=== PATIENT | female | born 1935 | race Caucasian/White ===

== ENCOUNTER 2017-07-11 14:43 | Inpatient (IN) | payer MEDICARE, BC ==
[~2017-07-11] VITALS: Ht 162.6 cm; Wt 46.3 kg
[2017-07-11] MEDS ORDERED: Sodium Chloride 500ML 500 ML IV ONE (15:09)
[2017-07-11 15:10] VITALS: BP 123/63
[2017-07-11] MEDS ORDERED: VITAMIN C500 M1 ORAL (15:20)
[2017-07-11] MEDS ORDERED: ASPIRIN-LOW81 MG ORAL (15:20)
[2017-07-11] MEDS ORDERED: IMODIUM A-D2 M2 PO (15:20)
[2017-07-11] MEDS ORDERED: VITAMIN B122500 MCG PO (15:20)
[2017-07-11] MEDS ORDERED: SINEMET 25-1001 EAC1 ORAL (15:20)
[2017-07-11] MEDS ORDERED: CALCIUM500 M2 PO (15:20)
[2017-07-11] MEDS ORDERED: CRANBERRY400 MG PO (15:20)
[2017-07-11] MEDS ORDERED: OMEPRAZOLE20 M2 ORAL (15:20)
[2017-07-11] MEDS ORDERED: DONEPEZIL HCL10 M2 ORAL (15:20)
[2017-07-11] MEDS ORDERED: UNOBMED (15:20)
[2017-07-11] MEDS ORDERED: OMEGA 3 1,0001 EACH PO (15:20)
[2017-07-11] MEDS ORDERED: VITAMIN D1000 UNI1 ORAL (15:20)
[2017-07-11] MEDS ORDERED: MACULAR HEALTH1 EACH PO (15:20)
[2017-07-11] MEDS ORDERED: MIRTAZAPINE15 M3 ORAL (15:20)
[2017-07-11 15:59] LABS: BASOPHILS % (AUTO) 0.6 % (0.0-2.0); EOSINOPHILS % (AUTO) 1.1 % (0.0-3.0); HEMATOCRIT 37.7 % (37.0-47.0); HEMOGLOBIN 11.9 G/DL (12.0-16.0); LYMPHOCYTES % (AUTO) 7.6 % (20.0-45.0); MEAN CORPUSCULAR VOLUME 96 FL (80-99); NEUTROPHILS % (AUTO) 82.6 % (45.0-75.0); PLATELET COUNT 413 K/UL (150-450); RED BLOOD COUNT 3.91 M/UL (4.20-5.40); RED CELL DISTRIBUTION WIDTH 12.7 % (11.6-14.8); WHITE BLOOD COUNT 9.7 K/UL (4.8-10.8)
[2017-07-11 16:05] LABS: ANION GAP 10 mmol/L (5-15); BLOOD UREA NITROGEN 20 mg/dL (7-18); CALCIUM 8.7 MG/DL (8.5-10.1); CARBON DIOXIDE 26 MMOL/L (21-32); CHLORIDE 107 MMOL/L (98-107); CREATININE 0.8 MG/DL (0.55-1.30); POTASSIUM 4.8 MMOL/L (3.5-5.1); SODIUM 142 MMOL/L (136-145)
--- NOTE | 2017-07-11 16:05 | Emergency Room Report ---
History of Present Illness General Chief Complaint: General Complaint Source: Patient, Family Member, Medical Record Present Illness HPI 81-year-old female presents to ED for evaluation. Daughter at bedside states that patient has been increasingly weak and has been losing weight. Has lost over 20 pounds. [facility] Daughter states patient also has increased right hip pain for last 1 year. Had x-rays which were negative but patient continues to have pain with walking. Patient denies any pain at this time because she is resting. Denies chest pain or shortness of breath fevers or chills. No other aggravating relieving factors. Denies any other associated symptoms Allergies: Coded Allergies: DICLOFENAC (Verified Allergy, Unknown, 07/11/17) SULFA (SULFONAMIDE ANTIBIOTICS) (Verified Allergy, Unknown, 07/11/17) SULFAMETHOXAZOLE (Verified Allergy, Unknown, 07/11/17) TRIMETHOPRIM (Verified Allergy, Unknown, 07/11/17) Patient History Past Medical History: none Past Surgical History: none Pertinent Family History: none Social History: Denies: smoking, alcohol use, drug use Last Menstrual Period: Post Now: No Immunizations: UTD Reviewed Nursing Documentation: PMH: Agreed, PSxH: Agreed Review of Systems All Other Systems: negative except mentioned in HPI Physical Exam Vital Signs Date Time Temp Pulse Resp B/P (MAP) Pulse Ox O2 Delivery O2 Flow Rate FiO2 07/11/17 14:54 98.4 86 17 123/63 97 Room Air Sp02 EP Interpretation: reviewed, normal General Appearance: no apparent distress, alert, GCS 15, non-toxic, cachetic Head: normocephalic, atraumatic Eyes: bilateral eye normal inspection, bilateral eye PERRL ENT: hearing grossly normal, normal pharynx, no angioedema, normal voice Neck: full range of motion, supple/symm/no masses Respiratory: chest non-tender, lungs clear, normal breath sounds, speaking full sentences Cardiovascular #1: regular rate, rhythm, no edema Cardiovascular #2: 2+ carotid (R), 2+ carotid (L), 2+ radial (R), 2+ radial (L) , 2+ dorsalis pedis (R), 2+ dorsalis pedis (L) Gastrointestinal: normal bowel sounds, non tender, soft, non-distended, no guarding, no rebound Rectal: deferred Genitourinary: normal inspection, no CVA tenderness Musculoskeletal: back normal, gait/station normal, normal range of motion, non- tender Neurologic: alert, oriented x3, responsive, motor strength/tone normal, sensory intact, speech normal Psychiatric: judgement/insight normal, memory normal, mood/affect normal, no suicidal/homicidal ideation Reflexes: 3+ bicep (R), 3+ bicep (L), 3+ tricep (R), 3+ tricep (L), 3+ knee (R) , 3+ knee (L) Skin: normal color, no rash, warm/dry, well hydrated Lymphatic: no adenopathy Medical Decision Making Diagnostic Impression: Primary Impression: FTT (failure to thrive) in adult Additional Impressions: Weakness Hip pain, right ER Course Hospital Course 81-year-old female presenting to ED with generalized weakness, weight loss Differential diagnoses include: Pneumonia, UTI, sepsis, dehydration, CO/ unstable angina, failure to thrive Clinical course Patient placed on stretcher. On monitor tech with stable vitals. After initial history and physical, I ordered labs, IV fluids, EKG, chest x-ray, CT Pelvis Labs - no leukocytosis, hb/hct stable, electrolytes ok, EKG - NSR, no acute ischemic changes interpreted by me CXR - ? L lobar infiltrate vs nodule CT Pelvis - severe degenerative changes in bialteral hips abx given. Case discussed with Dr Carrasco and they agreed to admit patient to their service for further care and support I feel this is a highly complex case requiring extensive working including EKG/ Rhythm strip, Xray/CT/US, Blood/urine lab work, repeat exams while in ED, and administration of strong opiates/narcotics for pain control, admission to hospital or close patient follow up. Diagnosis - failure to thrive, weakness, R hip pain Patient admitted to floor in serious condition Labs Test 07/11/17 13:45 07/11/17 16:40 White Blood Count 9.7 K/UL (4.8-10.8) Red Blood Count 3.91 M/UL (4.20-5.40) Hemoglobin 11.9 G/DL (12.0-16.0) Hematocrit 37.7 % (37.0-47.0) Mean Corpuscular Volume 96 FL (80-99) Mean Corpuscular Hemoglobin 30.4 PG (27.0-31.0) Mean Corpuscular Hemoglobin Concent 31.6 G/DL (32.0-36.0) Red Cell Distribution Width 12.7 % (11.6-14.8) Platelet Count 413 K/UL (150-450) Mean Platelet Volume 6.6 FL (6.5-10.1) Neutrophils (%) (Auto) 82.6 % (45.0-75.0) Lymphocytes (%) (Auto) 7.6 % (20.0-45.0) Monocytes (%) (Auto) 8.0 % (1.0-10.0) Eosinophils (%) (Auto) 1.1 % (0.0-3.0) Basophils (%) (Auto) 0.6 % (0.0-2.0) Sodium Level 142 MMOL/L (136-145) Potassium Level 4.8 MMOL/L (3.5-5.1) Chloride Level 107 MMOL/L (98-107) Carbon Dioxide Level 26 MMOL/L (21-32) Anion Gap 10 mmol/L (5-15) Blood Urea Nitrogen 20 mg/dL (7-18) Creatinine 0.8 MG/DL (0.55-1.30) Estimat Glomerular Filtration Rate mL/min (>60) Glucose Level 100 MG/DL (74-106) Calcium Level 8.7 MG/DL (8.5-10.1) Total Bilirubin 0.3 MG/DL (0.2-1.0) Aspartate Amino Transf (AST/SGOT) 33 U/L (15-37) Alanine Aminotransferase (ALT/SGPT) 16 U/L (12-78) Alkaline Phosphatase 146 U/L (46-116) Total Protein 6.1 G/DL (6.4-8.2) Albumin 2.7 G/DL (3.4-5.0) Globulin 3.4 g/dL Albumin/Globulin Ratio 0.8 (1.0-2.7) EKG Diagnostic Results Rate: normal Rhythm: NSR ST Segments: no acute changes ASA given to the pt in ED: No Rhythm Strip Diag. Results EP Interpretation: yes Rhythm: NSR, no PVC's, no ectopy Chest X-Ray Diagnostic Results Chest X-Ray Diagnostic Results : Chest X-Ray Ordered: Yes # of Views/Limited/Complete: 1 View Indication: Other - weakness EP Interpretation: Yes Interpretation: no pneumothorax, no acute cardiopulmonary disease, other - LLL infiltrate Impression: Other - pneumonia Electronically Signed by: Electronically signed by Kenny Wilde MD CT/MRI/US Diagnostic Results CT/MRI/US Diagnostic Results : Imaging Test Ordered: CT PElvis Impression severe degeneratives changes bilateral hips Last Vital Signs Date Time Temp Pulse Resp B/P (MAP) Pulse Ox O2 Delivery O2 Flow Rate FiO2 07/11/17 14:54 98.4 86 17 123/63 97 Room Air Status: improved Disposition: ADMITTED INPATIENT Condition: Serious Referrals: OLAF CARRASCO (PCP) KENNY WILDE M.D. Jul 11, 2017 16:05
[2017-07-11 16:09] LABS: ALANINE AMINOTRANSFERASE 16 U/L (12-78); ALBUMIN 2.7 G/DL (3.4-5.0); ALBUMIN/GLOBULIN RATIO 0.8 (1.0-2.7); ALKALINE PHOSPHATASE 146 U/L (46-116); ASPARTATE AMINO TRANSFERASE 33 U/L (15-37); BILIRUBIN,TOTAL 0.3 MG/DL (0.2-1.0)
--- NOTE | 2017-07-11 16:11 | Diagnostic Imaging Report ---
Indication: Weakness and cough Technique: One view of the chest Comparison: none Findings: Linear and nodular opacities are seen scattered throughout the left mid and lower lung. The right lung and bilateral pleural spaces are clear and the heart size is normal. Impression: Linear and nodular opacities within left lung, as described. Findings could represent infiltrate, postinflammatory changes, or neoplasm, among multiple other possibilities. Recommend follow-up chest radiographs, consideration for CT if findings fail to improve Findings discussed by phone with Dr. Wilde at the time of interpretation
--- NOTE | 2017-07-11 16:59 | Diagnostic Imaging Report ---
Indication: Reason For Exam: PAIN Technique: No oral or IV contrast, per protocol Spiral acquisitions obtained through the pelvis and right hip Multiplanar reconstructions were generated. Total dose length product 241.5 mGycm. CTDIvol(s) 8.4 mGy. Radiation dose was minimized using automated exposure control Comparison: none Findings: There is complete obliteration of the bilateral hip joint spaces. There is subchondrosclerosis and subchondral cyst formation. No acute fractures. No dislocations. Vacuum formation within the bilateral sacroiliac joints is consistent with mild degenerative change. There are degenerative changes of the lumbosacral junction. There is what appears to be a surgical anastomotic staple line in the right side of the pelvis, possibly in the distal ileum. Dense stool is seen in the distal colon. Impression: Severe degenerative changes of both hips No acute bony trauma Evidence of right-sided pelvic surgery The CT scanner at [facility] is accredited by the [employer] and the scans are performed using protocols designed to limit radiation exposure to as low as reasonably achievable to attain images of sufficient resolution adequate for diagnostic evaluation.
[2017-07-11 17:10] VITALS: BP 132/67
[2017-07-11] MEDS ORDERED: Mylanta II UD 30ml ORAL PRN (17:30)
[2017-07-11] MEDS ORDERED: Miralax 17gm pkt ORAL PRN (17:30)
[2017-07-11] MEDS ORDERED: Morphine Sulfate 2mg/ml Inj IVP PRN (17:30)
[2017-07-11] MEDS ORDERED: Zolpidem 5mg tab ORAL PRN (17:30)
[2017-07-11] MEDS ORDERED: LORazepam Inj 2mg/ml 1ml IV PRN (17:30)
[2017-07-11 17:37] VITALS: BP 168/76
[2017-07-11] MEDS: Levodopa/Carbidopa 25/100 tab ORAL SCH (19:54)
[2017-07-11 20:00] VITALS: BP 143/66
[2017-07-11 21:42] LABS: APPEARANCE,URINE CLEAR; BILIRUBIN, URINE NEGATIVE (NEGATIVE); COLOR,URINE PALE YELLOW; GLUCOSE, URINE (UA) NEGATIVE (NEGATIVE); KETONES,URINE NEGATIVE (NEGATIVE); LEUKOCYTE ESTERASE ,URINE 1+ (NEGATIVE); NITRITE,URINE NEGATIVE (NEGATIVE); PH,URINE 6 (4.5-8.0); PROTEIN,URINE NEGATIVE (NEGATIVE); UROBILINOGEN,URINE NORMAL MG/DL (0.0-1.0)
--- NOTE | 2017-07-11 22:59 | History and Physical ---
History of Present Illness General Date patient seen: Jul 11, 2017 Time patient seen: 18:00 Reason for Hospitalization: generalized weakness, weight loss, severe hip pain Present Illness HPI 81y/o female with pm of Parkinson's disease, dementia, GERD who presents with generalized weakness, weight loss and severe b/l hip pain. Daughter at bedside states that patient has been increasingly weak and has been losing weight. Pt has lost over 20 pounds. Pt notes poor appetite. Patient resides in an [facility]. Daughter states patient also has increased R>L hip pain for last 1 year. Had x- rays which were negative but patient continues to have pain with walking. Because of the pain pt has not been doing much activity. Patient denies any pain at this time because she is resting. Daughter also notes pt has been more confused lately. Denies f/c, n/v, d/c, chest pain, SOB, cough, abd pain, dysuria. Pt was recently seen by her neurologist a few weeks ago and her Sinemet dose was reduced from TID to BID given lethargy/weakness. In ED, CXR w/ concern for infiltrate, given Levaquin. Allergies: Coded Allergies: DICLOFENAC (Verified Allergy, Unknown, 07/11/17) SULFA (SULFONAMIDE ANTIBIOTICS) (Verified Allergy, Unknown, 07/11/17) SULFAMETHOXAZOLE (Verified Allergy, Unknown, 07/11/17) TRIMETHOPRIM (Verified Allergy, Unknown, 07/11/17) Medication History Scheduled Ascorbic Acid* (Vitamin C*), 500 MG ORAL DAILY, (Reported) Aspirin (Aspirin EC), 81 MG ORAL DAILY, (Reported) Calcium Carbonate (Calcium), 500 MG PO DAILY, (Reported) Carbidopa/Levodopa 25-100 Mg* (Sinemet 25-100 Mg Tablet*), 1 TAB ORAL BID, ( Reported) Cholecalciferol (Vitamin D3)* (Vitamin D*), 1,000 UNIT ORAL DAILY, (Reported) Cranberry (Cranberry), 400 MG PO BEDTIME, (Reported) Cyanocobalamin (Vitamin B-12) (Vitamin B12), 2,500 MCG PO DAILY, (Reported) Donepezil Hcl* (Donepezil Hcl*), 10 MG ORAL HS, (Reported) Mirtazapine* (Mirtazapine*), 15 MG ORAL BEDTIME, (Reported) Mv-Mn/Lutein/Zeax/Bilber/Hb277 (Macular Health Formula Capsule), 1 EACH PO DAILY , (Reported) [place]-3 Fatty Acids/Fish Oil ([place] 3 1,000 Mg Softgel), 1 EACH PO DAILY, ( Reported) Omeprazole (Omeprazole), 20 MG ORAL DAILY, (Reported) Scheduled PRN Loperamide HCl (Imodium A-D), 2 MG PO EVERY 6 HOURS PRN for Diarrhea, (Reported) Miscellaneous Medications Unable to Obtain Medications (Unable To Obtain Meds), (Reported) Patient History History Provided By: Patient, Family Member, Medical Record, PMD Healthcare decision maker NICO PA Resuscitation status DNR/DNI Advanced Directive on File Yes Past Medical/Surgical History Past Medical/Surgical History: (1) Parkinsons disease (2) Dementia (3) GERD (gastroesophageal reflux disease) Family History Family History: Patient reports no known family medical history. Social History Social History: (1) Lives in assisted living facility Review of Systems Constitutional: Reports: malaise, weakness Eye: Reports: no symptoms ENT: Reports: no symptoms Respiratory: Reports: no symptoms Cardiovascular: Reports: no symptoms Gastrointestinal: Reports: no symptoms Genitourinary: Reports: no symptoms Musculoskeletal: Reports: joint pain Skin: Reports: no symptoms Psychiatric: Reports: no symptoms Neurological: Reports: no symptoms Endocrine: Reports: no symptoms Hematologic/Lymphatic: Reports: no symptoms All Other Systems: negative except mentioned in HPI Physical Exam Physical Exam Narrative General: alert, cooperative, no distress, appears stated age, thin Head: normocephalic, without obvious abnormality, atraumatic Eyes: conjunctivae/corneas clear. PERRL, EOM's intact Throat: lips, mucosa, and tongue normal. MMM Neck: supple, symmetrical, trachea midline, and no JVD Lungs: clear to auscultation bilaterally Heart: regular rate and rhythm, S1, S2 normal, no murmur, click, rub or gallop Abdomen: soft, non-tender, non-distended, bowel sounds normal Extremities: extremities normal, atraumatic, no cyanosis or edema Pulses: 2+ and symmetric Skin: skin color, texture, turgor normal; no rashes or lesions Neurologic: grossly normal, no focal deficits Last 24 Hour Vital Signs Date Time Temp Pulse Resp B/P (MAP) Pulse Ox O2 Delivery O2 Flow Rate FiO2 07/11/17 20:00 98.2 80 18 143/66 96 07/11/17 20:00 Room Air 07/11/17 17:37 97.5 74 18 168/76 97 07/11/17 17:10 98.4 85 20 132/67 98 Room Air 07/11/17 17:10 85 20 132/67 98 Room Air 07/11/17 15:10 98.4 84 20 123/63 97 Room Air 07/11/17 14:54 98.4 86 17 123/63 97 Room Air Laboratory Tests Test 07/11/17 13:45 07/11/17 16:40 07/11/17 20:20 White Blood Count 9.7 K/UL (4.8-10.8) Red Blood Count 3.91 M/UL (4.20-5.40) L Hemoglobin 11.9 G/DL (12.0-16.0) L Hematocrit 37.7 % (37.0-47.0) Mean Corpuscular Volume 96 FL (80-99) Mean Corpuscular Hemoglobin 30.4 PG (27.0-31.0) Mean Corpuscular Hemoglobin Concent 31.6 G/DL (32.0-36.0) L Red Cell Distribution Width 12.7 % (11.6-14.8) Platelet Count 413 K/UL (150-450) Mean Platelet Volume 6.6 FL (6.5-10.1) Neutrophils (%) (Auto) 82.6 % (45.0-75.0) H Lymphocytes (%) (Auto) 7.6 % (20.0-45.0) L Monocytes (%) (Auto) 8.0 % (1.0-10.0) Eosinophils (%) (Auto) 1.1 % (0.0-3.0) Basophils (%) (Auto) 0.6 % (0.0-2.0) Sodium Level 142 MMOL/L (136-145) Potassium Level 4.8 MMOL/L (3.5-5.1) Chloride Level 107 MMOL/L (98-107) Carbon Dioxide Level 26 MMOL/L (21-32) Anion Gap 10 mmol/L (5-15) Blood Urea Nitrogen 20 mg/dL (7-18) H Creatinine 0.8 MG/DL (0.55-1.30) Estimat Glomerular Filtration Rate mL/min (>60) Glucose Level 100 MG/DL (74-106) Calcium Level 8.7 MG/DL (8.5-10.1) Total Bilirubin 0.3 MG/DL (0.2-1.0) Aspartate Amino Transf (AST/SGOT) 33 U/L (15-37) Alanine Aminotransferase (ALT/SGPT) 16 U/L (12-78) Alkaline Phosphatase 146 U/L (46-116) H Total Protein 6.1 G/DL (6.4-8.2) L Albumin 2.7 G/DL (3.4-5.0) L Globulin 3.4 g/dL Albumin/Globulin Ratio 0.8 (1.0-2.7) L Lactic Acid Level 1.90 mmol/L (0.66-2.22) Urine Color Pale yellow Urine Appearance Clear Urine pH 6 (4.5-8.0) Urine Specific [place] 1.015 (1.005-1.035) Urine Protein Negative (NEGATIVE) Urine Glucose (UA) Negative (NEGATIVE) Urine Ketones Negative (NEGATIVE) Urine Occult Blood Negative (NEGATIVE) Urine Nitrite Negative (NEGATIVE) Urine Bilirubin Negative (NEGATIVE) Urine Urobilinogen Normal MG/DL (0.0-1.0) Urine Leukocyte Esterase 1+ (NEGATIVE) H Urine RBC 0-2 /HPF (0 - 2) Urine WBC 2-4 /HPF (0 - 2) Urine Squamous Epithelial Cells Few /LPF (NONE/OCC) Urine Amorphous Sediment Few /LPF (NONE) H Urine Bacteria Few /HPF (NONE) Height (Feet): 5 Height (Inches): 4.00 Weight (Pounds): 102 Medications Current Medications Medications (Trade) Dose Ordered Sig/Mary Route PRN Reason Start Time Stop Time Status Last Admin Dose Admin Acetaminophen (Tylenol) 650 mg Q4H PRN ORAL fever 07/11/17 17:30 08/10/17 17:29 Al Hydroxide/Mg Hydroxide (Mylanta II) 30 ml Q6H PRN ORAL dyspepsia 07/11/17 17:30 08/10/17 17:29 Carbidopa/Levodopa (Sinemet 25/100) 1 tab BID ORAL 07/11/17 18:00 08/10/17 17:59 07/11/17 19:54 Dextrose (Dextrose 50%) STAT PRN IV Hypoglycemia 07/11/17 17:30 08/10/17 17:29 Donepezil HCl (Aricept) 10 mg DAILY ORAL 07/12/17 09:00 08/11/17 08:59 Lorazepam (Ativan 2mg/ml 1ml) 0.5 mg Q4H PRN IV For Anxiety 07/11/17 17:30 07/18/17 17:29 Mirtazapine (Remeron) 15 mg BEDTIME ORAL 07/11/17 21:00 08/10/17 20:59 07/11/17 21:23 Morphine Sulfate (Morphine Sulfate) 1 mg Q4H PRN IVP For Pain Scale 4-10 07/11/17 17:30 07/18/17 17:29 Ondansetron HCl (Zofran) 4 mg Q6H PRN IVP Nausea & Vomiting 07/11/17 17:30 08/10/17 17:29 Polyethylene Glycol (Miralax) 17 gm HSPRN PRN ORAL Constipation 07/11/17 17:30 08/10/17 17:29 Zolpidem Tartrate (Ambien) 5 mg HSPRN PRN ORAL Insomnia 07/11/17 17:30 07/18/17 17:29 Assessment/Plan Problem List: (1) FTT (failure to thrive) in adult ICD Codes: R62.7 - Adult failure to thrive SNOMED: 300261074 (2) Severe bilateral hip osteoarthritis (3) Acute encephalopathy ICD Codes: G93.40 - Encephalopathy, unspecified SNOMED: 7849625 (4) Dementia ICD Codes: F03.90 - Unspecified dementia without behavioral disturbance SNOMED: 56186135 (5) Parkinsons disease ICD Codes: G20 - Parkinson's disease SNOMED: 99280855 (6) GERD (gastroesophageal reflux disease) ICD Codes: K21.9 - Gastro-esophageal reflux disease without esophagitis SNOMED: 750788940 (7) Severe protein-calorie malnutrition ICD Codes: E43 - Unspecified severe protein-calorie malnutrition SNOMED: 153277374 Status: stable Assessment/Plan Admit inpt mIVFs Nutritional eval Trend lytes and replete Swallow eval Check B12/folate, TSH, RPR, vit D to r/o metoblic etiologies of AMS F/u urine cx Pulm consulted given findings on CXR s/p Levaquin in ED PT/OT eval Pain control, bowel regimen Supportive care DVT Prophylaxis: SCD, HSQ Code Status: Full Hospital Classification Declaration: Based on this initial evaluation, and depending on the patient's clinical course, I anticipate that this patient will require hospitalization for 2-3 days for FTT, AMS, and close respiratory/ hemodynamic monitoring. Disposition: Once the patient is stable to leave the hospital, I anticipate the patient will likely be discharged to the following environment: [facility] I spen 70 minutes on this patient's case, and >50% was dedicated to counseling and/or care coordination. Discussed with patient/family, nursing staff, SW/CM, ER physician, pulm regarding clinical status, treatment course, and disposition planning. D/w daughter extensively regarding plan of care Time of note may not reflect time of encounter. Juan Bar M.D. Jul 11, 2017 22:59
[2017-07-12] VITALS: BP 139/82
[2017-07-12 04:00] VITALS: BP 144/86
[2017-07-12 07:58] LABS: BASOPHILS % (AUTO) 0.8 % (0.0-2.0); EOSINOPHILS % (AUTO) 1.8 % (0.0-3.0); HEMATOCRIT 38.8 % (37.0-47.0); HEMOGLOBIN 12.3 G/DL (12.0-16.0); LYMPHOCYTES % (AUTO) 11.8 % (20.0-45.0); MEAN CORPUSCULAR VOLUME 98 FL (80-99); MONOCYTES % (AUTO) 8.1 % (1.0-10.0); NEUTROPHILS % (AUTO) 77.5 % (45.0-75.0); PLATELET COUNT 462 K/UL (150-450); RED BLOOD COUNT 3.98 M/UL (4.20-5.40); WHITE BLOOD COUNT 9.6 K/UL (4.8-10.8)
[2017-07-12 08:00] VITALS: BP 103/55
[2017-07-12 08:36] LABS: ALANINE AMINOTRANSFERASE 16 U/L (12-78); ALBUMIN 2.9 G/DL (3.4-5.0); ALBUMIN/GLOBULIN RATIO 0.8 (1.0-2.7); ALKALINE PHOSPHATASE 140 U/L (46-116); ANION GAP 9 mmol/L (5-15); ASPARTATE AMINO TRANSFERASE 22 U/L (15-37); BILIRUBIN,TOTAL 0.4 MG/DL (0.2-1.0); BLOOD UREA NITROGEN 13 mg/dL (7-18); CALCIUM 9.2 MG/DL (8.5-10.1); CARBON DIOXIDE 29 MMOL/L (21-32); CHLORIDE 106 MMOL/L (98-107); CHOLESTEROL 144 MG/DL (< 200); CREATININE 0.7 MG/DL (0.55-1.30); HDL CHOLESTEROL 49 MG/DL (40-60); SODIUM 144 MMOL/L (136-145); TRIGLYCERIDES 107 MG/DL (30-150)
[2017-07-12] MEDS: Donepezil 10mg tab ORAL SCH (08:57)
[2017-07-12] MEDS: Levodopa/Carbidopa 25/100 tab ORAL SCH ×2 (08:57→18:12)
[2017-07-12 11:47] VITALS: BP 131/63
[2017-07-12 16:00] VITALS: BP 136/73
--- NOTE | 2017-07-12 17:57 | General Progress Note ---
Assessment/Plan Problem List: (1) FTT (failure to thrive) in adult ICD Codes: R62.7 - Adult failure to thrive SNOMED: 634921394 (2) Severe bilateral hip osteoarthritis (3) Acute encephalopathy ICD Codes: G93.40 - Encephalopathy, unspecified SNOMED: 0170638 (4) Dementia ICD Codes: F03.90 - Unspecified dementia without behavioral disturbance SNOMED: 65519940 (5) Parkinsons disease ICD Codes: G20 - Parkinson's disease SNOMED: 91608526 (6) GERD (gastroesophageal reflux disease) ICD Codes: K21.9 - Gastro-esophageal reflux disease without esophagitis SNOMED: 144943005 (7) Severe protein-calorie malnutrition ICD Codes: E43 - Unspecified severe protein-calorie malnutrition SNOMED: 173730192 Status: stable Assessment/Plan Will consult neurology given concern for worsening confusion Nutritional eval MVI daily started Ensure TID F/u calorie counts Trend lytes and replete. Monitor for refeeding syndrome Swallow eval--soft easy to chew, nectar thick liquids Check B12/folate, TSH, RPR, vit D to r/o metabolic etiologies of AMS F/u urine cx Pulm consulted given findings on CXR s/p Levaquin in ED PT/OT eval Pain control, bowel regimen Supportive care DVT Prophylaxis: SCD, HSQ Code Status: DNR/DNI Hospital Classification Declaration: Based on this initial evaluation, and depending on the patient's clinical course, I anticipate that this patient will require hospitalization for 2-3 days for FTT, AMS, and close respiratory/ hemodynamic monitoring. Disposition: Once the patient is stable to leave the hospital, I anticipate the patient will likely be discharged to the following environment: back to [facility] vs SNF Discussed with patient/family, nursing staff, SW/CM, ER physician, pulm regarding clinical status, treatment course, and disposition planning. D/w daughter extensively regarding plan of care Time of note may not reflect time of encounter. Subjective Date patient seen: Jul 12, 2017 Time patient seen: 12:00 ROS Limited/Unobtainable: Yes Constitutional: Reports: malaise, weakness HEENT: Reports: no symptoms Cardiovascular: Reports: no symptoms Respiratory: Reports: no symptoms Gastrointestinal/Abdominal: Reports: no symptoms Genitourinary: Reports: no symptoms Neurologic/Psychiatric: Reports: no symptoms Endocrine: Reports: no symptoms, unexplained weight loss Hematologic/Lymphatic: Reports: no symptoms Allergies: Coded Allergies: DICLOFENAC (Verified Allergy, Unknown, 07/11/17) SULFA (SULFONAMIDE ANTIBIOTICS) (Verified Allergy, Unknown, 07/11/17) SULFAMETHOXAZOLE (Verified Allergy, Unknown, 07/11/17) TRIMETHOPRIM (Verified Allergy, Unknown, 07/11/17) Subjective No acute o/n events Pt cont to have poor PO intake. Daughter at bedside notes that pt is more confused than usual. Per RN, pt attempting to get out of bed on own, so sitter ordered. Advance directive reviewed with daughter and pt is DNR/DNI Objective Last 24 Hour Vital Signs Date Time Temp Pulse Resp B/P (MAP) Pulse Ox O2 Delivery O2 Flow Rate FiO2 07/12/17 11:47 97.9 87 20 131/63 94 07/12/17 08:00 98.2 90 21 103/55 95 07/12/17 04:00 Room Air 07/12/17 04:00 98.0 80 18 144/86 96 07/12/17 00:00 Room Air 07/12/17 00:00 98.1 83 18 139/82 96 07/11/17 20:00 98.2 80 18 143/66 96 07/11/17 20:00 Room Air Intake and Output 07/11/17 07/12/17 19:00 07:00 Intake Total 200 ml Balance 200 ml Intake Oral 200 ml # Voids 15 Laboratory Tests 07/11/17 20:20: Urine Color Pale yellow, Urine Appearance Clear, Urine pH 6, Urine Specific [place] 1.015, Urine Protein Negative, Urine Glucose (UA) Negative, Urine Ketones Negative, Urine Occult Blood Negative, Urine Nitrite Negative, Urine Bilirubin Negative, Urine Urobilinogen Normal, Urine Leukocyte Esterase 1+H, Urine RBC 0-2, Urine WBC 2-4, Urine Squamous Epithelial Cells Few, Urine Amorphous Sediment FewH, Urine Bacteria Few 07/12/17 05:10: White Blood Count 9.6, Red Blood Count 3.98L, Hemoglobin 12.3, Hematocrit 38.8, Mean Corpuscular Volume 98, Mean Corpuscular Hemoglobin 31.0, Mean Corpuscular Hemoglobin Concent 31.8L, Red Cell Distribution Width 13.0, Platelet Count 462H , Mean Platelet Volume 6.4L, Neutrophils (%) (Auto) 77.5H, Lymphocytes (%) (Auto ) 11.8L, Monocytes (%) (Auto) 8.1, Eosinophils (%) (Auto) 1.8, Basophils (%) ( Auto) 0.8, Sodium Level 144, Potassium Level 4.0, Chloride Level 106, Carbon Dioxide Level 29, Anion Gap 9, Blood Urea Nitrogen 13, Creatinine 0.7, Estimat Glomerular Filtration Rate , Glucose Level 78, Calcium Level 9.2, Total Bilirubin 0.4, Aspartate Amino Transf (AST/SGOT) 22, Alanine Aminotransferase ( ALT/SGPT) 16, Alkaline Phosphatase 140H, Total Protein 6.4, Albumin 2.9L, Globulin 3.5, Albumin/Globulin Ratio 0.8L, Triglycerides Level 107, Cholesterol Level 144, LDL Cholesterol 82, HDL Cholesterol 49, Cholesterol/HDL Ratio 2.9L, Vitamin B12 Level > 2000H, Folate 14.3, Thyroid Stimulating Hormone (TSH) 2.706 07/12/17 11:25: Vitamin D 25-Hydroxy [Pending], 25-Hydroxy Vitamin D2 [Pending], 25-Hydroxy Vitamin D3 [Pending] Height (Feet): 5 Height (Inches): 4.00 Weight (Pounds): 102 Objective General: alert, cooperative, no distress, appears stated age, thin Head: normocephalic, without obvious abnormality, atraumatic Eyes: conjunctivae/corneas clear. PERRL, EOM's intact Throat: lips, mucosa, and tongue normal. MMM Neck: supple, symmetrical, trachea midline, and no JVD Lungs: clear to auscultation bilaterally Heart: regular rate and rhythm, S1, S2 normal, no murmur, click, rub or gallop Abdomen: soft, non-tender, non-distended, bowel sounds normal Extremities: extremities normal, atraumatic, no cyanosis or edema Pulses: 2+ and symmetric Skin: skin color, texture, turgor normal; no rashes or lesions Neurologic: grossly normal, no focal deficits, +resting tremor b/l Juan Bar M.D. Jul 12, 2017 17:57
--- NOTE | 2017-07-12 18:31 | Consultation ---
History of Present Illness General Date patient seen: Jul 12, 2017 Chief Complaint: General Complaint Referring physician: Dr Roberson Reason for Consultation: pneumonia Present Illness HPI 81-year-old female with pamhx of mid dementia, Parkinson disease presented to ED for evaluation of increasingly weakness and weight loss. She has lost over 20 pounds. Patient resides in assisted facility. Daughter states patient also has increased right hip pain for last 1 year. Had x-rays which were negative but patient continues to have pain with walking. Patient denies any pain at this time because she is resting. Denies chest pain or shortness of breath fevers or chills. No other aggravating relieving factors. Denies any other associated symptoms. Her cxr showed multiple nodule and I was asked to evaluate those findings. Allergies: Coded Allergies: DICLOFENAC (Verified Allergy, Unknown, 07/11/17) SULFA (SULFONAMIDE ANTIBIOTICS) (Verified Allergy, Unknown, 07/11/17) SULFAMETHOXAZOLE (Verified Allergy, Unknown, 07/11/17) TRIMETHOPRIM (Verified Allergy, Unknown, 07/11/17) Medication History Scheduled Ascorbic Acid* (Vitamin C*), 500 MG ORAL DAILY, (Reported) Aspirin (Aspirin EC), 81 MG ORAL DAILY, (Reported) Calcium Carbonate (Calcium), 500 MG PO DAILY, (Reported) Carbidopa/Levodopa 25-100 Mg* (Sinemet 25-100 Mg Tablet*), 1 TAB ORAL BID, ( Reported) Cholecalciferol (Vitamin D3)* (Vitamin D*), 1,000 UNIT ORAL DAILY, (Reported) Cranberry (Cranberry), 400 MG PO BEDTIME, (Reported) Cyanocobalamin (Vitamin B-12) (Vitamin B12), 2,500 MCG PO DAILY, (Reported) Donepezil Hcl* (Donepezil Hcl*), 10 MG ORAL HS, (Reported) Mirtazapine* (Mirtazapine*), 15 MG ORAL BEDTIME, (Reported) Mv-Mn/Lutein/Zeax/Bilber/Hb277 (Macular Health Formula Capsule), 1 EACH PO DAILY , (Reported) Ararat-3 Fatty Acids/Fish Oil (Ararat 3 1,000 Mg Softgel), 1 EACH PO DAILY, ( Reported) Omeprazole (Omeprazole), 20 MG ORAL DAILY, (Reported) Scheduled PRN Loperamide HCl (Imodium A-D), 2 MG PO EVERY 6 HOURS PRN for Diarrhea, (Reported) Miscellaneous Medications Unable to Obtain Medications (Unable To Obtain Meds), (Reported) Patient History Healthcare decision maker NICO PA Resuscitation status Advanced Directive on File Yes Past Medical/Surgical History Past Medical/Surgical History: (1) Dementia (2) Parkinsons disease Review of Systems All Other Systems: negative except mentioned in HPI Physical Exam General Appearance: cachetic Lines, tubes and drains: peripheral HEENT: normocephalic, atraumatic Neck: non-tender, normal alignment Respiratory/Chest: chest wall non-tender, lungs clear Breasts: no masses Cardiovascular/Chest: normal peripheral pulses Abdomen: normal bowel sounds, non tender Genitourinary/Rectal: normal genital exam, normal rectal exam Extremities: normal range of motion Skin Exam: normal pigmentation Last 24 Hour Vital Signs Date Time Temp Pulse Resp B/P (MAP) Pulse Ox O2 Delivery O2 Flow Rate FiO2 07/12/17 16:00 98.2 86 20 136/73 96 07/12/17 11:47 97.9 87 20 131/63 94 07/12/17 08:00 98.2 90 21 103/55 95 07/12/17 04:00 Room Air 07/12/17 04:00 98.0 80 18 144/86 96 07/12/17 00:00 Room Air 07/12/17 00:00 98.1 83 18 139/82 96 07/11/17 20:00 98.2 80 18 143/66 96 07/11/17 20:00 Room Air Intake and Output 07/11/17 07/12/17 19:00 07:00 Intake Total 200 ml Balance 200 ml Intake Oral 200 ml # Voids 15 Laboratory Tests Test 07/11/17 20:20 07/12/17 05:10 07/12/17 11:25 Urine Color Pale yellow Urine Appearance Clear Urine pH 6 (4.5-8.0) Urine Specific [place] 1.015 (1.005-1.035) Urine Protein Negative (NEGATIVE) Urine Glucose (UA) Negative (NEGATIVE) Urine Ketones Negative (NEGATIVE) Urine Occult Blood Negative (NEGATIVE) Urine Nitrite Negative (NEGATIVE) Urine Bilirubin Negative (NEGATIVE) Urine Urobilinogen Normal MG/DL (0.0-1.0) Urine Leukocyte Esterase 1+ (NEGATIVE) H Urine RBC 0-2 /HPF (0 - 2) Urine WBC 2-4 /HPF (0 - 2) Urine Squamous Epithelial Cells Few /LPF (NONE/OCC) Urine Amorphous Sediment Few /LPF (NONE) H Urine Bacteria Few /HPF (NONE) White Blood Count 9.6 K/UL (4.8-10.8) Red Blood Count 3.98 M/UL (4.20-5.40) L Hemoglobin 12.3 G/DL (12.0-16.0) Hematocrit 38.8 % (37.0-47.0) Mean Corpuscular Volume 98 FL (80-99) Mean Corpuscular Hemoglobin 31.0 PG (27.0-31.0) Mean Corpuscular Hemoglobin Concent 31.8 G/DL (32.0-36.0) L Red Cell Distribution Width 13.0 % (11.6-14.8) Platelet Count 462 K/UL (150-450) H Mean Platelet Volume 6.4 FL (6.5-10.1) L Neutrophils (%) (Auto) 77.5 % (45.0-75.0) H Lymphocytes (%) (Auto) 11.8 % (20.0-45.0) L Monocytes (%) (Auto) 8.1 % (1.0-10.0) Eosinophils (%) (Auto) 1.8 % (0.0-3.0) Basophils (%) (Auto) 0.8 % (0.0-2.0) Sodium Level 144 MMOL/L (136-145) Potassium Level 4.0 MMOL/L (3.5-5.1) Chloride Level 106 MMOL/L (98-107) Carbon Dioxide Level 29 MMOL/L (21-32) Anion Gap 9 mmol/L (5-15) Blood Urea Nitrogen 13 mg/dL (7-18) Creatinine 0.7 MG/DL (0.55-1.30) Estimat Glomerular Filtration Rate mL/min (>60) Glucose Level 78 MG/DL (74-106) Calcium Level 9.2 MG/DL (8.5-10.1) Total Bilirubin 0.4 MG/DL (0.2-1.0) Aspartate Amino Transf (AST/SGOT) 22 U/L (15-37) Alanine Aminotransferase (ALT/SGPT) 16 U/L (12-78) Alkaline Phosphatase 140 U/L (46-116) H Total Protein 6.4 G/DL (6.4-8.2) Albumin 2.9 G/DL (3.4-5.0) L Globulin 3.5 g/dL Albumin/Globulin Ratio 0.8 (1.0-2.7) L Triglycerides Level 107 MG/DL (30-150) Cholesterol Level 144 MG/DL (< 200) LDL Cholesterol 82 mg/dL (<100) HDL Cholesterol 49 MG/DL (40-60) Cholesterol/HDL Ratio 2.9 (3.3-4.4) L Vitamin B12 Level > 2000 PG/ML (193-986) H Folate 14.3 NG/ML (8.6-58.9) Thyroid Stimulating Hormone (TSH) 2.706 uiU/mL (0.358-3.740) Vitamin D 25-Hydroxy Pending 25-Hydroxy Vitamin D2 Pending 25-Hydroxy Vitamin D3 Pending Height (Feet): 5 Height (Inches): 4.00 Weight (Pounds): 102 Medications Current Medications Medications (Trade) Dose Ordered Sig/Mary Route PRN Reason Start Time Stop Time Status Last Admin Dose Admin Acetaminophen (Tylenol) 650 mg Q4H PRN ORAL fever 07/11/17 17:30 08/10/17 17:29 Al Hydroxide/Mg Hydroxide (Mylanta II) 30 ml Q6H PRN ORAL dyspepsia 07/11/17 17:30 08/10/17 17:29 Carbidopa/Levodopa (Sinemet 25/100) 1 tab BID ORAL 07/11/17 18:00 08/10/17 17:59 07/12/17 18:12 Dextrose (Dextrose 50%) STAT PRN IV Hypoglycemia 07/11/17 17:30 08/10/17 17:29 Donepezil HCl (Aricept) 10 mg DAILY ORAL 07/12/17 09:00 08/11/17 08:59 07/12/17 08:57 Heparin Sodium (Porcine) (Heparin 5000 units/ml) 5,000 units EVERY 12 HOURS SUBQ 07/12/17 21:00 08/11/17 20:59 Lorazepam (Ativan 2mg/ml 1ml) 0.5 mg Q4H PRN IV For Anxiety 07/11/17 17:30 07/18/17 17:29 Mirtazapine (Remeron) 15 mg BEDTIME ORAL 07/11/17 21:00 08/10/17 20:59 07/11/17 21:23 Morphine Sulfate (Morphine Sulfate) 1 mg Q4H PRN IVP For Pain Scale 4-10 07/11/17 17:30 07/18/17 17:29 Multivitamins Therapeutic (Therapeutic Multivitamin) 1 ea DAILY ORAL 07/13/17 09:00 08/12/17 08:59 Ondansetron HCl (Zofran) 4 mg Q6H PRN IVP Nausea & Vomiting 07/11/17 17:30 08/10/17 17:29 Polyethylene Glycol (Miralax) 17 gm HSPRN PRN ORAL Constipation 07/11/17 17:30 08/10/17 17:29 Sodium Chloride 1,000 ml @ 75 mls/hr [id number] IV 07/12/17 20:00 08/11/17 19:59 Zolpidem Tartrate (Ambien) 5 mg HSPRN PRN ORAL Insomnia 07/11/17 17:30 07/18/17 17:29 07/11/17 23:45 Assessment/Plan Problem List: (1) nodular infiltrate of lung (2) Weakness ICD Codes: R53.1 - Weakness SNOMED: 36852806 (3) Dementia ICD Codes: F03.90 - Unspecified dementia without behavioral disturbance SNOMED: 79772907 (4) Parkinsons disease ICD Codes: G20 - Parkinson's disease SNOMED: 90041450 (5) FTT (failure to thrive) in adult ICD Codes: R62.7 - Adult failure to thrive SNOMED: 480496469 Assessment/Plan cxr reviewed CT chest ordered doubt bacterial pneumonia sputum induction CEA to look for occult malignancy, renal function better, dc iv fluids pt/ot reviewed DEYSI QUIROS Jul 12, 2017 18:31
--- NOTE | 2017-07-12 19:19 | Consultation ---
Consult Note Consult Note NEUROLOGY CONSULTATION: Full note dictated #[id number] 81 y/o, RH, CF with PH of memory problems that started ~ 4-5 years ago and have progressively worsened, a parkinsonian syndrome that started ~2-3 years ago and has progressively worsened, and GERD. She was hospitalized for FFT and a 20 lb weight loss in the last few months. ON EXAM: Oriented to self only. Problems with recent and remote memory. Parkinsonian syndrome with tremor, rigidity, bradykinesia, hypomimia, hypophonia, PS and PG. IMPRESSION: Poorly controlled PS. Dementia most probably AD. REC Continue present Rx. Change Sinemet 25/100 q 7AM-12 Noon-5 PM. In the future add Namenda to regimen. Keep physically and cognitively engaged. Let her eat whatever she likes. Complete w/u for memory loss. Yousif Snyder M.D., M.S.P.H. YOUSIF SNYDER Jul 12, 2017 19:19
[2017-07-12 20:00] VITALS: BP 153/95
[2017-07-12] MEDS: Heparin 5000 units/ml inj SUBQ SCH (21:51)
--- NOTE | 2017-07-12 22:45 | Consultation ---
DATE OF CONSULTATION: 07/12/2017 NEUROLOGY CONSULTATION CONSULTING PHYSICIAN: Ministerio Snyder M.D. REQUESTING PHYSICIAN: Juan Bar M.D. HISTORY: Ms. Elen Ely is an 81-year-old, right-handed, lady, who does have a past history of memory problems that started approximately 4 to 5 years ago and have progressively worsened, a Parkinson syndrome that started approximately 2 to 3 years ago and has also progressively worsened, and gastroesophageal reflux disease. She apparently lives in an assisted living facility and was noted there to have a progressively worsening appetite. As a result of that, she lost approximately 20 pounds in the last few months and was brought into the hospital for failure to thrive. She tells me that her appetite has worsened significantly and she does not feel like eating. There is no nausea. She has noticed that her memory has been failing and has noticed that this problem is getting progressively worse. She has also noticed that her Parkinsonian tremor has become much worse. Recently, her dose of Sinemet was changed from one tablet three times a day to one tablet twice a day. She has been on Aricept for quite some time now, but at one time, the Aricept was discontinued and then restarted. PAST MEDICAL HISTORY: Significant for cognitive decline, parkinsonian syndrome, and gastroesophageal reflux disease. FAMILY HISTORY: One of her maternal aunts had dementia and a parkinsonian syndrome. PERSONAL HISTORY: Home: She lives in an assisted living facility. 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 Habits: She used to smoke in the past, but stopped smoking numerous years ago. She consumes approximately 1 to 2 drinks in a month. She denies use of any illicit drugs. MEDICATIONS: Present medications include multivitamins, heparin for DVT prophylaxis, Aricept 10 mg daily, mirtazapine 15 mg at bedtime, Sinemet 25/100 mg taken twice a day, Tylenol p.r.n., morphine p.r.n., MiraLAX p.r.n., Zofran p.r.n., Ativan p.r.n., Ambien p.r.n. and Mylanta p.r.n. PHYSICAL EXAMINATION: GENERAL: She is a well-developed, lean lady, sitting up at the edge of her bed, in no acute distress. VITAL SIGNS: Pulse 86 per minute, blood pressure 136/73 mmHg, respirations 20 per minute, and temperature 98.2 degrees Fahrenheit. HEAD: Normocephalic and atraumatic. EENT: Examination benign. NECK: No neck rigidity was observed. NEUROLOGIC EXAMINATION: MENTAL STATUS EXAMINATION: She was awake and alert. She was oriented to self only. She had no idea where she was or what the date was. She was able to recall 3/3 words immediately, but could not remember any of them in 1 minute and 3 minutes even on the third trial. She was unable to tell me who the present President was and who prior presidents were even when multiple hints were given to her. Her mathematical skills were fairly good. Her visuospatial function was preserved. SPEECH: She had no dysarthria. LANGUAGE: She had a mild anomia for low-frequency words. CRANIAL NERVE EXAMINATION: II: The visual pérez were intact on confrontation testing. III, IV & : The external ocular movements were full and the pupils 3 mm in diameter, equal, round, regular, and reactive to light. V: She had normal facial sensations and the temporales, masseters, and pterygoids functioned normally. VII: She had normal facial expressions and no facial asymmetry. VIII: She was able to hear well bilaterally and had no nystagmus. IX: The palate moved symmetrically on phonation. X: She had no hoarseness of voice. XI: The sternocleidomastoids and trapezii functioned normally. XII: The tongue was in the midline without any fasciculations or atrophy. MOTOR SYSTEM: The tone was increased in all four extremities with cogwheel rigidity. Examination of muscle mass revealed generalized muscle wasting. Examination of power revealed G 5/5 power except for G 4+/5 power in the iliopsoas muscles bilaterally. SENSORY EXAMINATION: She had intact sensations to pinprick, light touch, and graphesthesia. COORDINATION: She performed well on [id number] and [id number] testing. REFLEXES: 1+ and bilaterally symmetrical at the biceps, triceps, brachioradialis, and knees, zero at both ankles. The plantar responses were flexor bilaterally. STANCE: She stood up with a stooped parkinsonian stance. GAIT: She walked with a parkinsonian gait. ABNORMAL MOVEMENTS: Tremor (4-5 Hz): G 3/4 in both upper extremities. Rigidity: G 1/4 in all four extremities. Bradykinesia: G 2/4. Hypomimia: G 2/4. Hypophonia: G 2/4. Parkinsonian stance: G 3/4. Parkinsonian gait: G 3/4. DIAGNOSTIC IMPRESSION: 1. Ms. Elen Ely is an 81-year-old, right-handed, lady, with a past history of memory problems, a parkinsonian syndrome and gastroesophageal reflux disease, who was hospitalized for failure to thrive and 20-pound weight loss. 2. On neurological examination at this time, she demonstrates significant problems with orientation, recent and remote memory, and a mild anomia. She also has weakness in the proximal lower extremity muscles, globally diminished deep tendon reflexes, and a significant parkinsonian syndrome characterized by tremor, rigidity, bradykinesia, hypomimia, hypophonia, parkinsonian stance, and parkinsonian gait. 3. Laboratory data obtained thus far have revealed that she is anemic with a hemoglobin of 11.9. Her chemistry panel revealed that she was mildly dehydrated with a BUN elevated to 20. Her albumin is down at 2.7. Her LDL cholesterol is 84 and her HDL cholesterol is 49. Her vitamin B12 level is greater than 2000. Her folate is normal at 14.3 and a TSH is normal at 2.70. Her urinalysis reveals 1+ leukocyte esterase, 0 to 2 red blood cells and 2 to 4 white blood cells per high-power field. 4. The patient's history and neurological examination are most compatible with an underlying significant cognitive decline with predominantly amnestic features compatible with dementia, most probably of the Alzheimer's type. 5. She also has a definite significant parkinsonian syndrome, which at this point in time is not well controlled. 6. She also has a significant decline in her appetite, this could be related to her dementing illness versus other reasons including a malignancy. RECOMMENDATIONS: 1. The patient and her daughter were given an explanation of the above-mentioned findings. 2. We shall try to improve her parkinsonian syndrome by increasing the dose of Sinemet to 25/100 mg to be taken at 7 a.m., 12 noon, and 5 p.m. 3. Aricept should be continued for her cognitive decline and in addition in the near future, Namenda should be added to a therapeutic regimen. 4. She was encouraged to stay both physically and cognitively engaged and active. 5. She should be allowed to eat whatever she likes so that she can put on a few more pounds. 6. She should be worked up thoroughly for other treatable causes of cognitive decline with in addition to the laboratory tests already done, an ESR, RPR, glycohemoglobin, Westergren sedimentation rate, arterial blood gas, and an ammonia level. 7. She should have a malignancy work-up. 8. She will be observed closely and depending on how she fairs over the next day or so, further recommendations will be given. Thank you for entrusting me with the care of Ms. Ely. I shall follow her with you. Ministerio Snyder M.D., M.S.P.H. DR: HOWIE JOB#: [id number] EYAL
[2017-07-13] VITALS: BP 127/88
[2017-07-13 04:27] VITALS: BP 132/86
[2017-07-13] MEDS: Levodopa/Carbidopa 25/100 tab ORAL SCH ×3 (06:51→17:57)
[2017-07-13 08:00] VITALS: BP 106/54
[2017-07-13] MEDS: Multivitamin w/Minerals tab ORAL SCH (08:46)
[2017-07-13] MEDS: Donepezil 10mg tab ORAL SCH (08:46)
[2017-07-13] MEDS: Heparin 5000 units/ml inj SUBQ SCH ×2 (08:47→22:58)
--- NOTE | 2017-07-13 11:41 | Diagnostic Imaging Report ---
Clinical Indication: Chest pain, abnormal chest radiograph Technique: Spiral acquisitions obtained through the chest. No IV contrast utilized, for referring physician request. Multiplanar reconstructions generated. Total dose length product 423.32 mGycm. CTDIvol(s) 11.9 mGy. Dose reduction achieved using automated exposure control Comparison: Reference made to chest radiograph dated 07/11/2017 Findings: Numerous irregular opacities are seen in both lungs, most numerous in the mid left upper lobe and superior left lower lobe. Some of these are spiculated, most notably a few lesions in the left lower lobe. The largest is in the right upper lobe, measures 14 mm diameter. There is some central bronchiectatic change. Peripheral bronchiectasis is also seen in the lateral inferior left lower lobe. The bronchiectasis is most striking in the areas of greatest nodularity. Confluent opacities with focal cystic spaces are seen in the anterior inferior right middle lobe and anterior inferior lingula some lesions in the lateral mid left upper lobe demonstrate central cavitation. The lungs are diffusely mildly hyperinflated, although no definite bullous changes are evident. No significant interstitial septal thickening. No focal airspace consolidation. No effusions. There is a small to moderate-sized sliding type hiatal hernia. There is a small anterior pericardial effusion. The heart size is normal. Prominent but not frankly enlarged mediastinal lymph nodes are noted. No axillary or chest wall mass or adenopathy. Included thyroid is unremarkable. The included upper abdominal anatomy is remarkable for numerous left renal parapelvic cysts. There are degenerative changes of the thoracic spine. Impression: Multiple bilateral nodular and irregular parenchymal opacities, as described above. Association with bronchiectasis suggests that to large extent these represent chronic postinflammatory lesions. However, some lesions, particularly in the right upper lobe and left lower lobe are more masslike in appearance. This raises concern for neoplasm, possibly multifocal. Note that some of the lesions also appear cavitary, although this appearance may be just due to fibrosis surrounding bronchiectatic bronchi Mild hyperinflation suggestive of COPD Small to moderate sliding-type hiatal hernia Small anterior pericardial effusion Incidental findings of left renal parapelvic cysts, degenerative spondylosis The CT scanner at [facility] is accredited by the [place] [employer] and the scans are performed using protocols designed to limit radiation exposure to as low as reasonably achievable to attain images of sufficient resolution adequate for diagnostic evaluation.
--- NOTE | 2017-07-13 11:55 | Neurology Progress Note ---
Interim History Interim History Interim History Ms. Ely feels better today. She is sitting up in a chair. She denies any new neurologic symptoms. She denies any nausea, weakness, numbness, problems with speech or language. She says she slept well last night. The appetite is minimally better. Review of Systems Neuro Review of Systems Benign. Objective Physical Exam Last Vital Signs Date Time Temp Pulse Resp B/P (MAP) Pulse Ox O2 Delivery O2 Flow Rate FiO2 07/13/17 08:00 97.7 63 18 106/54 96 Room Air Laboratory Tests Test 07/12/17 20:10 Erythrocyte Sedimentation Rate 45 MM/HR (0-42) H Hemoglobin A1c 5.5 % (4.3-6.0) Ammonia 13 umol/L (11-32) CA 125 Antigen Pending Rapid Plasma Reagin Pending Neurologic Exam Objective PHYSICAL EXAMINATION: GENERAL: She is a well-developed, lean lady, sitting up in a chair in no acute distress. HEAD: Normocephalic and atraumatic. EENT: Examination benign. NECK: No neck rigidity was observed. NEUROLOGIC EXAMINATION: MENTAL STATUS EXAMINATION: She was awake and alert. She was oriented to self and [facility] only. She had no idea of what the date was. She was able to recall 3/3 words immediately, but could not remember any of them in 1 minute and 3 minutes even on the third trial. She was unable to tell me who the present President was and who prior presidents were even when multiple hints were given to her. Her mathematical skills were fairly good. Her visuospatial function was preserved. SPEECH: She had no dysarthria. LANGUAGE: She had a mild anomia for low-frequency words. CRANIAL NERVE EXAMINATION: II: The visual pérez were intact on confrontation testing. III, IV & : The external ocular movements were full and the pupils 3 mm in diameter, equal, round, regular, and reactive to light. V: She had normal facial sensations and the temporales, masseters, and pterygoids functioned normally. VII: She had normal facial expressions and no facial asymmetry. VIII: She was able to hear well bilaterally and had no nystagmus. IX: The palate moved symmetrically on phonation. X: She had no hoarseness of voice. XI: The sternocleidomastoids and trapezii functioned normally. XII: The tongue was in the midline without any fasciculations or atrophy. MOTOR SYSTEM: The tone was increased in all four extremities with cogwheel rigidity. Examination of muscle mass revealed generalized muscle wasting. Examination of power revealed G 5/5 power except for G 4+/5 power in the iliopsoas muscles bilaterally. SENSORY EXAMINATION: She had intact sensations to pinprick, light touch, and graphesthesia. COORDINATION: She performed well on onqzkb-on-twcd and irnc-ab-rzrr testing. REFLEXES: 1+ and bilaterally symmetrical at the biceps, triceps, brachioradialis , and knees, zero at both ankles. The plantar responses were flexor bilaterally. STANCE: She stood up independently with a mildly stooped parkinsonian stance. GAIT: She walked with a moderately parkinsonian gait. ABNORMAL MOVEMENTS: Tremor (4-5 Hz): G 2/4 in both upper extremities. Rigidity: G Trace/4 in all four extremities. Bradykinesia: G 1/4. Hypomimia: G 1/4. Hypophonia: G 1/4. Parkinsonian stance: G 1/4. Parkinsonian gait: G 2/4. Impression/Recommendations Diagnostic Impression 1. Ms. Elen Ely is an 81-year-old, right-handed, lady, with a past history of memory problems, a parkinsonian syndrome and gastroesophageal reflux disease, who was hospitalized for failure to thrive and 20-pound weight loss. 2. She feels better today. She has been less parkinsonian and looks brighter. She denies any new neurologic symptoms. 3. On neurological examination at this time, she demonstrates significant problems with orientation, recent and remote memory, and a mild anomia. She also has weakness in the proximal lower extremity muscles, globally diminished deep tendon reflexes, and a parkinsonian syndrome characterized by tremor, rigidity, bradykinesia, hypomimia, hypophonia, parkinsonian stance, and parkinsonian gait - her parkinsonian signs are definitely better today.. 4. Laboratory data on my initial evaluation revealed that she was anemic with a hemoglobin of 11.9. Her chemistry panel revealed that she was mildly dehydrated with a BUN elevated to 20. Her albumin is down at 2.7. Her LDL cholesterol was 84 and her HDL cholesterol was 49. Her vitamin B12 level was greater than 2000. Her folate was normal at 14.3 and a TSH is normal at 2.70. Her urinalysis revealed 1+ leukocyte esterase, 0 to 2 red blood cells and 2 to 4 white blood cells per high-power field. 5. Further laboratory test ordered by me yesterday are still pending. 6. The patient's history and neurological examination are most compatible with an underlying significant cognitive decline with predominantly amnestic features compatible with dementia, most probably of the Alzheimer's type. 7. She also has a definite parkinsonian syndrome, which at this point in time is not optimally controlled. However her parkinsonian signs are definitely better than yesterday. 8. She also has a significant decline in her appetite, this could be related to her dementing illness versus other reasons including a malignancy. Recommendations 1. Continue present management. 2. Continue Sinemet to 25/100 mg to be taken at 7 a.m., 12 noon, and 5 p.m. 3. Continue Aricept and in addition in the near future, Namenda should be added to a therapeutic regimen. 4.Keep physically and cognitively engaged and active. 5. She should be allowed to eat whatever she likes so that she can put on a few more pounds. 6. Await laboratory tests and results of chest imaging. 7. She should have a malignancy work-up. 8. Observe. Yousif Snyder M.D., M.S.P.H. YOUSIF SNYDER Jul 13, 2017 11:55
[2017-07-13 12:00] VITALS: BP 133/67
[2017-07-13 16:00] VITALS: BP 120/71
--- NOTE | 2017-07-13 16:48 | Pulmonology Progress Note ---
Assessment/Plan Problems: (1) nodular infiltrate of lung (2) Weakness (3) Dementia (4) Parkinsons disease (5) FTT (failure to thrive) in adult Assessment/Plan ct reviewed, apparently the lesions are old. Pt had previous w/u in the past. d/c abx f/u speech pathologist recommendations consider comfort care. Subjective ROS Limited/Unobtainable: No Interval Events: comfortable, awake Allergies: Coded Allergies: DICLOFENAC (Verified Allergy, Unknown, 07/11/17) SULFA (SULFONAMIDE ANTIBIOTICS) (Verified Allergy, Unknown, 07/11/17) SULFAMETHOXAZOLE (Verified Allergy, Unknown, 07/11/17) TRIMETHOPRIM (Verified Allergy, Unknown, 07/11/17) Objective Last 24 Hour Vital Signs Date Time Temp Pulse Resp B/P (MAP) Pulse Ox O2 Delivery O2 Flow Rate FiO2 07/13/17 16:00 97.0 82 18 120/71 96 Room Air 07/13/17 12:00 97.5 94 18 133/67 96 Room Air 07/13/17 08:00 97.7 63 18 106/54 96 Room Air 07/13/17 04:27 97.0 79 20 132/86 93 Room Air 07/13/17 00:00 97.5 74 18 127/88 93 Room Air 07/12/17 20:00 97.8 86 18 153/95 94 Room Air Intake and Output 07/12/17 07/13/17 19:00 07:00 Intake Total 30 ml Balance 30 ml Intake Oral 30 ml Bladder Scan Volume Amount 0 # Voids 14 Objective General Appearance: cachetic Lines, tubes and drains: peripheral HEENT: normocephalic, atraumatic Neck: non-tender, normal alignment Respiratory/Chest: chest wall non-tender, lungs clear Breasts: no masses Cardiovascular/Chest: normal peripheral pulses Abdomen: normal bowel sounds, non tender Genitourinary/Rectal: normal genital exam, normal rectal exam Extremities: normal range of motion Skin Exam: normal pigmentation Microbiology Date/Time Source Procedure Growth Status 07/11/17 16:40 Blood Blood Culture - Preliminary NO GROWTH AFTER 24 HOURS Resulted 07/11/17 16:30 Blood Blood Culture - Preliminary NO GROWTH AFTER 24 HOURS Resulted 07/11/17 15:00 Nasal Nares MRSA Culture - Final NO METHICILLIN RESISTANT STAPH AUREUS... Complete 07/11/17 20:20 Urine,Clean Catch Urine Culture - Preliminary NO GROWTH Resulted 07/11/17 15:00 Rectum VRE Culture - Final NO VANCOMYCIN RESISTANT ENTEROCOCCUS ... Complete Laboratory Tests 07/12/17 20:10: Erythrocyte Sedimentation Rate 45H, Hemoglobin A1c 5.5, Ammonia 13, CA 125 Antigen [Pending], Rapid Plasma Reagin [Pending] 07/13/17 14:50: Arterial Blood pH 7.453H, Arterial Blood Partial Pressure CO2 36.0, Arterial Blood Partial Pressure O2 76.1, Arterial Blood HCO3 24.6, Arterial Blood Oxygen Saturation 94.7, Arterial Blood Base Excess 0.9, Bc Test Positive Current Medications Medications (Trade) Dose Ordered Sig/Mary Route PRN Reason Start Time Stop Time Status Last Admin Dose Admin Acetaminophen (Tylenol) 650 mg Q4H PRN ORAL fever 07/11/17 17:30 08/10/17 17:29 Al Hydroxide/Mg Hydroxide (Mylanta II) 30 ml Q6H PRN ORAL dyspepsia 07/11/17 17:30 08/10/17 17:29 Carbidopa/Levodopa (Sinemet 25/100) 1 tab THREE TIMES A DAY ORAL 07/13/17 18:00 08/12/17 17:59 Dextrose (Dextrose 50%) STAT PRN IV Hypoglycemia 07/11/17 17:30 08/10/17 17:29 Donepezil HCl (Aricept) 10 mg DAILY ORAL 07/12/17 09:00 08/11/17 08:59 07/13/17 08:46 Heparin Sodium (Porcine) (Heparin 5000 units/ml) 5,000 units EVERY 12 HOURS SUBQ 07/12/17 21:00 08/11/17 20:59 07/13/17 08:47 Lorazepam (Ativan 2mg/ml 1ml) 0.5 mg Q4H PRN IV For Anxiety 07/11/17 17:30 07/18/17 17:29 Mirtazapine (Remeron) 15 mg BEDTIME ORAL 07/11/17 21:00 08/10/17 20:59 07/12/17 21:50 Morphine Sulfate (Morphine Sulfate) 1 mg Q4H PRN IVP For Pain Scale 4-10 07/11/17 17:30 07/18/17 17:29 Multivitamins Therapeutic (Therapeutic Multivitamin) 1 ea DAILY ORAL 07/13/17 09:00 08/12/17 08:59 07/13/17 08:46 Ondansetron HCl (Zofran) 4 mg Q6H PRN IVP Nausea & Vomiting 07/11/17 17:30 08/10/17 17:29 Polyethylene Glycol (Miralax) 17 gm HSPRN PRN ORAL Constipation 07/11/17 17:30 08/10/17 17:29 Zolpidem Tartrate (Ambien) 5 mg HSPRN PRN ORAL Insomnia 07/11/17 17:30 07/18/17 17:29 07/11/17 23:45 DEYSI QUIROS Jul 13, 2017 16:48
[2017-07-13 20:00] VITALS: BP 117/69
--- NOTE | 2017-07-13 22:45 | General Progress Note ---
Assessment/Plan Problem List: (1) FTT (failure to thrive) in adult ICD Codes: R62.7 - Adult failure to thrive SNOMED: 283797689 (2) Severe bilateral hip osteoarthritis (3) Acute encephalopathy ICD Codes: G93.40 - Encephalopathy, unspecified SNOMED: 8389934 (4) Dementia ICD Codes: F03.90 - Unspecified dementia without behavioral disturbance SNOMED: 63345111 (5) Parkinsons disease ICD Codes: G20 - Parkinson's disease SNOMED: 80139435 (6) GERD (gastroesophageal reflux disease) ICD Codes: K21.9 - Gastro-esophageal reflux disease without esophagitis SNOMED: 675298436 (7) Severe protein-calorie malnutrition ICD Codes: E43 - Unspecified severe protein-calorie malnutrition SNOMED: 430447880 Status: stable Assessment/Plan Appreciate neurology rec's Sinemed dose increased to TID from BID Nutritional eval MVI daily started Ensure TID F/u calorie counts Trend lytes and replete. Monitor for refeeding syndrome Swallow eval--soft easy to chew, nectar thick liquids F/u Vit D level F/u urine cx Pulm consulted given findings on CXR CT chest reviewed. Daughter to bring in records from prior workup. Hold off on biopsy for now s/p Levaquin in ED PT/OT eval Pain control, bowel regimen Supportive care SW/CM consulted for dc b/ack to SNF DVT Prophylaxis: SCD, HSQ Code Status: DNR/DNI Hospital Classification Declaration: Based on this initial evaluation, and depending on the patient's clinical course, I anticipate that this patient will require hospitalization for 1-2 days for FTT, AMS, and close respiratory/ hemodynamic monitoring. Disposition: Once the patient is stable to leave the hospital, I anticipate the patient will likely be discharged to the following environment: SNF Discussed with patient/family, nursing staff, SW/CM, neuro, pulm regarding clinical status, treatment course, and disposition planning. D/w daughter extensively regarding plan of care Time of note may not reflect time of encounter. Subjective Date patient seen: Jul 13, 2017 Time patient seen: 14:00 ROS Limited/Unobtainable: No Constitutional: Reports: no symptoms, weakness HEENT: Reports: no symptoms Cardiovascular: Reports: no symptoms Respiratory: Reports: no symptoms Gastrointestinal/Abdominal: Reports: no symptoms Genitourinary: Reports: no symptoms Neurologic/Psychiatric: Reports: no symptoms Endocrine: Reports: no symptoms Hematologic/Lymphatic: Reports: no symptoms Allergies: Coded Allergies: DICLOFENAC (Verified Allergy, Unknown, 07/11/17) SULFA (SULFONAMIDE ANTIBIOTICS) (Verified Allergy, Unknown, 07/11/17) SULFAMETHOXAZOLE (Verified Allergy, Unknown, 07/11/17) TRIMETHOPRIM (Verified Allergy, Unknown, 07/11/17) Subjective No acute o/n events CT chest shows concern for pulmonary nodules, possible malignancy. D/w daughter who states similar findings found abt 5 years ago and workup was neg for malignancy. She will attempt to obtain records Pt more awake, alert. Working w/ PT. Appetite slightly better. Objective Last 24 Hour Vital Signs Date Time Temp Pulse Resp B/P (MAP) Pulse Ox O2 Delivery O2 Flow Rate FiO2 07/13/17 20:00 97.5 84 18 117/69 96 07/13/17 16:00 97.0 82 18 120/71 96 Room Air 07/13/17 12:00 97.5 94 18 133/67 96 Room Air 07/13/17 08:00 97.7 63 18 106/54 96 Room Air 07/13/17 04:27 97.0 79 20 132/86 93 Room Air 07/13/17 00:00 97.5 74 18 127/88 93 Room Air Intake and Output 07/12/17 07/13/17 19:00 07:00 Intake Total 30 ml Balance 30 ml Intake Oral 30 ml Bladder Scan Volume Amount 0 # Voids 14 Laboratory Tests 07/13/17 14:50: Arterial Blood pH 7.453H, Arterial Blood Partial Pressure CO2 36.0, Arterial Blood Partial Pressure O2 76.1, Arterial Blood HCO3 24.6, Arterial Blood Oxygen Saturation 94.7, Arterial Blood Base Excess 0.9, Bc Test Positive Height (Feet): 5 Height (Inches): 4.00 Weight (Pounds): 102 Objective General: alert, cooperative, no distress, appears stated age, thin Head: normocephalic, without obvious abnormality, atraumatic Eyes: conjunctivae/corneas clear. PERRL, EOM's intact Throat: lips, mucosa, and tongue normal. MMM Neck: supple, symmetrical, trachea midline, and no JVD Lungs: clear to auscultation bilaterally Heart: regular rate and rhythm, S1, S2 normal, no murmur, click, rub or gallop Abdomen: soft, non-tender, non-distended, bowel sounds normal Extremities: extremities normal, atraumatic, no cyanosis or edema Pulses: 2+ and symmetric Skin: skin color, texture, turgor normal; no rashes or lesions Neurologic: grossly normal, no focal deficits, +resting tremor b/l Juan Bar M.D. Jul 13, 2017 22:44
[2017-07-14 04:00] VITALS: BP 144/72
[2017-07-14 06:30] LABS: BASOPHILS % (AUTO) 0.5 % (0.0-2.0); EOSINOPHILS % (AUTO) 2.8 % (0.0-3.0); HEMATOCRIT 37.6 % (37.0-47.0); LYMPHOCYTES % (AUTO) 14.3 % (20.0-45.0); MEAN CORPUSCULAR VOLUME 96 FL (80-99); MONOCYTES % (AUTO) 8.1 % (1.0-10.0); NEUTROPHILS % (AUTO) 74.3 % (45.0-75.0); PLATELET COUNT 450 K/UL (150-450); RED CELL DISTRIBUTION WIDTH 12.9 % (11.6-14.8); WHITE BLOOD COUNT 8.3 K/UL (4.8-10.8)
[2017-07-14 07:20] LABS: ANION GAP 9 mmol/L (5-15); BLOOD UREA NITROGEN 15 mg/dL (7-18); CALCIUM 8.9 MG/DL (8.5-10.1); CARBON DIOXIDE 28 MMOL/L (21-32); CHLORIDE 105 MMOL/L (98-107); CREATININE 0.7 MG/DL (0.55-1.30); PHOSPHORUS 3.5 MG/DL (2.5-4.9); POTASSIUM 3.7 MMOL/L (3.5-5.1); SODIUM 142 MMOL/L (136-145)
[2017-07-14 07:52] VITALS: BP 118/55
[2017-07-14] MEDS: Donepezil 10mg tab ORAL SCH (08:27)
[2017-07-14] MEDS: Levodopa/Carbidopa 25/100 tab ORAL SCH ×3 (08:27→17:20)
[2017-07-14] MEDS: Multivitamin w/Minerals tab ORAL SCH (08:27)
[2017-07-14] MEDS: Heparin 5000 units/ml inj SUBQ SCH ×2 (08:29→20:30)
[2017-07-14 11:40] VITALS: BP 120/61
--- NOTE | 2017-07-14 15:09 | Neurology Progress Note ---
Interim History Interim History Interim History Ms. Ely feels better. She was in bed when I went to see her. She has not been given her afternoon dose of Sinemet yet. She denies any new neurologic symptoms. She denies any nausea, weakness, numbness, problems with speech or language. She says she slept well last night. The appetite is better. Review of Systems Neuro Review of Systems Benign. Objective Physical Exam Last Vital Signs Date Time Temp Pulse Resp B/P (MAP) Pulse Ox O2 Delivery O2 Flow Rate FiO2 07/14/17 13:09 Room Air 07/14/17 11:40 97.9 83 20 120/61 95 Laboratory Tests Test 07/14/17 03:20 White Blood Count 8.3 K/UL (4.8-10.8) Red Blood Count 3.90 M/UL (4.20-5.40) L Hemoglobin 12.0 G/DL (12.0-16.0) Hematocrit 37.6 % (37.0-47.0) Mean Corpuscular Volume 96 FL (80-99) Mean Corpuscular Hemoglobin 30.7 PG (27.0-31.0) Mean Corpuscular Hemoglobin Concent 31.8 G/DL (32.0-36.0) L Red Cell Distribution Width 12.9 % (11.6-14.8) Platelet Count 450 K/UL (150-450) Mean Platelet Volume 5.8 FL (6.5-10.1) L Neutrophils (%) (Auto) 74.3 % (45.0-75.0) Lymphocytes (%) (Auto) 14.3 % (20.0-45.0) L Monocytes (%) (Auto) 8.1 % (1.0-10.0) Eosinophils (%) (Auto) 2.8 % (0.0-3.0) Basophils (%) (Auto) 0.5 % (0.0-2.0) Sodium Level 142 MMOL/L (136-145) Potassium Level 3.7 MMOL/L (3.5-5.1) Chloride Level 105 MMOL/L (98-107) Carbon Dioxide Level 28 MMOL/L (21-32) Anion Gap 9 mmol/L (5-15) Blood Urea Nitrogen 15 mg/dL (7-18) Creatinine 0.7 MG/DL (0.55-1.30) Estimat Glomerular Filtration Rate mL/min (>60) Glucose Level 79 MG/DL (74-106) Calcium Level 8.9 MG/DL (8.5-10.1) Phosphorus Level 3.5 MG/DL (2.5-4.9) Magnesium Level 2.0 MG/DL (1.8-2.4) Neurologic Exam Objective PHYSICAL EXAMINATION: GENERAL: She is a well-developed, lean lady, sitting up in a chair in no acute distress. HEAD: Normocephalic and atraumatic. EENT: Examination benign. NECK: No neck rigidity was observed. NEUROLOGIC EXAMINATION: MENTAL STATUS EXAMINATION: She was awake and alert. She was oriented to self only. She had no idea of what the date or place was. She was able to recall 3/3 words immediately, but could not remember any of them in 1 minute and 3 minutes even on the third trial. She was unable to tell me who the present President was and who prior presidents were even when multiple hints were given to her. Her mathematical skills were fairly good. Her visuospatial function was preserved. SPEECH: She had no dysarthria. LANGUAGE: She had a mild anomia for low-frequency words. CRANIAL NERVE EXAMINATION: II: The visual pérez were intact on confrontation testing. III, IV & : The external ocular movements were full and the pupils 3 mm in diameter, equal, round, regular, and reactive to light. V: She had normal facial sensations and the temporales, masseters, and pterygoids functioned normally. VII: She had normal facial expressions and no facial asymmetry. VIII: She was able to hear well bilaterally and had no nystagmus. IX: The palate moved symmetrically on phonation. X: She had no hoarseness of voice. XI: The sternocleidomastoids and trapezii functioned normally. XII: The tongue was in the midline without any fasciculations or atrophy. MOTOR SYSTEM: The tone was increased in all four extremities with cogwheel rigidity. Examination of muscle mass revealed generalized muscle wasting. Examination of power revealed G 5/5 power except for G 4+/5 power in the iliopsoas muscles bilaterally. SENSORY EXAMINATION: She had intact sensations to pinprick, light touch, and graphesthesia. COORDINATION: She performed well on utlumj-yd-liby and [id number]-xf-[id number] testing. REFLEXES: 1+ and bilaterally symmetrical at the biceps, triceps, brachioradialis , and knees, zero at both ankles. The plantar responses were flexor bilaterally. STANCE: She stood up independently with a mildly stooped parkinsonian stance. GAIT: She walked with a moderately parkinsonian gait. ABNORMAL MOVEMENTS: Tremor (4-5 Hz): G 2/4 in both upper extremities. Rigidity: G 1/4 in all four extremities. Bradykinesia: G 1/4. Hypomimia: G 1/4. Hypophonia: G 1/4. Parkinsonian stance: G 1/4. Parkinsonian gait: G 2/4. Impression/Recommendations Diagnostic Impression 1. Ms. Elen Ely is an 81-year-old, right-handed, lady, with a past history of memory problems, a parkinsonian syndrome and gastroesophageal reflux disease, who was hospitalized for failure to thrive and 20-pound weight loss. 2. She feels better. She continues to be less parkinsonian and looks brighter. She denies any new neurologic symptoms. 3. On neurological examination at this time, she demonstrates significant problems with orientation, recent and remote memory, and a mild anomia. She also has weakness in the proximal lower extremity muscles, globally diminished deep tendon reflexes, and a parkinsonian syndrome characterized by tremor, rigidity, bradykinesia, hypomimia, hypophonia, parkinsonian stance, and parkinsonian gait - her parkinsonian signs are definitely better than when I saw her initially but a little worse than yesterday - most probabaly due to net getting her afternoon Sinemet. 4. Laboratory data on my initial evaluation revealed that she was anemic with a hemoglobin of 11.9. Her chemistry panel revealed that she was mildly dehydrated with a BUN elevated to 20. Her albumin is down at 2.7. Her LDL cholesterol was 84 and her HDL cholesterol was 49. Her vitamin B12 level was greater than 2000. Her folate was normal at 14.3 and a TSH is normal at 2.70. Her urinalysis revealed 1+ leukocyte esterase, 0 to 2 red blood cells and 2 to 4 white blood cells per high-power field. 5. Further laboratory test ordered by me yesterday are still pending. 6. The patient's history and neurological examination are most compatible with an underlying significant cognitive decline with predominantly amnestic features compatible with dementia, most probably of the Alzheimer's type. 7. She also has a definite parkinsonian syndrome, which at this point in time is not optimally controlled. However her parkinsonian signs are definitely better than yesterday. 8. She also has a significant decline in her appetite, this could be related to her dementing illness versus other reasons including a malignancy. Recommendations 1. Continue present management. 2. Continue Sinemet to 25/100 mg to be taken at 7 a.m., 12 noon, and 5 p.m. 3. Continue Aricept and in addition in the near future, Namenda should be added to a therapeutic regimen. 4. Keep physically and cognitively engaged and active. 5. She should be allowed to eat whatever she likes so that she can put on a few more pounds. 6. Work-up of chest lesions as per Dr. Erickson. 7. Observe. Yousif Pimentel M.D., M.S.P.H. YOUSIF PIMENTEL Jul 14, 2017 15:09
[2017-07-14] MEDS ORDERED: NS 500ML ONE (15:10)
--- NOTE | 2017-07-14 15:43 | Pulmonology Progress Note ---
Assessment/Plan Problems: (1) nodular infiltrate of lung (2) Weakness (3) Dementia (4) Parkinsons disease (5) FTT (failure to thrive) in adult Assessment/Plan ct reviewed, apparently the lesions are old. Pt had previous w/u in the past. d/c abx f/u speech pathologist recommendations dc planning in progress. consider comfort care. Subjective ROS Limited/Unobtainable: No Interval Events: d/w daugther, they don't want any ivasive testing of the kylie nodule Allergies: Coded Allergies: DICLOFENAC (Verified Allergy, Unknown, 07/11/17) SULFA (SULFONAMIDE ANTIBIOTICS) (Verified Allergy, Unknown, 07/11/17) SULFAMETHOXAZOLE (Verified Allergy, Unknown, 07/11/17) TRIMETHOPRIM (Verified Allergy, Unknown, 07/11/17) Objective Last 24 Hour Vital Signs Date Time Temp Pulse Resp B/P (MAP) Pulse Ox O2 Delivery O2 Flow Rate FiO2 07/14/17 13:09 Room Air 07/14/17 11:40 97.9 83 20 120/61 95 07/14/17 08:36 Room Air 07/14/17 07:52 98.2 79 20 118/55 95 07/14/17 04:00 Room Air 07/14/17 04:00 97.9 82 18 144/72 95 Room Air 07/14/17 00:00 Room Air 07/13/17 20:00 Room Air 07/13/17 20:00 97.5 84 18 117/69 96 07/13/17 16:00 97.0 82 18 120/71 96 Room Air Intake and Output 07/13/17 07/14/17 19:00 07:00 Intake Total 180 ml Balance 180 ml Intake Oral 180 ml # Voids 2 3 Objective General Appearance: cachetic Lines, tubes and drains: peripheral HEENT: normocephalic, atraumatic Neck: non-tender, normal alignment Respiratory/Chest: chest wall non-tender, lungs clear Breasts: no masses Cardiovascular/Chest: normal peripheral pulses Abdomen: normal bowel sounds, non tender Genitourinary/Rectal: normal genital exam, normal rectal exam Extremities: normal range of motion Skin Exam: normal pigmentation Microbiology Date/Time Source Procedure Growth Status 07/11/17 16:40 Blood Blood Culture - Preliminary NO GROWTH AFTER 48 HOURS Resulted 07/11/17 16:30 Blood Blood Culture - Preliminary NO GROWTH AFTER 48 HOURS Resulted 07/11/17 20:20 Urine,Clean Catch Urine Culture - Preliminary NO GROWTH AFTER 24 HOURS Resulted Laboratory Tests 07/14/17 03:20: White Blood Count 8.3, Red Blood Count 3.90L, Hemoglobin 12.0, Hematocrit 37.6, Mean Corpuscular Volume 96, Mean Corpuscular Hemoglobin 30.7, Mean Corpuscular Hemoglobin Concent 31.8L, Red Cell Distribution Width 12.9, Platelet Count 450, Mean Platelet Volume 5.8L, Neutrophils (%) (Auto) 74.3, Lymphocytes (%) (Auto) 14.3L, Monocytes (%) (Auto) 8.1, Eosinophils (%) (Auto) 2.8, Basophils (%) (Auto ) 0.5, Sodium Level 142, Potassium Level 3.7, Chloride Level 105, Carbon Dioxide Level 28, Anion Gap 9, Blood Urea Nitrogen 15, Creatinine 0.7, Estimat Glomerular Filtration Rate , Glucose Level 79, Calcium Level 8.9, Phosphorus Level 3.5, Magnesium Level 2.0 Current Medications Medications (Trade) Dose Ordered Sig/Mary Route PRN Reason Start Time Stop Time Status Last Admin Dose Admin Acetaminophen (Tylenol) 650 mg Q4H PRN ORAL fever 07/11/17 17:30 08/10/17 17:29 Al Hydroxide/Mg Hydroxide (Mylanta II) 30 ml Q6H PRN ORAL dyspepsia 07/11/17 17:30 08/10/17 17:29 Carbidopa/Levodopa (Sinemet 25/100) 1 tab THREE TIMES A DAY ORAL 07/13/17 18:00 08/12/17 17:59 07/14/17 08:27 Dextrose (Dextrose 50%) STAT PRN IV Hypoglycemia 07/11/17 17:30 08/10/17 17:29 Donepezil HCl (Aricept) 10 mg DAILY ORAL 07/12/17 09:00 08/11/17 08:59 07/14/17 08:27 Heparin Sodium (Porcine) (Heparin 5000 units/ml) 5,000 units EVERY 12 HOURS SUBQ 07/12/17 21:00 08/11/17 20:59 07/14/17 08:29 Lorazepam (Ativan 2mg/ml 1ml) 0.5 mg Q4H PRN IV For Anxiety 07/11/17 17:30 07/18/17 17:29 Mirtazapine (Remeron) 15 mg BEDTIME ORAL 07/11/17 21:00 08/10/17 20:59 07/13/17 20:41 Morphine Sulfate (Morphine Sulfate) 1 mg Q4H PRN IVP For Pain Scale 4-10 07/11/17 17:30 07/18/17 17:29 Multivitamins Therapeutic (Therapeutic Multivitamin) 1 ea DAILY ORAL 07/13/17 09:00 08/12/17 08:59 07/14/17 08:27 Ondansetron HCl (Zofran) 4 mg Q6H PRN IVP Nausea & Vomiting 07/11/17 17:30 08/10/17 17:29 Polyethylene Glycol (Miralax) 17 gm HSPRN PRN ORAL Constipation 07/11/17 17:30 08/10/17 17:29 Zolpidem Tartrate (Ambien) 5 mg HSPRN PRN ORAL Insomnia 07/11/17 17:30 07/18/17 17:29 07/11/17 23:45 DEYSI QUIROS Jul 14, 2017 15:43
[2017-07-14 15:59] VITALS: BP 116/64
--- NOTE | 2017-07-14 16:08 | General Progress Note ---
Assessment/Plan Problem List: (1) FTT (failure to thrive) in adult ICD Codes: R62.7 - Adult failure to thrive SNOMED: 785205686 (2) Severe bilateral hip osteoarthritis (3) Acute encephalopathy ICD Codes: G93.40 - Encephalopathy, unspecified SNOMED: 8824459 (4) Dementia ICD Codes: F03.90 - Unspecified dementia without behavioral disturbance SNOMED: 66119688 (5) Parkinsons disease ICD Codes: G20 - Parkinson's disease SNOMED: 67490014 (6) GERD (gastroesophageal reflux disease) ICD Codes: K21.9 - Gastro-esophageal reflux disease without esophagitis SNOMED: 029196993 (7) Severe protein-calorie malnutrition ICD Codes: E43 - Unspecified severe protein-calorie malnutrition SNOMED: 978092561 Status: stable Assessment/Plan Sinemet dose increased to TID from BID per neuro Nutritional eval MVI daily started Ensure TID F/u calorie counts Trend lytes and replete. Monitor for refeeding syndrome Swallow eval--soft easy to chew, nectar thick liquids F/u Vit D level F/u urine cx--ngtd Pulm consulted given findings on CXR CT chest reviewed. Daughter brought in records from prior workup of lungs findings. Pt had PET done which was neg for malignancy at the time. Hold off on biopsy for now per pulm s/p Elroy in ED PT/OT eval Pain control, bowel regimen Supportive care SW/CM consulted for dc b/ack to SNF, likely in AM DVT Prophylaxis: SCD, HSQ Code Status: DNR/DNI Hospital Classification Declaration: Based on this initial evaluation, and depending on the patient's clinical course, I anticipate that this patient will require hospitalization for 1-2 days for FTT, AMS, and close respiratory/ hemodynamic monitoring. Disposition: Once the patient is stable to leave the hospital, I anticipate the patient will likely be discharged to the following environment: SNF Discussed with patient/family, nursing staff, SW/CM, neuro, pulm regarding clinical status, treatment course, and disposition planning. D/w daughter extensively regarding plan of care Time of note may not reflect time of encounter. Subjective Date patient seen: Jul 14, 2017 Time patient seen: 16:08 ROS Limited/Unobtainable: No Constitutional: Reports: weakness HEENT: Reports: no symptoms Cardiovascular: Reports: no symptoms Respiratory: Reports: no symptoms Gastrointestinal/Abdominal: Reports: no symptoms Genitourinary: Reports: no symptoms Neurologic/Psychiatric: Reports: no symptoms Endocrine: Reports: no symptoms Hematologic/Lymphatic: Reports: no symptoms Allergies: Coded Allergies: DICLOFENAC (Verified Allergy, Unknown, 07/11/17) SULFA (SULFONAMIDE ANTIBIOTICS) (Verified Allergy, Unknown, 07/11/17) SULFAMETHOXAZOLE (Verified Allergy, Unknown, 07/11/17) TRIMETHOPRIM (Verified Allergy, Unknown, 07/11/17) All Systems: reviewed and negative except above Subjective No acute o/n events Daughter brought in records of prior workup of abnormal lung findings. Pt had PET/CT which was neg for malignancy at the time. Per pulm, no further workup needed at this time. Tremors improved. Working w/ PT. Appetite improving. Objective Last 24 Hour Vital Signs Date Time Temp Pulse Resp B/P (MAP) Pulse Ox O2 Delivery O2 Flow Rate FiO2 07/14/17 15:59 98.1 84 20 116/64 95 07/14/17 13:09 Room Air 07/14/17 11:40 97.9 83 20 120/61 95 07/14/17 08:36 Room Air 07/14/17 07:52 98.2 79 20 118/55 95 07/14/17 04:00 Room Air 07/14/17 04:00 97.9 82 18 144/72 95 Room Air 07/14/17 00:00 Room Air 07/13/17 20:00 Room Air 07/13/17 20:00 97.5 84 18 117/69 96 Intake and Output 07/13/17 07/14/17 19:00 07:00 Intake Total 180 ml Balance 180 ml Intake Oral 180 ml # Voids 2 3 Laboratory Tests 07/14/17 03:20: White Blood Count 8.3, Red Blood Count 3.90L, Hemoglobin 12.0, Hematocrit 37.6, Mean Corpuscular Volume 96, Mean Corpuscular Hemoglobin 30.7, Mean Corpuscular Hemoglobin Concent 31.8L, Red Cell Distribution Width 12.9, Platelet Count 450, Mean Platelet Volume 5.8L, Neutrophils (%) (Auto) 74.3, Lymphocytes (%) (Auto) 14.3L, Monocytes (%) (Auto) 8.1, Eosinophils (%) (Auto) 2.8, Basophils (%) (Auto ) 0.5, Sodium Level 142, Potassium Level 3.7, Chloride Level 105, Carbon Dioxide Level 28, Anion Gap 9, Blood Urea Nitrogen 15, Creatinine 0.7, Estimat Glomerular Filtration Rate , Glucose Level 79, Calcium Level 8.9, Phosphorus Level 3.5, Magnesium Level 2.0 Height (Feet): 5 Height (Inches): 4.00 Weight (Pounds): 102 Objective General: alert, cooperative, no distress, appears stated age, thin Head: normocephalic, without obvious abnormality, atraumatic Eyes: conjunctivae/corneas clear. PERRL, EOM's intact Throat: lips, mucosa, and tongue normal. MMM Neck: supple, symmetrical, trachea midline, and no JVD Lungs: clear to auscultation bilaterally Heart: regular rate and rhythm, S1, S2 normal, no murmur, click, rub or gallop Abdomen: soft, non-tender, non-distended, bowel sounds normal Extremities: extremities normal, atraumatic, no cyanosis or edema Pulses: 2+ and symmetric Skin: skin color, texture, turgor normal; no rashes or lesions Neurologic: grossly normal, no focal deficits, +resting tremor b/l Juan Bar M.D. Jul 14, 2017 16:08
[2017-07-14 20:00] VITALS: BP 130/67
[2017-07-15] VITALS: BP 126/69
[2017-07-15 04:00] VITALS: BP 128/72
[2017-07-15] MEDS: Levodopa/Carbidopa 25/100 tab ORAL SCH ×2 (06:22→08:28)
[2017-07-15 07:50] VITALS: BP 103/53
[2017-07-15] MEDS: Donepezil 10mg tab ORAL SCH (08:28)
[2017-07-15] MEDS: Multivitamin w/Minerals tab ORAL SCH (08:28)
[2017-07-15] MEDS: Heparin 5000 units/ml inj SUBQ SCH (08:29)
[2017-07-15] MEDS ORDERED: SINEMET 25/1001 EA ORAL (08:43)
--- NOTE | 2017-07-15 09:56 | Pulmonology Progress Note ---
Assessment/Plan Problems: (1) nodular infiltrate of lung (2) Weakness (3) Dementia (4) Parkinsons disease (5) FTT (failure to thrive) in adult Assessment/Plan no new complains dc today to shelter diet as tolerated d/c abx f/u speech pathologist recommendations dc planning in progress. consider comfort care. Subjective ROS Limited/Unobtainable: No Allergies: Coded Allergies: DICLOFENAC (Verified Allergy, Unknown, 07/11/17) SULFA (SULFONAMIDE ANTIBIOTICS) (Verified Allergy, Unknown, 07/11/17) SULFAMETHOXAZOLE (Verified Allergy, Unknown, 07/11/17) TRIMETHOPRIM (Verified Allergy, Unknown, 07/11/17) Objective Last 24 Hour Vital Signs Date Time Temp Pulse Resp B/P (MAP) Pulse Ox O2 Delivery O2 Flow Rate FiO2 07/15/17 07:50 97.7 78 18 103/53 96 Room Air 07/15/17 04:00 98.1 79 20 128/72 94 Room Air 07/15/17 00:00 98.1 79 18 126/69 95 Room Air 07/14/17 20:00 97.9 78 20 130/67 94 Room Air 07/14/17 18:21 98.1 07/14/17 16:23 Room Air 07/14/17 15:59 98.1 84 20 116/64 95 07/14/17 13:09 Room Air 07/14/17 11:40 97.9 83 20 120/61 95 Intake and Output 07/14/17 07/15/17 19:00 07:00 Intake Total 480 ml 180 ml Balance 480 ml 180 ml Intake Oral 480 ml 180 ml Bladder Scan Volume Amount 31-50 ml # Voids 4 5 # Bowel Movements 1 Objective General Appearance: cachetic Lines, tubes and drains: peripheral HEENT: normocephalic, atraumatic Neck: non-tender, normal alignment Respiratory/Chest: chest wall non-tender, lungs clear Breasts: no masses Cardiovascular/Chest: normal peripheral pulses Abdomen: normal bowel sounds, non tender Genitourinary/Rectal: normal genital exam, normal rectal exam Extremities: normal range of motion Skin Exam: normal pigmentation Current Medications Medications (Trade) Dose Ordered Sig/Mary Route PRN Reason Start Time Stop Time Status Last Admin Dose Admin Acetaminophen (Tylenol) 650 mg Q4H PRN ORAL Mild Pain/Temp > 100.5 07/14/17 17:30 08/13/17 17:29 07/14/17 17:22 Al Hydroxide/Mg Hydroxide (Mylanta II) 30 ml Q6H PRN ORAL dyspepsia 07/11/17 17:30 08/10/17 17:29 Carbidopa/Levodopa (Sinemet 25/100) 1 tab THREE TIMES A DAY ORAL 07/13/17 18:00 08/12/17 17:59 07/15/17 08:28 Dextrose (Dextrose 50%) STAT PRN IV Hypoglycemia 07/11/17 17:30 08/10/17 17:29 Donepezil HCl (Aricept) 10 mg DAILY ORAL 07/12/17 09:00 08/11/17 08:59 07/15/17 08:28 Heparin Sodium (Porcine) (Heparin 5000 units/ml) 5,000 units EVERY 12 HOURS SUBQ 07/12/17 21:00 08/11/17 20:59 07/15/17 08:29 Lorazepam (Ativan 2mg/ml 1ml) 0.5 mg Q4H PRN IV For Anxiety 07/11/17 17:30 07/18/17 17:29 Mirtazapine (Remeron) 15 mg BEDTIME ORAL 07/11/17 21:00 08/10/17 20:59 07/14/17 20:27 Morphine Sulfate (Morphine Sulfate) 1 mg Q4H PRN IVP For Pain Scale 4-10 07/11/17 17:30 07/18/17 17:29 Multivitamins Therapeutic (Therapeutic Multivitamin) 1 ea DAILY ORAL 07/13/17 09:00 08/12/17 08:59 07/15/17 08:28 Ondansetron HCl (Zofran) 4 mg Q6H PRN IVP Nausea & Vomiting 07/11/17 17:30 08/10/17 17:29 Polyethylene Glycol (Miralax) 17 gm HSPRN PRN ORAL Constipation 07/11/17 17:30 08/10/17 17:29 Zolpidem Tartrate (Ambien) 5 mg HSPRN PRN ORAL Insomnia 07/11/17 17:30 07/18/17 17:29 07/11/17 23:45 DEYSI QURIOS Jul 15, 2017 09:55
[2017-07-15 11:45] VITALS: BP 120/65
[2017-07-15] MEDS ORDERED: D5NS 1000ml IV ONE (13:39)
--- NOTE | 2017-07-15 13:53 | Discharge Summary ---
Discharge Summary Hospital Course Date of Admission Jul 11, 2017 at 15:40 Date of Discharge 07/19/17 Admitting Diagnosis weakness,failure to thrive HPI 81y/o female with pm of Parkinson's disease, dementia, GERD who presents with generalized weakness, weight loss and severe b/l hip pain. Daughter at bedside states that patient has been increasingly weak and has been losing weight. Pt has lost over 20 pounds. Pt notes poor appetite. Patient resides in an [place]. Daughter states patient also has increased R>L hip pain for last 1 year. Had x- rays which were negative but patient continues to have pain with walking. Because of the pain pt has not been doing much activity. Patient denies any pain at this time because she is resting. Daughter also notes pt has been more confused lately. Denies f/c, n/v, d/c, chest pain, SOB, cough, abd pain, dysuria. Pt was recently seen by her neurologist a few weeks ago and her Sinemet dose was reduced from TID to BID given lethargy/weakness. In ED, CXR w/ concern for infiltrate, given Levaquin. Consultations Pulmonology, Neurology Hospital Course Pt was admitted and underwent workup for failure to thrive including malignancy workup given weight loss. CT chest showed possible concern for malignancy; however daughter obtained records from prior similar findings including workup such as PET which was negative for malignancy at the time. Therefore, decision was made to hold off on biopsy for now per pulm. Pt also wished for DNR/DNI. Pt' s nutrition was optimized with help of customer experience strategist. Neurology increased pt's sinemt dose for better control of tremors. Pt was also started on physical therapy which she tolerated well. Prior to discharge, pt was HD stable, tolerating PO and ambulating w/ FWW. Discharge physical exam: General: alert, cooperative, no distress, appears stated age, thin Head: normocephalic, without obvious abnormality, atraumatic Eyes: conjunctivae/corneas clear. PERRL, EOM's intact Throat: lips, mucosa, and tongue normal. MMM Neck: supple, symmetrical, trachea midline, and no JVD Lungs: clear to auscultation bilaterally Heart: regular rate and rhythm, S1, S2 normal, no murmur, click, rub or gallop Abdomen: soft, non-tender, non-distended, bowel sounds normal Extremities: extremities normal, atraumatic, no cyanosis or edema Pulses: 2+ and symmetric Skin: skin color, texture, turgor normal; no rashes or lesions Neurologic: grossly normal, no focal deficits, +resting tremor b/l--improved Discharge diagnoses: (1) FTT (failure to thrive) in adult ICD Codes: R62.7 - Adult failure to thrive SNOMED: 535119092 (2) Severe bilateral hip osteoarthritis (3) Acute encephalopathy ICD Codes: G93.40 - Encephalopathy, unspecified SNOMED: 9480625 (4) Dementia ICD Codes: F03.90 - Unspecified dementia without behavioral disturbance SNOMED: 15714265 (5) Parkinsons disease ICD Codes: G20 - Parkinson's disease SNOMED: 14094580 (6) GERD (gastroesophageal reflux disease) ICD Codes: K21.9 - Gastro-esophageal reflux disease without esophagitis SNOMED: 253085639 (7) Severe protein-calorie malnutrition ICD Codes: E43 - Unspecified severe protein-calorie malnutrition Discharge Medications New Medications: Levodopa/Carbidopa (Carbidopa-Levodopa 25-100 Tab) 1 Each Tablet 1 TAB ORAL THREE TIMES A DAY for 90 Days, #180 TAB given 30min prior to meals Continued Medications: Ascorbic Acid* (Vitamin C*) 500 Mg Tablet 500 MG ORAL DAILY, #30 TAB 0 Refills Aspirin (Aspirin EC) 81 Mg Tablet.dr 81 MG ORAL DAILY, TAB Calcium Carbonate (Calcium) 500 Mg Tablet 500 MG PO DAILY, TAB Cholecalciferol (Vitamin D3)* (Vitamin D*) 1,000 Unit Tablet 1000 UNIT ORAL DAILY, #30 TAB Cranberry (Cranberry) 400 Mg Capsule 400 MG PO BEDTIME, CAP Cyanocobalamin (Vitamin B-12) (Vitamin B12) 2,500 Mcg Tablet 2500 MCG PO DAILY, TAB Donepezil Hcl* (Donepezil Hcl*) 10 Mg Tab.rapdis 10 MG ORAL HS, TAB Loperamide HCl (Imodium A-D) 2 Mg Capsule 2 MG PO EVERY 6 HOURS PRN for Diarrhea, CAP Mirtazapine* (Mirtazapine*) 15 Mg Tablet 15 MG ORAL BEDTIME, TAB Mv-Mn/Lutein/Zeax/Bilber/Hb277 (Macular Health Formula Capsule) 1 Each Capsule 1 EACH PO DAILY, CAP [place]-3 Fatty Acids/Fish Oil ([place] 3 1,000 Mg Softgel) 1 Each Capsule 1 EACH PO DAILY, CAP Omeprazole (Omeprazole) 20 Mg Capsule.dr 20 MG ORAL DAILY, CAP Unable to Obtain Medications (Unable To Obtain Meds) 1 Ea Ea Discontinued Medications: Carbidopa/Levodopa 25-100 Mg* (Sinemet 25-100 Mg Tablet*) 1 Each Tablet 1 TAB ORAL BID, TAB Discharge Condition Upon Discharge: stable Discharge Disposition Patient was discharged to SNF/Subacute Facility(03) Discharge Diagnoses: Juan Bar M.D. Jul 15, 2017 13:53
--- NOTE | 2017-07-19 13:32 | Diagnostic Imaging Report ---
Indications: Dysphagia Technique: Patient ingested multiple substances under the supervision of speech pathology. Video fluoroscopic recording performed. Total fluoroscopy time 294 seconds. Total dose area product 0.45802 mGycm2 Comparison: none Findings: No definite aspiration or penetration demonstrated, with the exception one episode of penetration of thin liquid barium used to wash out barium puree. Early entry of materials into the vallecula and piriform sinuses noted. Some delayed pooling with barium puree Impression: Single episode of penetration of thin liquid barium. No evidence of aspiration Please refer to speech pathology report for more detailed analysis
--- NOTE | 2017-07-19 18:36 | Cardiology Report ---
APPROVED REPORT EKG Measurement Heart [id number] Normal sinus rhythm with sinus arrhythmia Possible Left atrial enlargement Cannot rule out Anterior infarct, age undetermined Abnormal ECG
== END 2017-07-15 13:40 | DRG 56 ==
LOC: EMR 15:13 → EDBEDREQ 15:26 → 4W 15:40 → EDBEDREQ 15:47
DX: G20 Parkinson's disease (principal); G93.40 Encephalopathy, unspecified; E43 Unspecified severe protein-calorie malnutrition; E86.0 Dehydration; F02.80 Dementia in other diseases classified elsewhere, unspecified severity, without behavioral disturbance, psychotic disturbance, mood disturbance, and anxiety; Z68.1 Body mass index [BMI] 19.9 or less, adult; R62.7 Adult failure to thrive; R53.1 Weakness; M16.0 Bilateral primary osteoarthritis of hip; K21.9 Gastro-esophageal reflux disease without esophagitis; Z88.3 Allergy status to other anti-infective agents; Z88.2 Allergy status to sulfonamides; Z66 Do not resuscitate
CPT/HCPCS: 36415; 36600; 71045; 71250; 74230; 80048; 80053; 80061; 81003; 82140; 82306; 82378; 82607; 82746; 82803; 83036; 83605; 83735; 84100; 84443; 85025; 85651; 86304; 86592; 87040; 87081; 87086; 93005; 99285

== ENCOUNTER 2018-12-08 12:15 | Inpatient (IN) | payer MEDICARE, BC ==
[~2018-12-08] VITALS: Ht 162.6 cm; Wt 59.6 kg
[~2018-12-08 12:15] MED LIST: ASPIRIN-LOW81 MG ORAL; CALCIUM500 M2 PO; CRANBERRY400 MG PO; DONEPEZIL HCL10 M2 ORAL; IMODIUM A-D2 M2 PO; MACULAR HEALTH1 EACH PO; MIRTAZAPINE15 M3 ORAL; OMEGA 3 1,0001 EACH PO; OMEPRAZOLE20 M2 ORAL; SINEMET 25-1001 EAC1 ORAL; SINEMET 25/1001 EA ORAL; UNOBMED; VITAMIN B122500 MCG PO; VITAMIN C500 M1 ORAL; VITAMIN D1000 UNI1 ORAL
--- NOTE | 2018-12-08 12:15 | NUR ---
ED Nurse Note: Patient brought into ED by ambulance from [facility] due to Fever 101F yesteday. patient's daughter reports that patient has been coughing. temperature 97.7 oral upon arrival. patient is awake, breathing unlabored and even. daughter by the bedside.
[2018-12-08 12:26] VITALS: BP 129/87
--- NOTE | 2018-12-08 12:44 | NUR ---
ED Nurse Note: Pt blood and urine collected and sent to lab.
--- NOTE | 2018-12-08 13:16 | Diagnostic Imaging Report ---
EXAM: XR Chest, 1 View CLINICAL HISTORY: WEAK TECHNIQUE: Frontal view of the chest. COMPARISON: Chest x-ray dated 07/11/17. CT chest dated 07/13/17. FINDINGS: Lungs: Patchy consolidation throughout the left mid and lower lung and mild consolidation in bilateral lung apices, concerning for multifocal pneumonia. Pleural space: Unremarkable. The costophrenic angles are sharp. No visible pneumothorax. Heart: Unremarkable. No cardiomegaly. Mediastinum: Unremarkable. Bones/joints: Degenerative changes of the visualized shoulder joints and spine. Vasculature: Atherosclerotic calcifications are noted within the aortic arch. Tubes, lines and devices: Telemetry leads overlie the thorax. IMPRESSION: Patchy consolidation throughout the left mid and lower lung and mild consolidation in bilateral lung apices, concerning for multifocal pneumonia.
[2018-12-08 13:18] LABS: HEMOGLOBIN 10.1 G/DL (12.0-16.0); MEAN CORPUSCULAR VOLUME 93 FL (80-99); PLATELET COUNT 433 K/UL (150-450); RED BLOOD COUNT 3.32 M/UL (4.20-5.40); RED CELL DISTRIBUTION WIDTH 12.5 % (11.6-14.8); WHITE BLOOD COUNT 18.8 K/UL (4.8-10.8)
[2018-12-08 13:27] LABS: ANION GAP 11 mmol/L (5-15); BLOOD UREA NITROGEN 21 mg/dL (7-18); CARBON DIOXIDE 27 MMOL/L (21-32); CHLORIDE 105 MMOL/L (98-107); CREATININE 0.7 MG/DL (0.55-1.30); POTASSIUM 3.6 MMOL/L (3.5-5.1); SODIUM 142 MMOL/L (136-145)
[2018-12-08 13:35] VITALS: BP 123/45
[2018-12-08 13:39] LABS: ALANINE AMINOTRANSFERASE 7 U/L (12-78); ALBUMIN 2.1 G/DL (3.4-5.0); ALBUMIN/GLOBULIN RATIO 0.6 (1.0-2.7); ALKALINE PHOSPHATASE 164 U/L (46-116); ASPARTATE AMINO TRANSFERASE 20 U/L (15-37); BILIRUBIN,TOTAL 0.6 MG/DL (0.2-1.0)
[2018-12-08 13:41] LABS: APPEARANCE,URINE CLEAR; BILIRUBIN, URINE NEGATIVE (NEGATIVE); GLUCOSE, URINE (UA) NEGATIVE (NEGATIVE); KETONES,URINE 1+ (NEGATIVE); LEUKOCYTE ESTERASE ,URINE 1+ (NEGATIVE); NITRITE,URINE POSITIVE (NEGATIVE); PH,URINE 5 (4.5-8.0); PROTEIN,URINE 2+ (NEGATIVE); UROBILINOGEN,URINE 1 MG/DL (0.0-1.0)
[2018-12-08 13:50] LABS: COLOR,URINE YELLOW
[2018-12-08] MEDS ORDERED: Piperacillin/Tazobactam 3.375 GM in NS 110 ML IVPB ONE (14:00)
[2018-12-08] MEDS ORDERED: Azithromycin 500 MG in D5W 275 ML IVPB ONE (14:00)
[2018-12-08] MEDS ORDERED: POLYETHYLENE GL17 GM ORAL (14:10)
[2018-12-08] MEDS ORDERED: ATIVAN2 MG/1 ML IV (14:10)
[2018-12-08] MEDS ORDERED: TYLENOL EXTRA500 MG ORAL (14:10)
[2018-12-08] MEDS ORDERED: PCA MORPHINE1 MG/ML IV (14:10)
[2018-12-08] MEDS ORDERED: ZOFRAN 4 MG4 MG/2 ML IV (14:10)
[2018-12-08] MEDS ORDERED: MYLANTA30 M1 ORAL (14:10)
[2018-12-08] MEDS ORDERED: AMBIEN5 MG ORAL (14:10)
[2018-12-08] MEDS ORDERED: DEXTROSE 50%-WA50 M1 IV (14:12)
--- NOTE | 2018-12-08 14:27 | NUR ---
ED Nurse Note: Report given to TIMOTEO Del Toro at ext [phone]. Pt to be transfered to room 302-2 on [facility] per protocol.
--- NOTE | 2018-12-08 14:27 | NUR ---
ED Nurse Note: Endorsed Zosyn 3.375mg to TIMOTEO Del Toro.
--- NOTE | 2018-12-08 14:30 | NUR ---
NURSE NOTES: Patient received from ER at 1430, via gurney, on RA in stable condition. Patient alert to self. Daughter (DPOA [phone]) at bedside. Oriented patient to room and call light for safety. RAC IV infusing Azithromycin on IV pump at this time. Patient noted with weak, non-productive cough. No SOB, no pain, no NV. Skin loose, intact. Tremor to BUE noted. Bed in lowest position, will continue to monitor.
--- NOTE | 2018-12-08 14:30 | Emergency Room Report ---
History of Present Illness General Chief Complaint: Fever Source: Patient, Family Member, EMS Present Illness HPI 83-year-old female presents ED for evaluation. Brought in by EMS from [facility] facility. Reported fever x1 day. Given Tylenol. Cough for several days. Daughter at bedside states patient has history of prior pneumonia and prior UTI. feels week. Denies chest pain or shortness of breath. Denies nausea or vomiting. No other aggravating relieving factors. Denies any other associated symptoms Allergies: Coded Allergies: DICLOFENAC (Verified Allergy, Unknown, 07/11/17) SULFA (SULFONAMIDE ANTIBIOTICS) (Verified Allergy, Unknown, 07/11/17) SULFAMETHOXAZOLE (Verified Allergy, Unknown, 07/11/17) TRIMETHOPRIM (Verified Allergy, Unknown, 07/11/17) Patient History Past Medical History: dementia Past Surgical History: none Pertinent Family History: none Social History: Denies: smoking, alcohol use, drug use Now: No Immunizations: UTD Reviewed Nursing Documentation: PMH: Agreed; PSxH: Agreed Nursing Documentation-PMH Hx Dementia: Yes Hx Tremors: Yes Review of Systems All Other Systems: negative except mentioned in HPI Physical Exam Vital Signs Date Time Temp Pulse Resp B/P (MAP) Pulse Ox O2 Delivery O2 Flow Rate FiO2 12/08/18 12:10 98.1 80 14 114/58 (76) 91 Room Air Sp02 EP Interpretation: reviewed, normal General Appearance: alert, GCS 15, non-toxic, cachetic Head: normocephalic, atraumatic Eyes: bilateral eye normal inspection, bilateral eye PERRL ENT: hearing grossly normal, normal pharynx, no angioedema, normal voice Neck: full range of motion, supple/symm/no masses Respiratory: chest non-tender, lungs clear, crackles, speaking full sentences Cardiovascular #1: regular rate, rhythm, no edema Cardiovascular #2: 2+ carotid (R), 2+ carotid (L), 2+ radial (R), 2+ radial (L) , 2+ dorsalis pedis (R), 2+ dorsalis pedis (L) Gastrointestinal: normal bowel sounds, non tender, soft, non-distended, no guarding, no rebound Rectal: deferred Genitourinary: normal inspection, no CVA tenderness Musculoskeletal: back normal, gait/station normal, normal range of motion, non- tender Neurologic: alert, oriented x3, responsive, motor strength/tone normal, sensory intact, speech normal Psychiatric: judgement/insight normal, memory normal, mood/affect normal, no suicidal/homicidal ideation Reflexes: 3+ bicep (R), 3+ bicep (L), 3+ tricep (R), 3+ tricep (L), 3+ knee (R) , 3+ knee (L) Skin: normal color, no rash, warm/dry, well hydrated Lymphatic: no adenopathy Medical Decision Making Diagnostic Impression: Primary Impression: Pneumonia Qualified Codes: J18.9 - Pneumonia, unspecified organism Additional Impressions: Weakness UTI (urinary tract infection) Qualified Codes: N39.0 - Urinary tract infection, site not specified ER Course Hospital Course 83 yo F presents with cough, fever, weakness Differential diagnoses include: Pneumonia, CHF exacerbation, pneumothorax, fluid overload Clinical course Patient placed on stretcher. On monitoring coordinator. After initial history and physical, I ordered labs, IV fluids, EKG, chest x-ray, blood cultures, UA. Labs -leukocytosis noted, hemoglobin/hematocrit stable, electrolytes okay, lactate okay, UA + bacteria EKG - NSR no acute ischemic changes interpreted by me CXR - L sided multifocal infiltrate IV fluids. Given broad-spectrum antibiotics. Case discussed with Dr. Gordon and he agreed to the patient to his service for further care and support per POLST patient is DNR/comfort I feel this is a highly complex case requiring extensive working including EKG/ Rhythm strip, Xray/CT/US, Blood/urine lab work, repeat exams while in ED, and administration of strong opiates/narcotics for pain control, admission to hospital or close patient follow up. Diagnosis - pneumonia, weakness, UTI Patient admitted to floor in serious condition Labs Test 12/08/18 12:45 12/08/18 13:12 White Blood Count 18.8 K/UL (4.8-10.8) Red Blood Count 3.32 M/UL (4.20-5.40) Hemoglobin 10.1 G/DL (12.0-16.0) Hematocrit 31.0 % (37.0-47.0) Mean Corpuscular Volume 93 FL (80-99) Mean Corpuscular Hemoglobin 30.2 PG (27.0-31.0) Mean Corpuscular Hemoglobin Concent 32.4 G/DL (32.0-36.0) Red Cell Distribution Width 12.5 % (11.6-14.8) Platelet Count 433 K/UL (150-450) Mean Platelet Volume 6.3 FL (6.5-10.1) Neutrophils (%) (Auto) % (45.0-75.0) Lymphocytes (%) (Auto) % (20.0-45.0) Monocytes (%) (Auto) % (1.0-10.0) Eosinophils (%) (Auto) % (0.0-3.0) Basophils (%) (Auto) % (0.0-2.0) Differential Total Cells Counted 100 Neutrophils % (Manual) 92 % (45-75) Lymphocytes % (Manual) 2 % (20-45) Monocytes % (Manual) 6 % (1-10) Eosinophils % (Manual) 0 % (0-3) Basophils % (Manual) 0 % (0-2) Band Neutrophils 0 % (0-8) Platelet Estimate Adequate Platelet Morphology Normal Hypochromasia 1+ Sodium Level 142 MMOL/L (136-145) Potassium Level 3.6 MMOL/L (3.5-5.1) Chloride Level 105 MMOL/L (98-107) Carbon Dioxide Level 27 MMOL/L (21-32) Anion Gap 11 mmol/L (5-15) Blood Urea Nitrogen 21 mg/dL (7-18) Creatinine 0.7 MG/DL (0.55-1.30) Estimat Glomerular Filtration Rate mL/min (>60) Glucose Level 109 MG/DL (74-106) Lactic Acid Level 0.90 mmol/L (0.4-2.0) Calcium Level 9.0 MG/DL (8.5-10.1) Total Bilirubin 0.6 MG/DL (0.2-1.0) Aspartate Amino Transf (AST/SGOT) 20 U/L (15-37) Alanine Aminotransferase (ALT/SGPT) 7 U/L (12-78) Alkaline Phosphatase 164 U/L (46-116) Pro-B-Type Natriuretic Peptide 1578 pg/mL (0-125) Total Protein 5.8 G/DL (6.4-8.2) Albumin 2.1 G/DL (3.4-5.0) Globulin 3.7 g/dL Albumin/Globulin Ratio 0.6 (1.0-2.7) Urine Color Yellow Urine Appearance Clear Urine pH 5 (4.5-8.0) Urine Specific [place] 1.015 (1.005-1.035) Urine Protein 2+ (NEGATIVE) Urine Glucose (UA) Negative (NEGATIVE) Urine Ketones 1+ (NEGATIVE) Urine Blood 2+ (NEGATIVE) Urine Nitrite Positive (NEGATIVE) Urine Bilirubin Negative (NEGATIVE) Urine Urobilinogen 1 MG/DL (0.0-1.0) Urine Leukocyte Esterase 1+ (NEGATIVE) Urine RBC 2-4 /HPF (0 - 2) Urine WBC 5-10 /HPF (0 - 2) Urine Squamous Epithelial Cells Few /LPF (NONE/OCC) Urine Bacteria Moderate /HPF (NONE) EKG Diagnostic Results Rate: normal Rhythm: NSR ST Segments: no acute changes ASA given to the pt in ED: No Rhythm Strip Diag. Results EP Interpretation: yes Rhythm: NSR, no PVC's, no ectopy Chest X-Ray Diagnostic Results Chest X-Ray Diagnostic Results : Chest X-Ray Ordered: Yes # of Views/Limited/Complete: 1 View Indication: Shortness of Breath EP Interpretation: Yes Interpretation: no pneumothorax, other - L sided infiltrate Impression: Other - pneumonia Electronically Signed by: Electronically signed by Kenny Wilde MD Last Vital Signs Date Time Temp Pulse Resp B/P (MAP) Pulse Ox O2 Delivery O2 Flow Rate FiO2 12/08/18 13:35 97.8 79 20 123/45 96 Room Air Status: improved Disposition: ADMITTED INPATIENT Condition: Serious Referrals: Tracee Roberson MD (PCP) Kenny Wilde MD Dec 08, 2018 14:30
[2018-12-08 14:39] VITALS: BP 132/65
[2018-12-08] MEDS ORDERED: Miralax 17gm pkt ORAL PRN (15:45)
[2018-12-08] MEDS ORDERED: Morphine Sulfate 2mg/ml Inj(IV/IM USE ONLY) IVP PRN (15:45)
[2018-12-08] MEDS ORDERED: Milk of Magnesia 30ml Ud ORAL PRN (15:45)
[2018-12-08] MEDS ORDERED: Mylanta II UD 30ml ORAL PRN (15:45)
[2018-12-08] MEDS ORDERED: Nitroglycerin Subl 0.4mg tab SL PRN (15:45)
[2018-12-08] MEDS ORDERED: Morphine Sulfate 4mg/ml Inj (IV USE ONLY) IVP PRN (15:45)
[2018-12-08] MEDS ORDERED: Albuterol/Ipratropium 3ml neb HHN PRN (15:45)
--- NOTE | 2018-12-08 15:46 | History & Physical ---
History and Physical History & Physicial Case d/w Dr. Francois in the ED Pt is an 83 y/o SNF patient, who presents with difficulty breathing, in ED found to have CXR consistent with multifocal pneumonia and pyruia on UA. Urine cx pending. Pt code status is DNR/DNI, with primary goal of comfort. No escalation of care. Pt to be admitted to [facility] for IV abx and supp respiratory care. Case d/w ID and Pulmonary who will see her for consultation. Discussed with bedside RN as well. All admission orders placed. Full H+P to follow Tracee Roberson MD Dec 08, 2018 15:46
--- NOTE | 2018-12-08 15:56 | NUR ---
CASE MANAGEMENT: INITIAL REVIEW 83 YO F [facility] FROM [facility] CC: FEVER PMHx: DEMENTIA. TREMORS. SI:WEAKNESS. FEVER. T 98.1 HR 80 RR 14 B/P: 114/58 SATS 91% ON RA WBC 18.8 BUN 21 GLU 109 ALT 7 ALP 164 BNP 1578 IS: NS BOLUS X1 CXR (IMPRESSION:Patchy consolidation throughout the left mid and lower lung and mild consolidation in bilateral lung apices, concerning for multifocal pneumonia) PATIENT ADMITTED TO MED/SURG 12/08/2018 @ 1316 DCP: PATIENT TO BE DISCHARGED TO SNF ONCE MEDICALLY CLEARED. PLAN OF CARE: primary goal of comfort No escalation of care Addendum: 12/08/18 at 1810 by Soco Welch CM INTERQUAL MET
[2018-12-08] MEDS ORDERED: Cefepime HCl 1 GM in D5W 55 ML IVPB SCH (17:00)
--- NOTE | 2018-12-08 17:00 | NUR ---
NURSE NOTES: Instructed patient and daughter on sputum culture order, specimen cup provided. Will continue to monitor.
[2018-12-08] MEDS: Levodopa/Carbidopa 25/100 tab ORAL SCH (18:35)
[2018-12-08] MEDS: Vancomycin 500mg/D5W 110ml IVPB SCH ×2 (18:35)
--- NOTE | 2018-12-08 18:57 | Infectious Diseases Prog Note ---
Assessment/Plan Assessment/Plan Full consult dictated: A) 1) pneumonia, possible sepsis, uti, leukocytosis 2) pmh noted 3) allergies - sulfa P) 1) zosyn, vancomycin, azithromycin 2) check cultures, labs, chest x-ray and serology 3) thank you Subjective Allergies: Coded Allergies: DICLOFENAC (Verified Allergy, Unknown, 07/11/17) SULFA (SULFONAMIDE ANTIBIOTICS) (Verified Allergy, Unknown, 07/11/17) SULFAMETHOXAZOLE (Verified Allergy, Unknown, 07/11/17) TRIMETHOPRIM (Verified Allergy, Unknown, 07/11/17) Objective Vital Signs Last 24 Hour Vital Signs Date Time Temp Pulse Resp B/P (MAP) Pulse Ox O2 Delivery O2 Flow Rate FiO2 12/08/18 14:39 97.8 82 18 132/65 (87) 93 12/08/18 14:27 97.8 79 20 123/45 96 Room Air 12/08/18 13:35 97.8 79 20 123/45 96 Room Air 12/08/18 13:34 88 22 Room Air 12/08/18 12:26 97.7 88 22 129/87 95 Room Air 12/08/18 12:10 98.1 80 14 114/58 (76) 91 Room Air Height (Feet): 5 Height (Inches): 4.00 Weight (Pounds): 120 Laboratory Tests Test 12/08/18 12:45 12/08/18 13:12 White Blood Count 18.8 K/UL (4.8-10.8) H Red Blood Count 3.32 M/UL (4.20-5.40) L Hemoglobin 10.1 G/DL (12.0-16.0) L Hematocrit 31.0 % (37.0-47.0) L Mean Corpuscular Volume 93 FL (80-99) Mean Corpuscular Hemoglobin 30.2 PG (27.0-31.0) Mean Corpuscular Hemoglobin Concent 32.4 G/DL (32.0-36.0) Red Cell Distribution Width 12.5 % (11.6-14.8) Platelet Count 433 K/UL (150-450) Mean Platelet Volume 6.3 FL (6.5-10.1) L Neutrophils (%) (Auto) % (45.0-75.0) Lymphocytes (%) (Auto) % (20.0-45.0) Monocytes (%) (Auto) % (1.0-10.0) Eosinophils (%) (Auto) % (0.0-3.0) Basophils (%) (Auto) % (0.0-2.0) Differential Total Cells Counted 100 Neutrophils % (Manual) 92 % (45-75) H Lymphocytes % (Manual) 2 % (20-45) L Monocytes % (Manual) 6 % (1-10) Eosinophils % (Manual) 0 % (0-3) Basophils % (Manual) 0 % (0-2) Band Neutrophils 0 % (0-8) Platelet Estimate Adequate Platelet Morphology Normal Hypochromasia 1+ Sodium Level 142 MMOL/L (136-145) Potassium Level 3.6 MMOL/L (3.5-5.1) Chloride Level 105 MMOL/L (98-107) Carbon Dioxide Level 27 MMOL/L (21-32) Anion Gap 11 mmol/L (5-15) Blood Urea Nitrogen 21 mg/dL (7-18) H Creatinine 0.7 MG/DL (0.55-1.30) Estimat Glomerular Filtration Rate mL/min (>60) Glucose Level 109 MG/DL (74-106) H Lactic Acid Level 0.90 mmol/L (0.4-2.0) Calcium Level 9.0 MG/DL (8.5-10.1) Total Bilirubin 0.6 MG/DL (0.2-1.0) Aspartate Amino Transf (AST/SGOT) 20 U/L (15-37) Alanine Aminotransferase (ALT/SGPT) 7 U/L (12-78) L Alkaline Phosphatase 164 U/L (46-116) H Pro-B-Type Natriuretic Peptide 1578 pg/mL (0-125) H Total Protein 5.8 G/DL (6.4-8.2) L Albumin 2.1 G/DL (3.4-5.0) L Globulin 3.7 g/dL Albumin/Globulin Ratio 0.6 (1.0-2.7) L Urine Color Yellow Urine Appearance Clear Urine pH 5 (4.5-8.0) Urine Specific [place] 1.015 (1.005-1.035) Urine Protein 2+ (NEGATIVE) H Urine Glucose (UA) Negative (NEGATIVE) Urine Ketones 1+ (NEGATIVE) H Urine Blood 2+ (NEGATIVE) H Urine Nitrite Positive (NEGATIVE) H Urine Bilirubin Negative (NEGATIVE) Urine Urobilinogen 1 MG/DL (0.0-1.0) H Urine Leukocyte Esterase 1+ (NEGATIVE) H Urine RBC 2-4 /HPF (0 - 2) H Urine WBC 5-10 /HPF (0 - 2) H Urine Squamous Epithelial Cells Few /LPF (NONE/OCC) Urine Bacteria Moderate /HPF (NONE) H Current Medications Medications (Trade) Dose Ordered Sig/Mary Route PRN Reason Start Time Stop Time Status Last Admin Dose Admin Acetaminophen (Tylenol) 650 mg Q4H PRN ORAL Mild Pain (Pain Scale 1-3) 12/08/18 15:45 01/07/19 15:44 Acetaminophen (Tylenol) 650 mg Q4H PRN ORAL fever 12/08/18 15:45 01/07/19 15:44 Al Hydroxide/Mg Hydroxide (Mylanta II) 30 ml Q6H PRN ORAL dyspepsia 12/08/18 15:45 01/07/19 15:44 Albuterol/ Ipratropium (Albuterol/ Ipratropium) 3 ml Q4H PRN HHN Shortness of Breath 12/08/18 15:45 12/13/18 15:44 Aspirin (Ecotrin) 81 mg DAILY ORAL 12/09/18 09:00 01/08/19 08:59 Bisacodyl (Dulcolax) 10 mg HSPRN PRN RECTAL Constipation 12/08/18 15:45 01/07/19 15:44 Carbidopa/Levodopa (Sinemet 25/100) 1 tab THREE TIMES A DAY ORAL 12/08/18 18:00 01/07/19 17:59 12/08/18 18:35 Cefepime HCl 1 gm/ Dextrose 55 ml @ 110 mls/hr Q24H IVPB 12/08/18 17:00 12/15/18 16:59 12/08/18 17:27 Dextrose (Dextrose 50%) 25 ml Q30M PRN IV Hypoglycemia 12/08/18 15:45 01/07/19 15:44 Dextrose (Dextrose 50%) 50 ml Q30M PRN IV Hypoglycemia 12/08/18 15:45 01/07/19 15:44 Diphenhydramine HCl (Benadryl) 25 mg Q6H PRN ORAL Itching/Pruritis 12/08/18 15:45 01/07/19 15:44 Docusate Sodium (Colace) 100 mg EVERY 12 HOURS ORAL 12/08/18 21:00 01/07/19 20:59 Donepezil HCl (Aricept) 10 mg DAILY ORAL 12/09/18 09:00 01/08/19 08:59 Heparin Sodium (Porcine) (Heparin 5000 units/ml) 5,000 units EVERY 8 HOURS SUBQ 12/08/18 22:00 01/07/19 21:59 Magnesium Hydroxide (Mom) 30 ml HSPRN PRN ORAL Constipation 12/08/18 15:45 01/07/19 15:44 Mirtazapine (Remeron) 15 mg BEDTIME ORAL 12/08/18 21:00 01/07/19 20:59 Morphine Sulfate (Morphine Sulfate) 2 mg Q6H PRN IVP Moderate Pain (Pain Scale 4-6) 12/08/18 15:45 12/15/18 15:44 Morphine Sulfate (Morphine Sulfate) 4 mg Q6H PRN IVP Severe Pain (Pain Scale 7-10) 12/08/18 15:45 12/15/18 15:44 Nitroglycerin (Ntg) 0.4 mg Q5M X 3 DOSES PRN SL Prn Chest Pain 12/08/18 15:45 01/07/19 15:44 Ondansetron HCl (Zofran) 4 mg Q6H PRN IVP Nausea & Vomiting 12/08/18 15:45 01/07/19 15:44 Polyethylene Glycol (Miralax) 17 gm HSPRN PRN ORAL Constipation 12/08/18 15:45 01/07/19 15:44 Sodium Chloride 1,000 ml @ 75 mls/hr [id number] IV 12/08/18 16:00 01/07/19 15:59 12/08/18 17:18 Temazepam (Restoril) 15 mg HSPRN PRN ORAL Insomnia 12/08/18 15:45 12/15/18 15:44 Vancomycin HCl (Vanco rx to dose) 1 ea DAILY PRN MISC Per rx protocol 12/08/18 15:45 01/07/19 15:44 Vancomycin HCl 500 mg/Dextrose 110 ml @ 110 mls/hr Q12HR@0600,1800 IVPB 12/08/18 18:00 12/13/18 17:59 12/08/18 18:35 Hardy Alexander MD Dec 08, 2018 18:57
--- NOTE | 2018-12-08 19:25 | NUR ---
HAND-OFF: Report given to Lexa MAHMOOD.
--- NOTE | 2018-12-08 19:25 | NUR ---
NURSE NOTES: Report taken from Esther MAHMOOD. Patient is asleep, arousable to name, daughter at bedside. A&Ox2, does not know where she is or when it is. No signs of distress with room air. IV site c/d/i and patent, monitor site as her skin is very sensitive. Skin intact. RN spoke with patient and family about specimen collection. Daughter is POA #[phone]. Bed in lowest position, call light within reach.
[2018-12-08] MEDS: Docusate 100mg cap ORAL SCH (20:27)
[2018-12-08] MEDS: Heparin 5000 units/ml inj SUBQ SCH (21:57)
[2018-12-09] VITALS: BP 137/66
[2018-12-09 04:00] VITALS: BP 140/69
[2018-12-09] MEDS: Vancomycin 500mg/D5W 110ml IVPB SCH ×2 (05:32)
[2018-12-09] MEDS: Heparin 5000 units/ml inj SUBQ SCH ×3 (05:33→22:01)
--- NOTE | 2018-12-09 07:10 | NUR ---
NURSE NOTES: Report received from Lexa RN, rounds made. Patient resting in semi-fowlers position in bed. Alert oriented x1, calm. Daughter at bedside. No SOB on RA/at rest, denies pain or NV. Skin warm/dry/pink. No edema. Occasional weak, dry cough noted, offered to have RT provide respiratory treatment, patient refused. IVF infusing to RAC, NS at 75 ml/hr. Will start Zosyn IVPB as scheduled. Call light in reach, bed in lowest position, will continue to monitor.
--- NOTE | 2018-12-09 07:27 | NUR ---
HAND-OFF: Report given to TIMOTEO Santana. Patient awake and VS stable.
[2018-12-09 08:00] VITALS: BP 123/65
[2018-12-09 08:13] LABS: HEMATOCRIT 29.8 % (37.0-47.0); HEMOGLOBIN 9.8 G/DL (12.0-16.0); MEAN CORPUSCULAR VOLUME 93 FL (80-99); PLATELET COUNT 436 K/UL (150-450); RED BLOOD COUNT 3.21 M/UL (4.20-5.40); RED CELL DISTRIBUTION WIDTH 12.4 % (11.6-14.8); WHITE BLOOD COUNT 17.5 K/UL (4.8-10.8)
[2018-12-09] MEDS: Docusate 100mg cap ORAL SCH ×2 (08:13→20:08)
[2018-12-09] MEDS: Donepezil 10mg tab ORAL SCH (08:13)
[2018-12-09] MEDS: Aspirin EC 81mg tab ORAL SCH (08:13)
[2018-12-09] MEDS: Azithromycin 250mg tab ORAL SCH (08:13)
[2018-12-09] MEDS: Levodopa/Carbidopa 25/100 tab ORAL SCH ×3 (08:13→18:26)
[2018-12-09 08:44] LABS: ANION GAP 10 mmol/L (5-15); BLOOD UREA NITROGEN 14 mg/dL (7-18); CALCIUM 8.6 MG/DL (8.5-10.1); CARBON DIOXIDE 26 MMOL/L (21-32); CHLORIDE 106 MMOL/L (98-107); CREATININE 0.7 MG/DL (0.55-1.30); POTASSIUM 3.5 MMOL/L (3.5-5.1); SODIUM 142 MMOL/L (136-145)
--- NOTE | 2018-12-09 10:03 | Consultation ---
Consult Note Consult Note PCCM CONSULTATION REFERRING PHYSICIAN: Tracee Roberson MD REASON FOR REFERRAL: MULTILOBAR PNA HPI: 83 F NHR h/o dementia and PD BIB EMS with RD, h/o bxtsis and b mass like opacities in the past, now with multilobar infiltrates. Per her daughter she was diagnosed with multiple b nodules many years ago and they were worked up and deemed non-cancerous. When she was @ [facility] 06/2017 CT showed b bxtsis and nodular infiltrates, some masslike. Given her overall GOC they were not worked up further. She lives in an [facility] and has no breathing impairment @ baseline. She is on a mechanical soft diet and per her daughter has no obvious difficulty swallowing. She does clear her throat regularly. 2 days ago the staff @ the [facility] noticed an increase in her baseline cough and fevers, thus she was sent to the ED. No wheezing, no hemoptysis, + weight loss, no chills, no NS, no NVDC, no abdominal pain or urinary complaints. @ baseline she walks and eats with assistance, she talks but is confused. PMH/PSH: PD, dementia, GERD, DJD ALL: Diclofenac, Sulfa, TMP-SMX Active Scripts Medications Dose Route/Sig Max Daily Dose Days Date Category Dose Instructions Dextrose 50%-Water Vial (Dextrose 50 % In Water) 50 Ml Vial Ml IV PRN 12/08/18 Reported Ambien* (Zolpidem Tartrate) 5 Mg Tablet 5 Mg ORAL BEDTIME PRN 12/08/18 Reported Polyethylene Glycol 3350* (Polyethylene Glycol) 17 Gm Powd.pack 17 Gm ORAL BEDTIME PRN 12/08/18 Reported Zofran* (Ondansetron HCl) 4 Mg/2 Ml Vial 4 Mg IV Q6H PRN 12/08/18 Reported Morphine Sulfate 1 mg/ml Vial (Morphine Sulfate) 30 Mg/30 Ml Physician Relations Specialist.vial 1 Mg IV Q4HR 12/08/18 Reported Ativan* (Lorazepam) 2 Mg/1 Ml Vial 0.5 Mg IV Q4H 12/08/18 Reported Mag-Al Liquid (Al Hydroxide/Mg Hydroxide) 30 Ml Oral.susp 30 Ml ORAL Q6HR 12/08/18 Reported Tylenol Extra Strength* (Acetaminophen) 500 Mg Tablet 650 Mg ORAL Q4HR 12/08/18 Reported Carbidopa-Levodopa 25-100 Tab (Carbidopa/Levodopa) 1 Each Tablet 1 Tab ORAL THREE TIMES A DAY 90 07/15/17 Rx given 30min prior to meals Donepezil Hcl* (Donepezil HCl) 10 Mg Tab.rapdis 10 Mg ORAL HS 07/11/17 Reported Vitamin D* (Cholecalciferol (Vitamin D3)*) 1,000 Unit Tablet 1,000 Unit ORAL DAILY 07/11/17 Reported Calcium (Calcium Carbonate) 500 Mg Tablet 500 Mg PO DAILY 07/11/17 Reported Unable To Obtain Meds (Unable to Obtain Medications) 1 Ea Ea 07/11/17 Reported Vitamin C* (Ascorbic Acid) 500 Mg Tablet 500 Mg ORAL DAILY 07/11/17 Reported Cranberry 400 Mg Capsule 400 Mg PO BEDTIME 07/11/17 Reported Imodium A-D (Loperamide HCl) 2 Mg Capsule 2 Mg PO EVERY 6 HOURS PRN 07/11/17 Reported Vitamin B12 (Cyanocobalamin (Vitamin B-12)) 2,500 Mcg Tablet 2,500 Mcg PO DAILY 07/11/17 Reported Omeprazole 20 Mg Capsule. 20 Mg ORAL DAILY 07/11/17 Reported [place] 3 1,000 Mg Softgel ([place]-3 Fatty Acids/Fish Oil) 1 Each Capsule 1 Each PO DAILY 07/11/17 Reported Mirtazapine* (Mirtazapine) 15 Mg Tablet 15 Mg ORAL BEDTIME 07/11/17 Reported Macular Health Formula Capsule (Mv-Mn/Lutein/Zeax/Bilber/Hb277) 1 Each Capsule 1 Each PO DAILY 07/11/17 Reported Aspirin EC (Aspirin) 81 Mg Tablet. 81 Mg ORAL DAILY 07/11/17 Reported SHX: [facility] resident, no REY FHX: N/C ROS: As per HPI, o/w not obtainable PE: Last 24 Hour Vital Signs Date Time Temp Pulse Resp B/P (MAP) Pulse Ox O2 Delivery O2 Flow Rate FiO2 12/09/18 08:00 100.0 87 16 123/65 (84) 93 12/09/18 04:00 98.7 67 18 140/69 (92) 93 12/09/18 00:00 98.1 86 18 137/66 (89) 93 12/08/18 21:10 88 16 97 Room Air 21 12/08/18 21:00 Room Air 12/08/18 14:39 97.8 82 18 132/65 (87) 93 12/08/18 14:30 Room Air 12/08/18 14:27 97.8 79 20 123/45 96 Room Air 12/08/18 13:35 97.8 79 20 123/45 96 Room Air 12/08/18 13:34 88 22 Room Air 12/08/18 12:26 97.7 88 22 129/87 95 Room Air 12/08/18 12:10 98.1 80 14 114/58 (76) 91 Room Air NAD, confused female Parkinsonian tremors NC/AT, OPC c MMM Supple s LAD or JVD Coarse L > R RRR S/NT/ND c NABS No C/C/E 12/08/18 CXR: Dense patchy LLL > R infiltrates 06/2017 CT: Impression: Multiple bilateral nodular and irregular parenchymal opacities, as described above. Association with bronchiectasis suggests that to large extent these represent chronic postinflammatory lesions. However, some lesions, particularly in the right upper lobe and left lower lobe are more masslike in appearance. This raises concern for neoplasm, possibly multifocal. Note that some of the lesions also appear cavitary, although this appearance may be just due to fibrosis surrounding bronchiectatic bronchi Mild hyperinflation suggestive of COPD Small to moderate sliding-type hiatal hernia Small anterior pericardial effusion Incidental findings of left renal parapelvic cysts, degenerative spondylosis Laboratory Tests Test 12/08/18 12:45 12/08/18 13:07 12/08/18 13:12 12/09/18 05:26 White Blood Count 18.8 K/UL (4.8-10.8) H 17.5 K/UL (4.8-10.8) H Red Blood Count 3.32 M/UL (4.20-5.40) L 3.21 M/UL (4.20-5.40) L Hemoglobin 10.1 G/DL (12.0-16.0) L 9.8 G/DL (12.0-16.0) L Hematocrit 31.0 % (37.0-47.0) L 29.8 % (37.0-47.0) L Mean Corpuscular Volume 93 FL (80-99) 93 FL (80-99) Mean Corpuscular Hemoglobin 30.2 PG (27.0-31.0) 30.6 PG (27.0-31.0) Mean Corpuscular Hemoglobin Concent 32.4 G/DL (32.0-36.0) 32.8 G/DL (32.0-36.0) Red Cell Distribution Width 12.5 % (11.6-14.8) 12.4 % (11.6-14.8) Platelet Count 433 K/UL (150-450) 436 K/UL (150-450) Mean Platelet Volume 6.3 FL (6.5-10.1) L 6.4 FL (6.5-10.1) L Neutrophils (%) (Auto) % (45.0-75.0) % (45.0-75.0) Lymphocytes (%) (Auto) % (20.0-45.0) % (20.0-45.0) Monocytes (%) (Auto) % (1.0-10.0) % (1.0-10.0) Eosinophils (%) (Auto) % (0.0-3.0) % (0.0-3.0) Basophils (%) (Auto) % (0.0-2.0) % (0.0-2.0) Differential Total Cells Counted 100 100 Neutrophils % (Manual) 92 % (45-75) H 88 % (45-75) H Lymphocytes % (Manual) 2 % (20-45) L 5 % (20-45) L Monocytes % (Manual) 6 % (1-10) 5 % (1-10) Eosinophils % (Manual) 0 % (0-3) 1 % (0-3) Basophils % (Manual) 0 % (0-2) 1 % (0-2) Band Neutrophils 0 % (0-8) 0 % (0-8) Platelet Estimate Adequate Adequate Platelet Morphology Normal Normal Hypochromasia 1+ Sodium Level 142 MMOL/L (136-145) 142 MMOL/L (136-145) Potassium Level 3.6 MMOL/L (3.5-5.1) 3.5 MMOL/L (3.5-5.1) Chloride Level 105 MMOL/L (98-107) 106 MMOL/L (98-107) Carbon Dioxide Level 27 MMOL/L (21-32) 26 MMOL/L (21-32) Anion Gap 11 mmol/L (5-15) 10 mmol/L (5-15) Blood Urea Nitrogen 21 mg/dL (7-18) H 14 mg/dL (7-18) Creatinine 0.7 MG/DL (0.55-1.30) 0.7 MG/DL (0.55-1.30) Estimat Glomerular Filtration Rate mL/min (>60) mL/min (>60) Glucose Level 109 MG/DL (74-106) H 88 MG/DL (74-106) Lactic Acid Level 0.90 mmol/L (0.4-2.0) Calcium Level 9.0 MG/DL (8.5-10.1) 8.6 MG/DL (8.5-10.1) Total Bilirubin 0.6 MG/DL (0.2-1.0) Aspartate Amino Transf (AST/SGOT) 20 U/L (15-37) Alanine Aminotransferase (ALT/SGPT) 7 U/L (12-78) L Alkaline Phosphatase 164 U/L (46-116) H Pro-B-Type Natriuretic Peptide 1578 pg/mL (0-125) H 1389 pg/mL (0-125) H Total Protein 5.8 G/DL (6.4-8.2) L Albumin 2.1 G/DL (3.4-5.0) L Globulin 3.7 g/dL Albumin/Globulin Ratio 0.6 (1.0-2.7) L Mycoplasma pneumoniae IgG Antibody Pending Mycoplasma pneumoniae IgM Ab Titer Pending Urine Legionella Antigen Pending Urine Color Yellow Urine Appearance Clear Urine pH 5 (4.5-8.0) Urine Specific [place] 1.015 (1.005-1.035) Urine Protein 2+ (NEGATIVE) H Urine Glucose (UA) Negative (NEGATIVE) Urine Ketones 1+ (NEGATIVE) H Urine Blood 2+ (NEGATIVE) H Urine Nitrite Positive (NEGATIVE) H Urine Bilirubin Negative (NEGATIVE) Urine Urobilinogen 1 MG/DL (0.0-1.0) H Urine Leukocyte Esterase 1+ (NEGATIVE) H Urine RBC 2-4 /HPF (0 - 2) H Urine WBC 5-10 /HPF (0 - 2) H Urine Squamous Epithelial Cells Few /LPF (NONE/OCC) Urine Bacteria Moderate /HPF (NONE) H Anisocytosis 1+ Magnesium Level 1.7 MG/DL (1.8-2.4) L Assessment/Plan ASSESSMENT: * Healthcare associated pneumonia (Dense LLL > R infiltrates in an [facility] resident) * H/O bronchiectasis and scattered bilateral pulmonary nodules, seen 06/2017, some masslike * Know pulmonary nodules, upto @ least 10 years, previously worked up and deemed to be non-cancerous * PD, dementia * Dysphagia * DJD * GERD, small HH * DNAR PLAN: * Optimize pulmonary hygiene/mobilize as tolerated * PRN O2 * PRN HHN's * Abx (Vanco, Zosyn, Azithro) per ID * Aspiration precautions, BATTERY RECHARGER eval * Monitor volumes and renal function * DVT Px: Hep SQ * DNAR, no escalation of care * Would not work up underlying lung nodules given GOC, discussed with daughter @ bedside Chris Lunsford MD Dec 09, 2018 10:03
--- NOTE | 2018-12-09 11:00 | NUR ---
NURSE NOTES: Called Dr. Roberson office, left message for call back regarding labs, Magnesium 1.7, awaiting call back.
[2018-12-09 12:00] VITALS: BP 140/69
[2018-12-09] MEDS ORDERED: Tubing IV Secondary IV ONE (13:08)
--- NOTE | 2018-12-09 14:00 | NUR ---
NURSE NOTES: Dr. Roberson notified of Magnesium level 1.7, orders received, will implement, see eMAR.
--- NOTE | 2018-12-09 14:24 | History and Physical ---
History of Present Illness General Date patient seen: Dec 09, 2018 Time patient seen: 14:20 Reason for Hospitalization: Fever Present Illness HPI 83-year-old female presents from [facility] facility after being brought in by EMS. Per the SNF, pt had fever x1 day, given Tylenol with minimal improvement. She c/o dry cough for several days. Denies chest pain or shortness of breath. Denies nausea or vomiting. No other aggravating relieving factors. Denies any other associated symptoms. Pt was admitted overnight, started on broad spectrum IV abx, afebrile overnight. Son at bedside. States feels better this AM, no chest pain or dyspnea. Allergies: Coded Allergies: DICLOFENAC (Verified Allergy, Unknown, 07/11/17) SULFA (SULFONAMIDE ANTIBIOTICS) (Verified Allergy, Unknown, 07/11/17) SULFAMETHOXAZOLE (Verified Allergy, Unknown, 07/11/17) TRIMETHOPRIM (Verified Allergy, Unknown, 07/11/17) Medication History Scheduled Acetaminophen* (Tylenol Extra Strength*), 650 MG ORAL Q4HR, (Reported) Al Hydroxide/mg Hydroxide (Mag-Al Liquid), 30 ML ORAL Q6HR, (Reported) Ascorbic Acid* (Vitamin C*), 500 MG ORAL DAILY, (Reported) Aspirin (Aspirin EC), 81 MG ORAL DAILY, (Reported) Calcium Carbonate (Calcium), 500 MG PO DAILY, (Reported) Cholecalciferol (Vitamin D3)* (Vitamin D*), 1,000 UNIT ORAL DAILY, (Reported) Cranberry (Cranberry), 400 MG PO BEDTIME, (Reported) Cyanocobalamin (Vitamin B-12) (Vitamin B12), 2,500 MCG PO DAILY, (Reported) Dextrose 50 % In Water (Dextrose 50%-Water Vial), ML IV PRN, (Reported) Donepezil Hcl* (Donepezil Hcl*), 10 MG ORAL HS, (Reported) Levodopa/Carbidopa (Carbidopa-Levodopa 25-100 Tab), 1 TAB ORAL THREE TIMES A DAY Lorazepam* (Ativan*), 0.5 MG IV Q4H, (Reported) Mirtazapine* (Mirtazapine*), 15 MG ORAL BEDTIME, (Reported) Morphine Sulfate (Morphine Sulfate 1 mg/ml Vial), 1 MG IV Q4HR, (Reported) Mv-Mn/Lutein/Zeax/Bilber/Hb277 (Macular Health Formula Capsule), 1 EACH PO DAILY , (Reported) [place]-3 Fatty Acids/Fish Oil ([place] 3 1,000 Mg Softgel), 1 EACH PO DAILY, ( Reported) Omeprazole (Omeprazole), 20 MG ORAL DAILY, (Reported) Scheduled PRN Loperamide HCl (Imodium A-D), 2 MG PO EVERY 6 HOURS PRN for Diarrhea, (Reported) Ondansetron* (Zofran*), 4 MG IV Q6H PRN for Nausea & Vomiting, (Reported) Polyethylene Glycol 3350* (Polyethylene Glycol 3350*), 17 GM ORAL BEDTIME PRN for Constipation, (Reported) Zolpidem Tartrate* (Ambien*), 5 MG ORAL BEDTIME PRN for Insomnia, (Reported) Miscellaneous Medications Unable to Obtain Medications (Unable To Obtain Meds), (Reported) Patient History History Provided By: Patient, Family Member, Medical Record Healthcare decision maker daughter Resuscitation status Do Not Resuscitate Advanced Directive on File Daughter Jenn Lin Past Medical/Surgical History Past Medical/Surgical History: (1) Dementia (2) Parkinsons disease (3) Severe bilateral hip osteoarthritis (4) Severe protein-calorie malnutrition (5) nodular infiltrate of lung (6) Weakness Family History Family History: Patient reports no known family medical history. Social History Social History: (1) Lives in assisted living facility Review of Systems ROS Narrative CONSTITUTIONAL: No weight loss, + fevers at SNF, no chills, weakness or fatigue. HEENT: Eyes: No visual loss, blurred vision, double vision or yellow sclerae. Ears, Nose, Throat: No hearing loss, sneezing, congestion, runny nose or sore throat. SKIN: No rash or itching. CARDIOVASCULAR: No chest pain, chest pressure or chest discomfort. No palpitations or edema. RESPIRATORY: No shortness of breath, + dry cough, no sputum. GASTROINTESTINAL: No anorexia, nausea, vomiting or diarrhea. No abdominal pain or blood. NEUROLOGICAL: No headache, dizziness, syncope, paralysis, ataxia, numbness or tingling in the extremities. No change in bowel or bladder control. MUSCULOSKELETAL: No muscle, back pain, joint pain or stiffness. HEMATOLOGIC: No anemia, bleeding or bruising. LYMPHATICS: No enlarged nodes. No history of splenectomy. PSYCHIATRIC: No history of depression or anxiety. ENDOCRINOLOGIC: No reports of sweating, cold or heat intolerance. No polyuria or polydipsia. ALLERGIES: No history of asthma, hives, eczema or rhinitis. Physical Exam Last 24 Hour Vital Signs Date Time Temp Pulse Resp B/P (MAP) Pulse Ox O2 Delivery O2 Flow Rate FiO2 12/09/18 12:00 98.0 87 16 140/69 (92) 94 12/09/18 08:00 100.0 87 16 123/65 (84) 93 12/09/18 04:00 98.7 67 18 140/69 (92) 93 12/09/18 00:00 98.1 86 18 137/66 (89) 93 12/08/18 21:10 88 16 97 Room Air 21 12/08/18 21:00 Room Air 12/08/18 14:39 97.8 82 18 132/65 (87) 93 12/08/18 14:30 Room Air 12/08/18 14:27 97.8 79 20 123/45 96 Room Air Intake and Output 12/08/18 12/09/18 19:00 07:00 Intake Total 618 ml Balance 618 ml Intake Oral 118 ml IV Total 500 ml # Voids 2 Laboratory Tests Test 12/09/18 05:26 White Blood Count 17.5 K/UL (4.8-10.8) H Red Blood Count 3.21 M/UL (4.20-5.40) L Hemoglobin 9.8 G/DL (12.0-16.0) L Hematocrit 29.8 % (37.0-47.0) L Mean Corpuscular Volume 93 FL (80-99) Mean Corpuscular Hemoglobin 30.6 PG (27.0-31.0) Mean Corpuscular Hemoglobin Concent 32.8 G/DL (32.0-36.0) Red Cell Distribution Width 12.4 % (11.6-14.8) Platelet Count 436 K/UL (150-450) Mean Platelet Volume 6.4 FL (6.5-10.1) L Neutrophils (%) (Auto) % (45.0-75.0) Lymphocytes (%) (Auto) % (20.0-45.0) Monocytes (%) (Auto) % (1.0-10.0) Eosinophils (%) (Auto) % (0.0-3.0) Basophils (%) (Auto) % (0.0-2.0) Differential Total Cells Counted 100 Neutrophils % (Manual) 88 % (45-75) H Lymphocytes % (Manual) 5 % (20-45) L Monocytes % (Manual) 5 % (1-10) Eosinophils % (Manual) 1 % (0-3) Basophils % (Manual) 1 % (0-2) Band Neutrophils 0 % (0-8) Platelet Estimate Adequate Platelet Morphology Normal Anisocytosis 1+ Sodium Level 142 MMOL/L (136-145) Potassium Level 3.5 MMOL/L (3.5-5.1) Chloride Level 106 MMOL/L (98-107) Carbon Dioxide Level 26 MMOL/L (21-32) Anion Gap 10 mmol/L (5-15) Blood Urea Nitrogen 14 mg/dL (7-18) Creatinine 0.7 MG/DL (0.55-1.30) Estimat Glomerular Filtration Rate mL/min (>60) Glucose Level 88 MG/DL (74-106) Calcium Level 8.6 MG/DL (8.5-10.1) Magnesium Level 1.7 MG/DL (1.8-2.4) L Pro-B-Type Natriuretic Peptide 1389 pg/mL (0-125) H Height (Feet): 5 Height (Inches): 4.00 Weight (Pounds): 120 Medications Current Medications Medications (Trade) Dose Ordered Sig/Mary Route PRN Reason Start Time Stop Time Status Last Admin Dose Admin Acetaminophen (Tylenol) 650 mg Q4H PRN ORAL Mild Pain (Pain Scale 1-3) 12/08/18 15:45 01/07/19 15:44 Acetaminophen (Tylenol) 650 mg Q4H PRN ORAL fever 12/08/18 15:45 01/07/19 15:44 Al Hydroxide/Mg Hydroxide (Mylanta II) 30 ml Q6H PRN ORAL dyspepsia 12/08/18 15:45 01/07/19 15:44 Albuterol/ Ipratropium (Albuterol/ Ipratropium) 3 ml Q4H PRN HHN Shortness of Breath 12/08/18 15:45 12/13/18 15:44 Aspirin (Ecotrin) 81 mg DAILY ORAL 12/09/18 09:00 01/08/19 08:59 12/09/18 08:13 Azithromycin (Zithromax) 250 mg DAILY ORAL 12/09/18 09:00 12/16/18 08:59 12/09/18 08:13 Bisacodyl (Dulcolax) 10 mg HSPRN PRN RECTAL Constipation 12/08/18 15:45 01/07/19 15:44 Carbidopa/Levodopa (Sinemet 25/100) 1 tab THREE TIMES A DAY ORAL 12/08/18 18:00 01/07/19 17:59 12/09/18 13:54 Dextrose (Dextrose 50%) 25 ml Q30M PRN IV Hypoglycemia 12/08/18 15:45 01/07/19 15:44 Dextrose (Dextrose 50%) 50 ml Q30M PRN IV Hypoglycemia 12/08/18 15:45 01/07/19 15:44 Diphenhydramine HCl (Benadryl) 25 mg Q6H PRN ORAL Itching/Pruritis 12/08/18 15:45 01/07/19 15:44 Docusate Sodium (Colace) 100 mg EVERY 12 HOURS ORAL 12/08/18 21:00 01/07/19 20:59 12/09/18 08:13 Donepezil HCl (Aricept) 10 mg DAILY ORAL 12/09/18 09:00 01/08/19 08:59 12/09/18 08:13 Heparin Sodium (Porcine) (Heparin 5000 units/ml) 5,000 units EVERY 8 HOURS SUBQ 12/08/18 22:00 01/07/19 21:59 12/09/18 13:55 Magnesium Hydroxide (Mom) 30 ml HSPRN PRN ORAL Constipation 12/08/18 15:45 01/07/19 15:44 Magnesium Sulfate 100 ml @ 100 mls/hr Q1H IVPB 12/09/18 14:15 12/09/18 16:14 UNV Mirtazapine (Remeron) 15 mg BEDTIME ORAL 12/08/18 21:00 01/07/19 20:59 12/08/18 20:26 Morphine Sulfate (Morphine Sulfate) 2 mg Q6H PRN IVP Moderate Pain (Pain Scale 4-6) 12/08/18 15:45 12/15/18 15:44 Morphine Sulfate (Morphine Sulfate) 4 mg Q6H PRN IVP Severe Pain (Pain Scale 7-10) 12/08/18 15:45 12/15/18 15:44 Nitroglycerin (Ntg) 0.4 mg Q5M X 3 DOSES PRN SL Prn Chest Pain 12/08/18 15:45 01/07/19 15:44 Ondansetron HCl (Zofran) 4 mg Q6H PRN IVP Nausea & Vomiting 12/08/18 15:45 01/07/19 15:44 Piperacillin Sod/ Tazobactam Sod 3.375 gm/Dextrose 100 ml @ 25 mls/hr Q8H IVPB 12/09/18 07:30 12/16/18 07:29 12/09/18 07:50 Polyethylene Glycol (Miralax) 17 gm HSPRN PRN ORAL Constipation 12/08/18 15:45 01/07/19 15:44 Sodium Chloride 1,000 ml @ 75 mls/hr [id number] IV 12/08/18 16:00 01/07/19 15:59 12/08/18 17:18 Temazepam (Restoril) 15 mg HSPRN PRN ORAL Insomnia 12/08/18 15:45 12/15/18 15:44 Vancomycin HCl (Vanco rx to dose) 1 ea DAILY PRN MISC Per rx protocol 12/08/18 15:45 01/07/19 15:44 Vancomycin HCl 500 mg/Dextrose 110 ml @ 110 mls/hr Q12HR@0600,1800 IVPB 12/08/18 18:00 12/13/18 17:59 12/09/18 05:32 Tracee Roberson MD Dec 09, 2018 14:24
--- NOTE | 2018-12-09 14:29 | History and Physical ---
History of Present Illness General Date patient seen: Dec 09, 2018 Time patient seen: 14:26 Reason for Hospitalization: Fever Present Illness HPI 83-year-old female presents from senior care facility after being brought in by EMS. Per the SNF, pt had fever x1 day, given Tylenol with minimal improvement. She c/o dry cough for several days. Denies chest pain or shortness of breath. Denies nausea or vomiting. No other aggravating relieving factors. Denies any other associated symptoms. Pt was admitted overnight, started on broad spectrum IV abx, afebrile overnight. Son at bedside. States feels better this AM, no chest pain or dyspnea. Allergies: Coded Allergies: DICLOFENAC (Verified Allergy, Unknown, 07/11/17) SULFA (SULFONAMIDE ANTIBIOTICS) (Verified Allergy, Unknown, 07/11/17) SULFAMETHOXAZOLE (Verified Allergy, Unknown, 07/11/17) TRIMETHOPRIM (Verified Allergy, Unknown, 07/11/17) Medication History Scheduled Acetaminophen* (Tylenol Extra Strength*), 650 MG ORAL Q4HR, (Reported) Al Hydroxide/mg Hydroxide (Mag-Al Liquid), 30 ML ORAL Q6HR, (Reported) Ascorbic Acid* (Vitamin C*), 500 MG ORAL DAILY, (Reported) Aspirin (Aspirin EC), 81 MG ORAL DAILY, (Reported) Calcium Carbonate (Calcium), 500 MG PO DAILY, (Reported) Cholecalciferol (Vitamin D3)* (Vitamin D*), 1,000 UNIT ORAL DAILY, (Reported) Cranberry (Cranberry), 400 MG PO BEDTIME, (Reported) Cyanocobalamin (Vitamin B-12) (Vitamin B12), 2,500 MCG PO DAILY, (Reported) Dextrose 50 % In Water (Dextrose 50%-Water Vial), ML IV PRN, (Reported) Donepezil Hcl* (Donepezil Hcl*), 10 MG ORAL HS, (Reported) Levodopa/Carbidopa (Carbidopa-Levodopa 25-100 Tab), 1 TAB ORAL THREE TIMES A DAY Lorazepam* (Ativan*), 0.5 MG IV Q4H, (Reported) Mirtazapine* (Mirtazapine*), 15 MG ORAL BEDTIME, (Reported) Morphine Sulfate (Morphine Sulfate 1 mg/ml Vial), 1 MG IV Q4HR, (Reported) Mv-Mn/Lutein/Zeax/Bilber/Hb277 (Macular Health Formula Capsule), 1 EACH PO DAILY , (Reported) [place]-3 Fatty Acids/Fish Oil ([place] 3 1,000 Mg Softgel), 1 EACH PO DAILY, ( Reported) Omeprazole (Omeprazole), 20 MG ORAL DAILY, (Reported) Scheduled PRN Loperamide HCl (Imodium A-D), 2 MG PO EVERY 6 HOURS PRN for Diarrhea, (Reported) Ondansetron* (Zofran*), 4 MG IV Q6H PRN for Nausea & Vomiting, (Reported) Polyethylene Glycol 3350* (Polyethylene Glycol 3350*), 17 GM ORAL BEDTIME PRN for Constipation, (Reported) Zolpidem Tartrate* (Ambien*), 5 MG ORAL BEDTIME PRN for Insomnia, (Reported) Miscellaneous Medications Unable to Obtain Medications (Unable To Obtain Meds), (Reported) Patient History History Provided By: Patient, Family Member, Medical Record Healthcare decision maker Resuscitation status Do Not Resuscitate Advanced Directive on File Daughter Jenn Lin Past Medical/Surgical History Past Medical/Surgical History: (1) GERD (gastroesophageal reflux disease) (2) Parkinsons disease (3) Dementia (4) Weakness (5) FTT (failure to thrive) in adult (6) Severe bilateral hip osteoarthritis (7) Severe protein-calorie malnutrition Family History Family History: Patient reports no known family medical history. Social History Social History: (1) Lives in assisted living facility Review of Systems ROS Narrative CONSTITUTIONAL: No weight loss, + fever at [facility], denied chills, weakness or fatigue. HEENT: Eyes: No visual loss, blurred vision, double vision or yellow sclerae. Ears, Nose, Throat: No hearing loss, sneezing, congestion, runny nose or sore throat. SKIN: No rash or itching. CARDIOVASCULAR: No chest pain, chest pressure or chest discomfort. No palpitations or edema. RESPIRATORY: No shortness of breath, + dry cough, no sputum. GASTROINTESTINAL: No anorexia, nausea, vomiting or diarrhea. No abdominal pain or blood. NEUROLOGICAL: No headache, dizziness, syncope, paralysis, ataxia, numbness or tingling in the extremities. No change in bowel or bladder control. MUSCULOSKELETAL: No muscle, back pain, joint pain or stiffness. HEMATOLOGIC: No anemia, bleeding or bruising. LYMPHATICS: No enlarged nodes. No history of splenectomy. PSYCHIATRIC: No history of depression or anxiety. ENDOCRINOLOGIC: No reports of sweating, cold or heat intolerance. No polyuria or polydipsia. ALLERGIES: No history of asthma, hives, eczema or rhinitis. Physical Exam Physical Exam Narrative General: alert, cooperative, no distress, appears stated age Head: normocephalic, without obvious abnormality, atraumatic Eyes: conjunctivae/corneas clear. PERRL, EOM's intact Throat: lips, mucosa, and tongue normal. MMM Neck: supple, symmetrical, trachea midline, and no JVD Lungs: clear to auscultation bilaterally Heart: regular rate and rhythm, S1, S2 normal, no murmur, click, rub or gallop Abdomen: soft, non-tender, non-distended, bowel sounds normal; no masses or organomegaly Extremities: extremities normal, atraumatic, no cyanosis or edema Pulses: 2+ and symmetric Skin: skin color, texture, turgor normal; no rashes or lesions Neurologic: grossly normal, no focal deficits Last 24 Hour Vital Signs Date Time Temp Pulse Resp B/P (MAP) Pulse Ox O2 Delivery O2 Flow Rate FiO2 12/09/18 12:00 98.0 87 16 140/69 (92) 94 12/09/18 08:00 100.0 87 16 123/65 (84) 93 12/09/18 04:00 98.7 67 18 140/69 (92) 93 12/09/18 00:00 98.1 86 18 137/66 (89) 93 12/08/18 21:10 88 16 97 Room Air 21 12/08/18 21:00 Room Air 12/08/18 14:39 97.8 82 18 132/65 (87) 93 12/08/18 14:30 Room Air 12/08/18 14:27 97.8 79 20 123/45 96 Room Air Intake and Output 12/08/18 12/09/18 19:00 07:00 Intake Total 618 ml Balance 618 ml Intake Oral 118 ml IV Total 500 ml # Voids 2 Laboratory Tests Test 12/09/18 05:26 White Blood Count 17.5 K/UL (4.8-10.8) H Red Blood Count 3.21 M/UL (4.20-5.40) L Hemoglobin 9.8 G/DL (12.0-16.0) L Hematocrit 29.8 % (37.0-47.0) L Mean Corpuscular Volume 93 FL (80-99) Mean Corpuscular Hemoglobin 30.6 PG (27.0-31.0) Mean Corpuscular Hemoglobin Concent 32.8 G/DL (32.0-36.0) Red Cell Distribution Width 12.4 % (11.6-14.8) Platelet Count 436 K/UL (150-450) Mean Platelet Volume 6.4 FL (6.5-10.1) L Neutrophils (%) (Auto) % (45.0-75.0) Lymphocytes (%) (Auto) % (20.0-45.0) Monocytes (%) (Auto) % (1.0-10.0) Eosinophils (%) (Auto) % (0.0-3.0) Basophils (%) (Auto) % (0.0-2.0) Differential Total Cells Counted 100 Neutrophils % (Manual) 88 % (45-75) H Lymphocytes % (Manual) 5 % (20-45) L Monocytes % (Manual) 5 % (1-10) Eosinophils % (Manual) 1 % (0-3) Basophils % (Manual) 1 % (0-2) Band Neutrophils 0 % (0-8) Platelet Estimate Adequate Platelet Morphology Normal Anisocytosis 1+ Sodium Level 142 MMOL/L (136-145) Potassium Level 3.5 MMOL/L (3.5-5.1) Chloride Level 106 MMOL/L (98-107) Carbon Dioxide Level 26 MMOL/L (21-32) Anion Gap 10 mmol/L (5-15) Blood Urea Nitrogen 14 mg/dL (7-18) Creatinine 0.7 MG/DL (0.55-1.30) Estimat Glomerular Filtration Rate mL/min (>60) Glucose Level 88 MG/DL (74-106) Calcium Level 8.6 MG/DL (8.5-10.1) Magnesium Level 1.7 MG/DL (1.8-2.4) L Pro-B-Type Natriuretic Peptide 1389 pg/mL (0-125) H Height (Feet): 5 Height (Inches): 4.00 Weight (Pounds): 120 Medications Current Medications Medications (Trade) Dose Ordered Sig/Mary Route PRN Reason Start Time Stop Time Status Last Admin Dose Admin Acetaminophen (Tylenol) 650 mg Q4H PRN ORAL Mild Pain (Pain Scale 1-3) 12/08/18 15:45 01/07/19 15:44 Acetaminophen (Tylenol) 650 mg Q4H PRN ORAL fever 12/08/18 15:45 01/07/19 15:44 Al Hydroxide/Mg Hydroxide (Mylanta II) 30 ml Q6H PRN ORAL dyspepsia 12/08/18 15:45 01/07/19 15:44 Albuterol/ Ipratropium (Albuterol/ Ipratropium) 3 ml Q4H PRN HHN Shortness of Breath 12/08/18 15:45 12/13/18 15:44 Aspirin (Ecotrin) 81 mg DAILY ORAL 12/09/18 09:00 01/08/19 08:59 12/09/18 08:13 Azithromycin (Zithromax) 250 mg DAILY ORAL 12/09/18 09:00 12/16/18 08:59 12/09/18 08:13 Bisacodyl (Dulcolax) 10 mg HSPRN PRN RECTAL Constipation 12/08/18 15:45 01/07/19 15:44 Carbidopa/Levodopa (Sinemet 25/100) 1 tab THREE TIMES A DAY ORAL 12/08/18 18:00 01/07/19 17:59 12/09/18 13:54 Dextrose (Dextrose 50%) 25 ml Q30M PRN IV Hypoglycemia 12/08/18 15:45 01/07/19 15:44 Dextrose (Dextrose 50%) 50 ml Q30M PRN IV Hypoglycemia 12/08/18 15:45 01/07/19 15:44 Diphenhydramine HCl (Benadryl) 25 mg Q6H PRN ORAL Itching/Pruritis 12/08/18 15:45 01/07/19 15:44 Docusate Sodium (Colace) 100 mg EVERY 12 HOURS ORAL 12/08/18 21:00 01/07/19 20:59 12/09/18 08:13 Donepezil HCl (Aricept) 10 mg DAILY ORAL 12/09/18 09:00 01/08/19 08:59 12/09/18 08:13 Heparin Sodium (Porcine) (Heparin 5000 units/ml) 5,000 units EVERY 8 HOURS SUBQ 12/08/18 22:00 01/07/19 21:59 12/09/18 13:55 Magnesium Hydroxide (Mom) 30 ml HSPRN PRN ORAL Constipation 12/08/18 15:45 01/07/19 15:44 Magnesium Sulfate 100 ml @ 100 mls/hr Q1H IVPB 12/09/18 14:30 12/09/18 16:29 Mirtazapine (Remeron) 15 mg BEDTIME ORAL 12/08/18 21:00 01/07/19 20:59 12/08/18 20:26 Morphine Sulfate (Morphine Sulfate) 2 mg Q6H PRN IVP Moderate Pain (Pain Scale 4-6) 12/08/18 15:45 12/15/18 15:44 Morphine Sulfate (Morphine Sulfate) 4 mg Q6H PRN IVP Severe Pain (Pain Scale 7-10) 12/08/18 15:45 12/15/18 15:44 Nitroglycerin (Ntg) 0.4 mg Q5M X 3 DOSES PRN SL Prn Chest Pain 12/08/18 15:45 01/07/19 15:44 Ondansetron HCl (Zofran) 4 mg Q6H PRN IVP Nausea & Vomiting 12/08/18 15:45 01/07/19 15:44 Piperacillin Sod/ Tazobactam Sod 3.375 gm/Dextrose 100 ml @ 25 mls/hr Q8H IVPB 12/09/18 07:30 12/16/18 07:29 12/09/18 07:50 Polyethylene Glycol (Miralax) 17 gm HSPRN PRN ORAL Constipation 12/08/18 15:45 01/07/19 15:44 Sodium Chloride 1,000 ml @ 75 mls/hr [id number] IV 12/08/18 16:00 01/07/19 15:59 12/08/18 17:18 Temazepam (Restoril) 15 mg HSPRN PRN ORAL Insomnia 12/08/18 15:45 12/15/18 15:44 Vancomycin HCl (Vanco rx to dose) 1 ea DAILY PRN MISC Per rx protocol 12/08/18 15:45 01/07/19 15:44 Vancomycin HCl 500 mg/Dextrose 110 ml @ 110 mls/hr Q12HR@0600,1800 IVPB 12/08/18 18:00 12/13/18 17:59 12/09/18 05:32 Assessment/Plan Assessment/Plan: 83 y/o female INTERMEDIATE resident, presenting with fever found to have multifocal healthcare associated pneumonia, now on broad spectrum IV abx #Sepsis due to Healthcare Associated pneumonia #Multifocal L sided infiltrates #Lung nodules - Apprec pulm input - No need for workup of lung nodules - Vanco/zosyn/azithro - Supp resp care - Gentle IV fluids - Aspiration precautions #Sepsis due to UTI - Cont IV abx per ID - f/u urine cx #Severe Protein Calorie Malnutrition - Monitor nutritional status - Nutrition consult #Hypomagnesemia - replete Mag #parkinsons disease/Dementia - Cont carbidopa/levodopa - Cont aricept DVT ppx: hep subq Code: SHALOM/Tracee Sun MD Dec 09, 2018 14:29
[2018-12-09 16:00] VITALS: BP 130/66
--- NOTE | 2018-12-09 16:19 | NUR ---
PT Note PT tomas completed, treatment initiated. Patient is cooperative but c/o bilateral hip pain and c/o fatigue limits her mobility and activity tolerance. Patient can benefit from PT services to increase her muscle strength to improve her functional mobility to enable her to return to [facility]. Addendum: 12/09/18 at 1620 by JULIEN URRUTIA PT Amended: Links added.
--- NOTE | 2018-12-09 16:45 | NUR ---
NURSE NOTES: Educated patient and family at bedside regarding aspiration precautions, sign in room. Instructed no straws, keep HOB elevated with meals and PO fluid intake, verbalized understanding. Family aware ST evaluation to take place tomorrow.
--- NOTE | 2018-12-09 19:15 | NUR ---
HAND-OFF: Report given to Lexa MAHMOOD.
--- NOTE | 2018-12-09 19:30 | NUR ---
NURSE NOTES: Report taken from TIMOTEO Santana. Patient is aslee, family members at bedside. Arousable to name and light touch, A&Ox3, tends to forget details as to why she is here. IV site c/d/i and patent, running NS and antibiotics. Skin is thin but intact, small area of redness on backside, monitor. Sputum culture was not able to be collected, will attempt tonight. Speech therapy consults in the AM. Bed in lowest position call light within reach.
[2018-12-09 20:00] VITALS: BP 127/63
[2018-12-09] MEDS ORDERED: Vancomycin 500mg/D5W 110ml IVPB SCH ×2 (20:00)
[2018-12-10] VITALS: BP 128/64
[2018-12-10 04:00] VITALS: BP 138/74
[2018-12-10] MEDS: Heparin 5000 units/ml inj SUBQ SCH ×3 (05:41→21:10)
--- NOTE | 2018-12-10 07:28 | NUR ---
HAND-OFF: Report given to TIMOTEO Lyles. Patient awake and in bed, VS stable.
--- NOTE | 2018-12-10 07:30 | NUR ---
NURSE NOTES: Patient is in bed asleep. Stable. Daughter is at bedside. Encouraged to use call light for assistance. Patient is in bed in locked and lowest position with call light within reach. All safety measures provided. Will continue to monitor.
[2018-12-10 08:00] VITALS: BP 139/69
[2018-12-10] MEDS: Aspirin EC 81mg tab ORAL SCH (09:05)
[2018-12-10] MEDS: Docusate 100mg cap ORAL SCH ×2 (09:06→21:09)
[2018-12-10] MEDS: Azithromycin 250mg tab ORAL SCH (09:06)
[2018-12-10] MEDS: Donepezil 10mg tab ORAL SCH (09:06)
[2018-12-10] MEDS: Levodopa/Carbidopa 25/100 tab ORAL SCH ×3 (09:06→18:26)
[2018-12-10] MEDS ORDERED: Vancomycin 1gm/D5W 275ml IVPB SCH ×2 (10:00)
[2018-12-10] MEDS: Vancomycin 1gm/D5W 275ml IVPB SCH ×4 (10:19→20:38)
--- NOTE | 2018-12-10 11:12 | NUR ---
RADIOLOGY DEPT., CHEST X-RAY DONE.-P.DYE
--- NOTE | 2018-12-10 11:41 | NUR ---
NURSE NOTES: Unable to collect sputum. Dr Lunsford aware. Will continue to monitor.
--- NOTE | 2018-12-10 11:58 | Consultation ---
Consult Note Consult Note Hematology / Oncology Consultation DATE OF CONSULTATION: 12/10/2018 RIVKA GIBSON: Dr. Roberson REASON FOR REFERRAL: Leukocytosis History of Present Illness: This is a 83-year-old female [facility]. Daughter who is the P.O.A Collen is at bedside who provides most of the history, she states that pt had fever x1 day, with cough for several days. She has history prior pneumonia and prior UTI. She also reports decrease in appeitie and weight loss. Denies chest pain or shortness of breath. Pt was once told that she had lung cancer in 2004 by due to an abnormal CXR however never had a bx to confirm. Primary history of Parkinsons, Dementia and Weakness, tobacco use for 20 years. She is being followed by pulmonary and ID. CT Chest was done in 2017. Heme/Onc was consulted for leukocytosis. Past Medical History: As stated above Family History: Non contributory Surgical history: denies Social History: Tobacco use for 20 years, social drinking, no drug abuse. Grew up in [place]. 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 Allergies: DICLOFENAC, SULFA, SULFAMETHOXAZOLE ,TRIMETHOPRIM Review of Systems All Other Systems: negative except mentioned in HPI PE: Head: normocephalic, atraumatic Eyes: bilateral eye normal inspection, bilateral eye PERRL ENT: hearing grossly normal, normal pharynx, no angioedema, normal voice Neck: full range of motion, supple/symm/no masses Respiratory: chest non-tender, lungs clear, crackles, speaking full sentences Cardiovascular: regular rate, rhythm, no edema Gastrointestinal: normal bowel sounds, non tender, soft, non-distended, no guarding, no rebound Genitourinary: normal inspection, no CVA tenderness Musculoskeletal: back normal, gait/station normal, normal range of motion, non- tender Neurologic: alert, oriented x2, + tremors bilat hands Psychiatric: judgement/insight normal, memory normal, mood/affect normal, no suicidal/homicidal ideation Assessment/Plan ASSESSMENT AND REC'S 1.Leukocytosis/elevated white blood cell count, likely due to Multifocal PNA --> have reviewed peripheral smear --> On antibiotics, followed by ID team, Appreciate recs, --> CXR reviewed pathcy Multifocal PNA, CT Chest reviewed from 06/2017 --> continue to monitor 2. Pulmonary Lung Nodule --> Pulmo following appreciate rec's. --> 12/08/18 CXR: Dense patchy LLL > R infiltrates 06/2017 CT:Impression: Multiple bilateral nodular and irregular parenchymal opacities, as described above. Association with bronchiectasis suggests that to large extent these represent chronic postinflammatory lesions. However, some lesions, particularly in the right upper lobe and left lower lobe are more masslike in appearance. This raises concern for neoplasm, possibly multifocal. Note that some of the lesions also appear cavitary, although this appearance may be just due to fibrosis surrounding bronchiectatic bronchi Mild hyperinflation suggestive of COPD Small to moderate sliding-type hiatal hernia Small anterior pericardial effusion Incidental findings of left renal parapelvic cysts, degenerative spondylosis --> Daughter stated history of being diagnosed with Lung cancer in 2004, however no confrimation and diagnosis was incorrect we will order CEA level for now. --> Per Pulmo no further work-up due to GOC..has been discussed with daughter. POLST Reviewed with daughter DNR, Comfort care. 3. PNA --> On abx treatment and ID and Pulmo following. --> Aspirations precuations 4.Parkinson's Disease --> Bilat hand tremors --> continue current care 5. Dementia --> Daughter Oscar P.O.A continue supportive care 6. DJD 7..GERD The timing of this note does not necessarily reflect the time of the patient was seen. GREATLY APPRECIATE CONSULTATION. Brandy Saldivar NP Dec 10, 2018 11:58
[2018-12-10 12:00] VITALS: BP 136/68
--- NOTE | 2018-12-10 12:09 | Pulmonology Progress Note ---
Assessment/Plan Problems: (1) Pneumonia (2) nodular infiltrate of lung (3) UTI (urinary tract infection) (4) Acute encephalopathy (5) Parkinsons disease (6) Dementia (7) Severe protein-calorie malnutrition (8) Severe bilateral hip osteoarthritis (9) FTT (failure to thrive) in adult (10) GERD (gastroesophageal reflux disease) Assessment/Plan ASSESSMENT: * Healthcare associated pneumonia (Dense LLL > R infiltrates in an [facility] resident) * H/O bronchiectasis and scattered bilateral pulmonary nodules, seen 06/2017, some masslike * Know pulmonary nodules, upto @ least 10 years, previously worked up and deemed to be non-cancerous * PD, dementia * Dysphagia * DJD * GERD, small HH * DNAR PLAN: * Optimize pulmonary hygiene/mobilize as tolerated * PRN O2 * PRN HHN's * Abx (Vanco, Zosyn, Azithro) per ID * Aspiration precautions, REVERSAL PRINT INSPECTOR eval * Monitor volumes and renal function * DVT Px: Hep SQ * DNAR, no escalation of care * Would not work up underlying lung nodules given GOC, discussed with daughter @ bedside Subjective Allergies: Coded Allergies: DICLOFENAC (Verified Allergy, Unknown, 07/11/17) SULFA (SULFONAMIDE ANTIBIOTICS) (Verified Allergy, Unknown, 07/11/17) SULFAMETHOXAZOLE (Verified Allergy, Unknown, 07/11/17) TRIMETHOPRIM (Verified Allergy, Unknown, 07/11/17) Subjective AFVSS on RA Less cough and SOB no wheezing MS @ baseline per daughter Objective Last 24 Hour Vital Signs Date Time Temp Pulse Resp B/P (MAP) Pulse Ox O2 Delivery O2 Flow Rate FiO2 12/10/18 09:00 Room Air 12/10/18 08:00 99.8 85 20 139/69 (92) 92 12/10/18 07:00 80 16 94 Room Air 21 12/10/18 04:00 98.1 77 20 138/74 (95) 93 12/10/18 00:00 98.1 78 16 128/64 (85) 93 12/09/18 23:40 83 16 93 Room Air 21 12/09/18 21:00 Room Air 12/09/18 20:00 97.4 79 16 127/63 (84) 92 12/09/18 16:00 98.1 81 16 130/66 (87) 93 Intake and Output 12/09/18 12/10/18 19:00 07:00 Intake Total 1014 ml Balance 1014 ml Intake Oral 714 ml IV Total 300 ml # Voids 2 General Appearance: WD/WN, cachetic HEENT: normocephalic, atraumatic, anicteric, mucous membranes moist Respiratory/Chest: chest wall non-tender, rhonchi Cardiovascular: normal peripheral pulses, normal rate, regular rhythm Abdomen: normal bowel sounds, soft, non tender, no organomegaly, non distended , no mass Extremities: no cyanosis, no clubbing, no edema Microbiology Date/Time Source Procedure Growth Status 12/08/18 14:00 Nasal Nares MRSA Culture - Final NO METHICILLIN RESISTANT STAPH AUREUS... Complete 12/08/18 13:12 Urine,Clean Catch Urine Culture - Preliminary Gram Negative Bacillus 1 Resulted 12/08/18 14:00 Rectum VRE Culture - Final NO VANCOMYCIN RESISTANT ENTEROCOCCUS ... Complete 12/08/18 14:00 Rectum - Final NO CARBAPENEM-RESISTANT ENTEROBACTERI... Complete Laboratory Tests 12/10/18 08:30: Carcinoembryonic Antigen [Pending], Vancomycin Level Trough 5.3 Current Medications Medications (Trade) Dose Ordered Sig/Mary Route PRN Reason Start Time Stop Time Status Last Admin Dose Admin Acetaminophen (Tylenol) 650 mg Q4H PRN ORAL Mild Pain (Pain Scale 1-3) 12/08/18 15:45 01/07/19 15:44 Acetaminophen (Tylenol) 650 mg Q4H PRN ORAL fever 12/08/18 15:45 01/07/19 15:44 Al Hydroxide/Mg Hydroxide (Mylanta II) 30 ml Q6H PRN ORAL dyspepsia 12/08/18 15:45 01/07/19 15:44 Albuterol/ Ipratropium (Albuterol/ Ipratropium) 3 ml Q4H PRN HHN Shortness of Breath 12/08/18 15:45 12/13/18 15:44 Aspirin (Ecotrin) 81 mg DAILY ORAL 12/09/18 09:00 01/08/19 08:59 12/10/18 09:05 Azithromycin (Zithromax) 250 mg DAILY ORAL 12/09/18 09:00 12/16/18 08:59 12/10/18 09:06 Bisacodyl (Dulcolax) 10 mg HSPRN PRN RECTAL Constipation 12/08/18 15:45 01/07/19 15:44 Carbidopa/Levodopa (Sinemet 25/100) 1 tab THREE TIMES A DAY ORAL 12/08/18 18:00 01/07/19 17:59 12/10/18 09:06 Dextrose (Dextrose 50%) 25 ml Q30M PRN IV Hypoglycemia 12/08/18 15:45 01/07/19 15:44 Dextrose (Dextrose 50%) 50 ml Q30M PRN IV Hypoglycemia 12/08/18 15:45 01/07/19 15:44 Diphenhydramine HCl (Benadryl) 25 mg Q6H PRN ORAL Itching/Pruritis 12/08/18 15:45 01/07/19 15:44 Docusate Sodium (Colace) 100 mg EVERY 12 HOURS ORAL 12/08/18 21:00 01/07/19 20:59 12/10/18 09:06 Donepezil HCl (Aricept) 10 mg DAILY ORAL 12/09/18 09:00 01/08/19 08:59 12/10/18 09:06 Heparin Sodium (Porcine) (Heparin 5000 units/ml) 5,000 units EVERY 8 HOURS SUBQ 12/08/18 22:00 01/07/19 21:59 12/10/18 05:41 Magnesium Hydroxide (Mom) 30 ml HSPRN PRN ORAL Constipation 12/08/18 15:45 01/07/19 15:44 Mirtazapine (Remeron) 15 mg BEDTIME ORAL 12/08/18 21:00 01/07/19 20:59 12/09/18 20:08 Morphine Sulfate (Morphine Sulfate) 2 mg Q6H PRN IVP Moderate Pain (Pain Scale 4-6) 12/08/18 15:45 12/15/18 15:44 Morphine Sulfate (Morphine Sulfate) 4 mg Q6H PRN IVP Severe Pain (Pain Scale 7-10) 12/08/18 15:45 12/15/18 15:44 Nitroglycerin (Ntg) 0.4 mg Q5M X 3 DOSES PRN SL Prn Chest Pain 12/08/18 15:45 01/07/19 15:44 Ondansetron HCl (Zofran) 4 mg Q6H PRN IVP Nausea & Vomiting 12/08/18 15:45 01/07/19 15:44 Piperacillin Sod/ Tazobactam Sod 3.375 gm/Dextrose 100 ml @ 25 mls/hr Q8H IVPB 12/09/18 07:30 12/16/18 07:29 12/10/18 07:45 Polyethylene Glycol (Miralax) 17 gm HSPRN PRN ORAL Constipation 12/08/18 15:45 01/07/19 15:44 Sodium Chloride 1,000 ml @ 75 mls/hr [id number] IV 12/08/18 16:00 01/07/19 15:59 12/10/18 07:46 Temazepam (Restoril) 15 mg HSPRN PRN ORAL Insomnia 12/08/18 15:45 12/15/18 15:44 Vancomycin HCl (Vanco rx to dose) 1 ea DAILY PRN MISC Per rx protocol 12/08/18 15:45 01/07/19 15:44 Vancomycin HCl 1 gm/Dextrose 275 ml @ 183.708 mls/hr Q12HR@0800,2000 IVPB 12/10/18 10:00 12/15/18 09:59 12/10/18 10:19 Chris Lunsford MD Dec 10, 2018 12:09
--- NOTE | 2018-12-10 12:24 | NUR ---
CASE MANAGEMENT:REVIEW 12/10/18 SI: ACUTE ENCEPHALOPATHY PNA. UTI. FTT 99.8 85 20 139/69 92% ON RA IS: IV VANCOMYCIN Q12 IV ZOSYN Q8HRS ASA PO QD AZITHROMYCIN PO QD IVF@75/HR : MED/SURG STATUS 3 EAST DCP: FROM [facility]
--- NOTE | 2018-12-10 12:41 | Infectious Diseases Prog Note ---
Assessment/Plan Assessment/Plan A) 1) pneumonia - ? aspiration, ? cap, gram neg uti, sepsis, leukocytosis, fevers 2) Parkinson's dx, dementia, djd, gerd, HH, anemia, oa, ftt, mtn 3) allergies - sulfa, dicofenac, bactrim 4) fh-nc, mar noted, d/w RN, sh-negative 5) notes and records noted P) 1) zosyn, vancomycin, azithromycin 2) check cultures, labs, chest x-ray and serology 3) clinically better 4) continue treatment per primary team and consultants 5) d/w patient and daughter 6) will f/u Subjective Constitutional: Denies: fever HEENT: Reports: congestion - less Respiratory: Denies: shortness of breath Cardiovascular: Denies: chest pain Gastrointestinal/Abdominal: Denies: nausea, vomiting, diarrhea Genitourinary: Reports: other - no suazo, no cva pain Neurologic: Denies: headache Psychiatric: Denies: depression Skin: Denies: rash Hematologic: Denies: bleeding Musculoskeletal: Denies: pain Allergies: Coded Allergies: DICLOFENAC (Verified Allergy, Unknown, 07/11/17) SULFA (SULFONAMIDE ANTIBIOTICS) (Verified Allergy, Unknown, 07/11/17) SULFAMETHOXAZOLE (Verified Allergy, Unknown, 07/11/17) TRIMETHOPRIM (Verified Allergy, Unknown, 07/11/17) Objective Vital Signs Last 24 Hour Vital Signs Date Time Temp Pulse Resp B/P (MAP) Pulse Ox O2 Delivery O2 Flow Rate FiO2 12/10/18 12:00 98.5 79 18 136/68 (90) 93 12/10/18 09:00 Room Air 12/10/18 08:00 99.8 85 20 139/69 (92) 92 12/10/18 07:00 80 16 94 Room Air 21 12/10/18 04:00 98.1 77 20 138/74 (95) 93 12/10/18 00:00 98.1 78 16 128/64 (85) 93 12/09/18 23:40 83 16 93 Room Air 21 12/09/18 21:00 Room Air 12/09/18 20:00 97.4 79 16 127/63 (84) 92 12/09/18 16:00 98.1 81 16 130/66 (87) 93 Height (Feet): 5 Height (Inches): 4.00 Weight (Pounds): 120 General Appearance: no acute distress HEENT: normocephalic, atraumatic, anicteric, mucous membranes moist Respiratory/Chest: lungs clear, normal breath sounds, no respiratory distress, no accessory muscle use Cardiovascular: normal rate, regular rhythm, no gallop/murmur, no JVD Abdomen: normal bowel sounds, soft, non tender, no organomegaly, non distended Genitourinary: other - no suazo Extremities: no cyanosis Skin: no rash Neurologic/Psychiatric: terrazzo polisher II-XII grossly normal, alert, oriented x 3, responsive Lymphatic: no neck adenopathy Musculoskeletal: no effusion Objective Chest x-ray - 12/08/18 - FINDINGS: Lungs: Patchy consolidation throughout the left mid and lower lung and mild consolidation in bilateral lung apices, concerning for multifocal pneumonia. Pleural space: Unremarkable. The costophrenic angles are sharp. No visible pneumothorax. Heart: Unremarkable. No cardiomegaly. Mediastinum: Unremarkable. Bones/joints: Degenerative changes of the visualized shoulder joints and spine. Vasculature: Atherosclerotic calcifications are noted within the aortic arch. Tubes, lines and devices: Telemetry leads overlie the thorax. IMPRESSION: Patchy consolidation throughout the left mid and lower lung and mild consolidation in bilateral lung apices, concerning for multifocal pneumonia. Microbiology Date/Time Source Procedure Growth Status 12/08/18 14:00 Nasal Nares MRSA Culture - Final NO METHICILLIN RESISTANT STAPH AUREUS... Complete 12/08/18 13:12 Urine,Clean Catch Urine Culture - Preliminary Gram Negative Bacillus 1 Resulted 12/08/18 14:00 Rectum VRE Culture - Final NO VANCOMYCIN RESISTANT ENTEROCOCCUS ... Complete 12/08/18 14:00 Rectum - Final NO CARBAPENEM-RESISTANT ENTEROBACTERI... Complete Labs Test 12/08/18 12:45 12/08/18 13:07 12/08/18 13:12 12/09/18 05:26 White Blood Count 18.8 K/UL (4.8-10.8) 17.5 K/UL (4.8-10.8) Red Blood Count 3.32 M/UL (4.20-5.40) 3.21 M/UL (4.20-5.40) Hemoglobin 10.1 G/DL (12.0-16.0) 9.8 G/DL (12.0-16.0) Hematocrit 31.0 % (37.0-47.0) 29.8 % (37.0-47.0) Mean Corpuscular Volume 93 FL (80-99) 93 FL (80-99) Mean Corpuscular Hemoglobin 30.2 PG (27.0-31.0) 30.6 PG (27.0-31.0) Mean Corpuscular Hemoglobin Concent 32.4 G/DL (32.0-36.0) 32.8 G/DL (32.0-36.0) Red Cell Distribution Width 12.5 % (11.6-14.8) 12.4 % (11.6-14.8) Platelet Count 433 K/UL (150-450) 436 K/UL (150-450) Mean Platelet Volume 6.3 FL (6.5-10.1) 6.4 FL (6.5-10.1) Neutrophils (%) (Auto) % (45.0-75.0) % (45.0-75.0) Lymphocytes (%) (Auto) % (20.0-45.0) % (20.0-45.0) Monocytes (%) (Auto) % (1.0-10.0) % (1.0-10.0) Eosinophils (%) (Auto) % (0.0-3.0) % (0.0-3.0) Basophils (%) (Auto) % (0.0-2.0) % (0.0-2.0) Differential Total Cells Counted 100 100 Neutrophils % (Manual) 92 % (45-75) 88 % (45-75) Lymphocytes % (Manual) 2 % (20-45) 5 % (20-45) Monocytes % (Manual) 6 % (1-10) 5 % (1-10) Eosinophils % (Manual) 0 % (0-3) 1 % (0-3) Basophils % (Manual) 0 % (0-2) 1 % (0-2) Band Neutrophils 0 % (0-8) 0 % (0-8) Platelet Estimate Adequate Adequate Platelet Morphology Normal Normal Hypochromasia 1+ Sodium Level 142 MMOL/L (136-145) 142 MMOL/L (136-145) Potassium Level 3.6 MMOL/L (3.5-5.1) 3.5 MMOL/L (3.5-5.1) Chloride Level 105 MMOL/L (98-107) 106 MMOL/L (98-107) Carbon Dioxide Level 27 MMOL/L (21-32) 26 MMOL/L (21-32) Anion Gap 11 mmol/L (5-15) 10 mmol/L (5-15) Blood Urea Nitrogen 21 mg/dL (7-18) 14 mg/dL (7-18) Creatinine 0.7 MG/DL (0.55-1.30) 0.7 MG/DL (0.55-1.30) Estimat Glomerular Filtration Rate mL/min (>60) mL/min (>60) Glucose Level 109 MG/DL (74-106) 88 MG/DL (74-106) Lactic Acid Level 0.90 mmol/L (0.4-2.0) Calcium Level 9.0 MG/DL (8.5-10.1) 8.6 MG/DL (8.5-10.1) Total Bilirubin 0.6 MG/DL (0.2-1.0) Aspartate Amino Transf (AST/SGOT) 20 U/L (15-37) Alanine Aminotransferase (ALT/SGPT) 7 U/L (12-78) Alkaline Phosphatase 164 U/L (46-116) Pro-B-Type Natriuretic Peptide 1578 pg/mL (0-125) 1389 pg/mL (0-125) Total Protein 5.8 G/DL (6.4-8.2) Albumin 2.1 G/DL (3.4-5.0) Globulin 3.7 g/dL Albumin/Globulin Ratio 0.6 (1.0-2.7) Urine Color Yellow Urine Appearance Clear Urine pH 5 (4.5-8.0) Urine Specific [place] 1.015 (1.005-1.035) Urine Protein 2+ (NEGATIVE) Urine Glucose (UA) Negative (NEGATIVE) Urine Ketones 1+ (NEGATIVE) Urine Blood 2+ (NEGATIVE) Urine Nitrite Positive (NEGATIVE) Urine Bilirubin Negative (NEGATIVE) Urine Urobilinogen 1 MG/DL (0.0-1.0) Urine Leukocyte Esterase 1+ (NEGATIVE) Urine RBC 2-4 /HPF (0 - 2) Urine WBC 5-10 /HPF (0 - 2) Urine Squamous Epithelial Cells Few /LPF (NONE/OCC) Urine Bacteria Moderate /HPF (NONE) Anisocytosis 1+ Magnesium Level 1.7 MG/DL (1.8-2.4) Test 12/10/18 08:30 Vancomycin Level Trough 5.3 ug/mL (5.0-12.0) Laboratory Tests Test 12/10/18 08:30 Carcinoembryonic Antigen Pending Vancomycin Level Trough 5.3 ug/mL (5.0-12.0) Current Medications Medications (Trade) Dose Ordered Sig/Mary Route PRN Reason Start Time Stop Time Status Last Admin Dose Admin Acetaminophen (Tylenol) 650 mg Q4H PRN ORAL Mild Pain (Pain Scale 1-3) 12/08/18 15:45 01/07/19 15:44 Acetaminophen (Tylenol) 650 mg Q4H PRN ORAL fever 12/08/18 15:45 01/07/19 15:44 Al Hydroxide/Mg Hydroxide (Mylanta II) 30 ml Q6H PRN ORAL dyspepsia 12/08/18 15:45 01/07/19 15:44 Albuterol/ Ipratropium (Albuterol/ Ipratropium) 3 ml Q4H PRN HHN Shortness of Breath 12/08/18 15:45 12/13/18 15:44 Aspirin (Ecotrin) 81 mg DAILY ORAL 12/09/18 09:00 01/08/19 08:59 12/10/18 09:05 Azithromycin (Zithromax) 250 mg DAILY ORAL 12/09/18 09:00 12/16/18 08:59 12/10/18 09:06 Bisacodyl (Dulcolax) 10 mg HSPRN PRN RECTAL Constipation 12/08/18 15:45 01/07/19 15:44 Carbidopa/Levodopa (Sinemet 25/100) 1 tab THREE TIMES A DAY ORAL 12/08/18 18:00 01/07/19 17:59 12/10/18 09:06 Dextrose (Dextrose 50%) 25 ml Q30M PRN IV Hypoglycemia 12/08/18 15:45 01/07/19 15:44 Dextrose (Dextrose 50%) 50 ml Q30M PRN IV Hypoglycemia 12/08/18 15:45 01/07/19 15:44 Diphenhydramine HCl (Benadryl) 25 mg Q6H PRN ORAL Itching/Pruritis 12/08/18 15:45 01/07/19 15:44 Docusate Sodium (Colace) 100 mg EVERY 12 HOURS ORAL 12/08/18 21:00 01/07/19 20:59 12/10/18 09:06 Donepezil HCl (Aricept) 10 mg DAILY ORAL 12/09/18 09:00 01/08/19 08:59 12/10/18 09:06 Heparin Sodium (Porcine) (Heparin 5000 units/ml) 5,000 units EVERY 8 HOURS SUBQ 12/08/18 22:00 01/07/19 21:59 12/10/18 05:41 Magnesium Hydroxide (Mom) 30 ml HSPRN PRN ORAL Constipation 12/08/18 15:45 01/07/19 15:44 Mirtazapine (Remeron) 15 mg BEDTIME ORAL 12/08/18 21:00 01/07/19 20:59 12/09/18 20:08 Morphine Sulfate (Morphine Sulfate) 2 mg Q6H PRN IVP Moderate Pain (Pain Scale 4-6) 12/08/18 15:45 12/15/18 15:44 Morphine Sulfate (Morphine Sulfate) 4 mg Q6H PRN IVP Severe Pain (Pain Scale 7-10) 12/08/18 15:45 12/15/18 15:44 Nitroglycerin (Ntg) 0.4 mg Q5M X 3 DOSES PRN SL Prn Chest Pain 12/08/18 15:45 01/07/19 15:44 Ondansetron HCl (Zofran) 4 mg Q6H PRN IVP Nausea & Vomiting 12/08/18 15:45 01/07/19 15:44 Piperacillin Sod/ Tazobactam Sod 3.375 gm/Dextrose 100 ml @ 25 mls/hr Q8H IVPB 12/09/18 07:30 12/16/18 07:29 12/10/18 07:45 Polyethylene Glycol (Miralax) 17 gm HSPRN PRN ORAL Constipation 12/08/18 15:45 01/07/19 15:44 Sodium Chloride 1,000 ml @ 75 mls/hr [id number] IV 12/08/18 16:00 01/07/19 15:59 12/10/18 07:46 Temazepam (Restoril) 15 mg HSPRN PRN ORAL Insomnia 12/08/18 15:45 12/15/18 15:44 Vancomycin HCl (Vanco rx to dose) 1 ea DAILY PRN MISC Per rx protocol 12/08/18 15:45 01/07/19 15:44 Vancomycin HCl 1 gm/Dextrose 275 ml @ 183.708 mls/hr Q12HR@0800,2000 IVPB 12/10/18 10:00 12/15/18 09:59 12/10/18 10:19 Hardy Alexander MD Dec 10, 2018 12:41
--- NOTE | 2018-12-10 12:55 | Diagnostic Imaging Report ---
Indication: Dyspnea Comparison: 12/08/2018 A single view chest radiograph was obtained. Findings: Infiltrates noted within the left mid lung, left lung base and right upper lobe. Some of the areas appear nodular especially in the right upper lobe. There is evidence of a left subpulmonic effusion. Heart size is stable. IMPRESSION: Relatively stable appearance with bilateral infiltrates. While probably inflammatory/infectious, neoplasm is not excludable as some of the densities are nodular. Consider follow-up evaluation with CT.
--- NOTE | 2018-12-10 13:46 | NUR ---
SWALLOW/SPEECH THERAPY NOTE: REFERRED BY DR BURRIS FOR SWALLOW EVAL,SEE FULL EVAL IN ST [facility]ARE ACTIVITY SECTION. DYSPHAGIA RISK FACTORS FOR THIS 83 Y.O.F.: ACUTE ISSUES: PNA L LOWER LOBE (H/O BILAT PNA JUN 2017), WEAKNESS, COUGH, TEMPERATURE, FEVER. ACUTE ENCEPHALOPATHY. H/O PD (ON MEDS), DEMENTIA, ACUTE ENCEPHALOPATHY, ADULT FTT AND 20 LB WT LOSS JUN 2017, UNDERWEIGHT THEN. POLST, NO TF COMFORT CARE. [facility] AND THIN LIQUIDS AT ASSISTED LIVING FACILITY. AT [facility] HAD A MOD BARIUM SWALLOW STUDY WHICH REVEALED A SIGNIFICANT ORAL PREP AND OROPHARYNGEAL DYSPHAGIA (SEE REPORT OF 07/11/17). PER DTR AFTER [facility] STAY JUN 2017 WENT TO SNF AND WAS ON PUREED AND NECTAR THICK LIQUID DIET. DOESN'T TEND TO DRINK ENOUGH FLUIDS AND DISLIKES [facility] SOFT GROUND DIET. CURRENTLY ON A CARDIAC REG TEXTURE DIET AND THIN LIQUIDS BUT DTR CUTS UP HER MEAT FOR HER. ALERT, HAS A SOFT VOICE BUT ABLE TO COMMUNICATE SOME BASIC NEEDS. NEEDS CUES TO TAKE SMALLER BITES OF FOOD AND NOT GET UP (FALL RISK) DUE TO HER DEMENTIA. HER DTR STAYS WITH HER IN HOSPITAL TO ASSIST HER. PER RN, NO OVERT ASPIRATION WITH THIN LIQUIDS AND TAKES MEDIUM SIZE PILLS WHOLE W/O OVERT ASP WITH WATER. INTAKE IS POOR 10/15/50%. WAS GETTIING ENSURE AT FACILITY PER DTR. NO RD REPORT BUT ON ENSURE TID IN JUN 2017. 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 HAS CHRONIC THROAT CLEAR POST SWALLOWS AND SPONTANEOUS (ALSO HAS GERD AND POST NASAL DRIP FROM ALLERGIES PER DAUGHTER). OROMOTOR - TONGUE SLOWER MOVEMENTS WITH FAIR STRENGTH, LOWER LIP TREMOR NO ORAL SPILLAGE. GOOD DENTITION THIN LIQUDS - INCONSISTENT THROAT CLEAR AFTER THE SWALLOW WITH CUP DRINKING WITH FAIR HYOLARYNGEAL EXCURSION OVERALL, NO ORAL RESIDUE. PUREED TSP SLOWER (CHEWS UNNECESSARILY) BUT GROSSLY FUNCTIONAL WITH SMALL TSP (SELF-FEED) BUT COUGHED AFTER SWALLOW WITH LARGER AMOUNT. MASTICATED SOLIDS LONGER TRANSIT TIMES 15 SEC (NEEDS MORE TIME TO CHEW) BUT GROSSLY FUNCTIONAL SWALLOW. HAS SILENT ASPIRATION RISK POOR AND SLOWER INTAKE RECOMMENDATIONS: GIVEN PREFERENCE FOR QUALITY OF LIFE AND NO NONORAL FEEDING METHODS, CONTINUE WITH PO BUT DOWNGRADE TO CARDIAC MECH SOFT FINELY CHOPPED AND NECTAR THICK LIQUIDS WITH POSTED ASP AND REFLUX PRECAUTIONS AND ASSIST WITH MEALS. PER DTR, WANT ENSURE CHOCOLATE ONE CAN TID MOD BARIUM SWALLOW STUDY MBSS IP OR OP IF DC TO FURTHER ASSESS SWALLOW, DETERMINE SILENT ASP RISK/ETIOLOGY, AND ATTEMPT TRIAL TX TECHNIQUES. SKILLED SWALLOW MANAGEMENT AND TX AND COG-COM EVAL AND LSVT EDUCATED/TRAINED RN AND PATIENT'S DTR IN POSTED ASPIRATION AND REFLUX PRECAUTIONS. DTR WANTING PATIENT TO BE PUT ON GERD MEDS (OMEPRAZOLE OR PRILOSEC), D/W RN WHO WILL TELL M.D. D/W RNMD, PATIENT (CONFUSED), AND HER DTR.
[2018-12-10] MEDS ORDERED: Tubing IV Secondary IV ONE (14:17)
[2018-12-10] MEDS ORDERED: NS 275ml ONE (14:17)
[2018-12-10 16:00] VITALS: BP 154/85
--- NOTE | 2018-12-10 17:30 | Consultation ---
DATE OF CONSULTATION: 12/08/2018 INFECTIOUS DISEASE CONSULT CONSULTING PHYSICIAN: Hardy Alexander M.D. ATTENDING PHYSICIAN: Tracee Roberson M.D. REFERRING PHYSICIAN: Tracee Roberson M.D. REASON FOR CONSULTATION: Sepsis, pneumonia, fevers, leukocytosis, UTI. CHIEF COMPLAINT: The patient's chief complaint coming in to the hospital is fevers, cough, congestion, shortness of breath, pneumonia, leukocytosis, sepsis. Also, UTI. HISTORY OF PRESENT ILLNESS: This is a very pleasant 83-year-old female, who comes in to [facility] with cough, congestion, fevers. The patient was noted to have a white count of 18.8. On discussion with the patient's daughter at the bedside, the patient also had what sounds like weakness and altered mental status. The patient on chest x-ray has pneumonia. She is at risk for aspiration with history of Parkinson's and dementia. Infectious Disease consultation is requested for antibiotic management. I saw the patient and put her on Zosyn, Vanco, and azithromycin for pneumonia, UTI, and sepsis. MAR was noted. Orders noted. Notes were reviewed. REVIEW OF SYSTEMS: CONSTITUTIONAL: The patient has no central line or Naranjo. She has generalized fatigue, weakness. She came in with altered mental status and weakness and fever history. Currently she is responsive, but not a very good historian. HEAD AND NECK: No head pain, neck pain. CARDIAC: No chest pain or palpitations. GASTROINTESTINAL: No nausea, vomiting, abdominal pain, or diarrhea. GENITOURINARY: No CVA tenderness or Naranjo. PULMONARY: Mild cough, congestion, some sputum. No significant secretions or hemoptysis. SKIN: No rash or itching. EXTREMITIES: No extremity pain. NEUROLOGIC: No seizures. PAST MEDICAL HISTORY: The patient has a past medical history of Parkinson disease, dementia, aspiration risk. She also has history of degenerative joint disease, osteoarthritis. She has history of GERD, hiatal hernia, anemia, malnutrition, and failure to thrive. No history of diabetes or hypertension mentioned. ALLERGIES: Include sulfa drugs and Bactrim. Other allergy includes the name is diclofenac. SOCIAL HISTORY: Currently negative for smoking, alcohol, or drug use. Per the records looks like she is a former smoker. FAMILY HISTORY: Noncontributory. Negative for exposure to tuberculosis or cancer. MEDICATIONS: Upon reviewing the MAR, the patient is on following medications. She is on Vanco, Zosyn, azithromycin. She is on aspirin. She is on Aricept. She is on docusate, heparin, mirtazapine, carbidopa, sodium chloride, albuterol, acetaminophen. She is on morphine. She is on bisacodyl, magnesium hydroxide, polyethylene, Zofran, temazepam, diphenhydramine, nitroglycerin. Vanco, and Zosyn, and azithromycin antibiotics. Outside medications noted and reconciliated. PHYSICAL EXAMINATION: VITAL SIGNS: Temperature was 98.1, pulse rate 80, respiratory rate 14, blood pressure 114/58, saturation 91% on room air. Her respiratory rate did go as high as 22. Per the records, she has history of fevers. GENERAL: The patient is alert, responsive. Poor historian. Per the daughter, confused. Generally weak and altered mental status. HEAD AND NECK: Oral exam, no thrush. Eye exam, no icterus. Normocephalic. Neck is supple. No JVD. HEART: Regular. No obvious gallop or murmur. No friction rub. ABDOMEN: Soft. Positive bowel sounds. Nontender. No organomegaly. LUNGS: Bilateral rhonchi and rales. SKIN: No rash or dermatitis. MUSCULOSKELETAL: No effusion. No septic arthritis. Legs are without cellulitis. PERIPHERAL VASCULAR: No cyanosis. GENITOURINARY: No Naranjo. No CVA tenderness. LINES: Line sites without phlebitis. NEUROLOGIC: General weakness. Responsive. Nonfocal. LABORATORY AND DIAGNOSTIC DATA: White count 18.8, hemoglobin 10.1. Creatinine 0.7. Urinalysis had positive nitrite, 1+ leukocyte esterase, 5 to 10 white blood cells, and moderate bacteria. Cultures are pending. Sputum and urine culture have been ordered. Serology has been ordered for Legionella and mycoplasma. Chest x-ray showed the following. It showed patchy consolidation throughout the left mid and lower lung and consolidation of the bilateral lung apices concerning for multifocal pneumonia. Again, patchy consolidation throughout the left mid and lower lung and mild consolidation in the bilateral lungs concerning for multifocal pneumonia. ASSESSMENT AND PLAN: 1. The patient has what looks like pneumonia. The patient is high risk for aspiration pneumonia with history of Parkinson dementia. In addition, she is at risk for community-acquired pneumonia. I believe she lives in a board and care. She is at risk for both healthcare-acquired pneumonia and community-acquired pneumonia. Also looks like she has a urinary tract infection and likely complicated urinary tract infection with altered mental status. Continue Zosyn, Vanco, and azithromycin for gram-negative coverage, atypical pneumonia coverage, Streptococcus pneumoniae coverage, and aspiration coverage. Also MRSA coverage. Continue Vanco, Zosyn, and azithromycin to treat pneumonia, UTI, sepsis, leukocytosis with history of fevers. Continue antibiotics. Check cultures, labs, chest x-ray, and serology. 2. The patient has anemia. 3. The patient has history of Parkinson disease. 4. Dementia. 5. Aspiration risk. 6. Degenerative joint disease and osteoarthritis. 7. GERD. 8. Hiatal hernia. 9. Failure to thrive. 10. Malnutrition. 11. Allergies to sulfa, Bactrim, and also diclofenac. 12. Social history negative. 13. Family history noncontributory. 14. MAR was noted. 15. Case was discussed with RN. 16. Continue treatment per primary consultants. 17. Case discussed with the patient's daughter and the patient. Hardy Alexander M.D. DR: MARIBEL JOB#: [id number] CC:
--- NOTE | 2018-12-10 19:30 | NUR ---
HAND-OFF: Report given to Lexa MAHMOOD. Patient is stable.
--- NOTE | 2018-12-10 19:31 | NUR ---
NURSE NOTES: Report taken from TIMOTEO Lyles. Patient is asleep in bed, arousable by name and light touch. A&Ox3, family at bedside, patient does tend to forget own limitations. Seated upright per order of ST after meals. No signs of distress on room air. No complaints of pain. Iv insertion sites c/d/i and patent, running NS @ 75mls/hr and antibiotics. Small area of redness at sacrum, blanchable, continue to monitor. Patient very positive and more energetic than previous shift. Reviewed use of call duarte if needing assistance. Bed in lowest position, call light within reach.
[2018-12-10 20:00] VITALS: BP 126/63
--- NOTE | 2018-12-10 20:55 | General Progress Note ---
Assessment/Plan Assessment/Plan: 83 y/o female [facility] resident, presenting with fever found to have multifocal healthcare associated pneumonia, now on broad spectrum IV abx #Sepsis due to Healthcare Associated pneumonia #Multifocal L sided infiltrates #Lung nodules - Apprec pulm input - No need for workup of lung nodules - Vanco/zosyn/azithro - Supp resp care - Gentle IV fluids - Aspiration precautions #Sepsis due to UTI - Cont IV abx per ID - f/u urine cx #Severe Protein Calorie Malnutrition - Monitor nutritional status - Nutrition consult #Hypomagnesemia - replete Mag #parkinsons disease/Dementia - Cont carbidopa/levodopa - Cont aricept DVT ppx: hep subq Code: DNAR/DNI Subjective Date patient seen: Dec 10, 2018 Time patient seen: 09:00 Allergies: Coded Allergies: DICLOFENAC (Verified Allergy, Unknown, 07/11/17) SULFA (SULFONAMIDE ANTIBIOTICS) (Verified Allergy, Unknown, 07/11/17) SULFAMETHOXAZOLE (Verified Allergy, Unknown, 07/11/17) TRIMETHOPRIM (Verified Allergy, Unknown, 07/11/17) All Systems: reviewed and negative except above Subjective pt seen with daughter at bedside, no acute overnight events. pt doing well, states she feels better, has no complaints. Objective Last 24 Hour Vital Signs Date Time Temp Pulse Resp B/P (MAP) Pulse Ox O2 Delivery O2 Flow Rate FiO2 12/10/18 16:00 98.1 80 17 154/85 (108) 94 12/10/18 12:00 98.5 79 18 136/68 (90) 93 12/10/18 09:00 Room Air 12/10/18 08:00 99.8 85 20 139/69 (92) 92 12/10/18 07:00 80 16 94 Room Air 21 12/10/18 04:00 98.1 77 20 138/74 (95) 93 12/10/18 00:00 98.1 78 16 128/64 (85) 93 12/09/18 23:40 83 16 93 Room Air 21 12/09/18 21:00 Room Air Intake and Output 12/09/18 12/10/18 19:00 07:00 Intake Total 1014 ml Balance 1014 ml Intake Oral 714 ml IV Total 300 ml # Voids 2 Laboratory Tests 12/10/18 08:30: Carcinoembryonic Antigen [Pending], Vancomycin Level Trough 5.3 Height (Feet): 5 Height (Inches): 4.00 Weight (Pounds): 120 Objective General Appearance: well appearing, alert, mild distress Head: normocephalic, atraumatic Eyes: bilateral eye PERRL, bilateral eye EOMI ENT: hearing grossly normal, normal pharynx Neck: full range of motion, supple, no meningismus Respiratory: chest non-tender, respiratory distress, decreased breath sounds, accessory muscle use, rales Cardiovascular #1: regular rate, rhythm, no murmur Gastrointestinal: normal bowel sounds, non tender, no mass, no organomegaly, no bruit, non-distended Musculoskeletal: back normal, gait/station normal, normal range of motion, other - 2+ pitting edema Psychiatric: mood/affect normal Skin: warm/dry Taylor Lo MD Dec 10, 2018 20:55
[2018-12-11] VITALS: BP 131/64
--- NOTE | 2018-12-11 03:53 | Consultation ---
History of Present Illness General Date patient seen: Dec 11, 2018 Chief Complaint: AMS Referring physician: Dr. Miguelangel Das Present Illness HPI Ms. Elen Ely is a 83 year old woman,[facility] resident with a PMH of Parkinson's (on Sinemet), Dementia, chronic UTI/hematuria who was admitted to [facility] for fever and AMS secondary to UTI. While at [facility], she has been more confused, and at times, somewhat agitated as per her daughter. She has also had a CXR that was concerning for multifocal PNA. Allergies: Coded Allergies: DICLOFENAC (Verified Allergy, Unknown, 07/11/17) SULFA (SULFONAMIDE ANTIBIOTICS) (Verified Allergy, Unknown, 07/11/17) SULFAMETHOXAZOLE (Verified Allergy, Unknown, 07/11/17) TRIMETHOPRIM (Verified Allergy, Unknown, 07/11/17) Medication History Scheduled Acetaminophen* (Tylenol Extra Strength*), 650 MG ORAL Q4HR, (Reported) Al Hydroxide/mg Hydroxide (Mag-Al Liquid), 30 ML ORAL Q6HR, (Reported) Ascorbic Acid* (Vitamin C*), 500 MG ORAL DAILY, (Reported) Aspirin (Aspirin EC), 81 MG ORAL DAILY, (Reported) Calcium Carbonate (Calcium), 500 MG PO DAILY, (Reported) Cholecalciferol (Vitamin D3)* (Vitamin D*), 1,000 UNIT ORAL DAILY, (Reported) Cranberry (Cranberry), 400 MG PO BEDTIME, (Reported) Cyanocobalamin (Vitamin B-12) (Vitamin B12), 2,500 MCG PO DAILY, (Reported) Dextrose 50 % In Water (Dextrose 50%-Water Vial), ML IV PRN, (Reported) Donepezil Hcl* (Donepezil Hcl*), 10 MG ORAL HS, (Reported) Levodopa/Carbidopa (Carbidopa-Levodopa 25-100 Tab), 1 TAB ORAL THREE TIMES A DAY Lorazepam* (Ativan*), 0.5 MG IV Q4H, (Reported) Mirtazapine* (Mirtazapine*), 15 MG ORAL BEDTIME, (Reported) Morphine Sulfate (Morphine Sulfate 1 mg/ml Vial), 1 MG IV Q4HR, (Reported) Mv-Mn/Lutein/Zeax/Bilber/Hb277 (Macular Health Formula Capsule), 1 EACH PO DAILY , (Reported) [place]-3 Fatty Acids/Fish Oil ([place] 3 1,000 Mg Softgel), 1 EACH PO DAILY, ( Reported) Omeprazole (Omeprazole), 20 MG ORAL DAILY, (Reported) Scheduled PRN Loperamide HCl (Imodium A-D), 2 MG PO EVERY 6 HOURS PRN for Diarrhea, (Reported) Ondansetron* (Zofran*), 4 MG IV Q6H PRN for Nausea & Vomiting, (Reported) Polyethylene Glycol 3350* (Polyethylene Glycol 3350*), 17 GM ORAL BEDTIME PRN for Constipation, (Reported) Zolpidem Tartrate* (Ambien*), 5 MG ORAL BEDTIME PRN for Insomnia, (Reported) Miscellaneous Medications Unable to Obtain Medications (Unable To Obtain Meds), (Reported) Patient History Limited by: medical condition History Provided By: Patient, Family Member, Medical Record Healthcare decision maker Resuscitation status Do Not Resuscitate Advanced Directive on File Daughter Jenn Lin Past Medical/Surgical History Past Medical/Surgical History: (1) Dementia (2) Parkinsons disease (3) GERD (gastroesophageal reflux disease) (4) FTT (failure to thrive) in adult (5) UTI (urinary tract infection) Review of Systems Constitutional: Denies: no symptoms, see HPI, chills, sweats, fever, malaise, weakness, other Eye: Denies: no symptoms, see HPI, eye pain, blurred vision, tearing, double vision, nose pain, nose congestion, acuity changes, discharge, other ENT: Denies: no symptoms, see HPI, ear pain, ear discharge, nose pain, nose congestion, throat pain, throat swelling, mouth pain, hearing loss, nasal discharge, other Respiratory: Denies: no symptoms, see HPI, cough, orthopnea, shortness of breath, stridor, wheezing, COREY, sputum, other Cardiovascular: Denies: no symptoms, see HPI, chest pain, edema, palpitations, syncope, PND, other Gastrointestinal: Denies: no symptoms, see HPI, abdominal pain, constipation, diarrhea, nausea, vomiting, melena, hematemesis, other Genitourinary: Denies: no symptoms, see HPI, discharge, dysuria, frequency, hematuria, pain, retention, incontinence, urgency, vag bleed/dc, other Musculoskeletal: Denies: no symptoms, see HPI, back pain, gout, joint pain, joint swelling, muscle pain, muscle stiffness, other Skin: Denies: no symptoms, see HPI, rash, change in color, change in hair/nails , dryness, lesions, other Psychiatric: Denies: no symptoms, see HPI, prior hx, anxiety, depressed feelings, emotional problems, SI, HI, hallucinations, other Neurological: Denies: no symptoms, see HPI, headache, numbness, paresthesia, seizure, tingling, tremors, focal weakness, syncope, dizziness, other Endocrine: Denies: no symptoms, see HPI, excessive sweating, flushing, intolerance to temperature, increased thirst, increased urine, unexplained weight loss, other Hematologic/Lymphatic: Denies: no symptoms, see HPI, anemia, blood clots, easy bleeding, easy bruising, swollen glands, diathesis, other Physical Exam General Appearance: WD/WN, no apparent distress, alert, confused Lines, tubes and drains: peripheral HEENT: normocephalic, atraumatic, anicteric, mucous membranes moist, PERRL, EOMI, pharynx normal, supple, no JVD Neck: non-tender, normal alignment, supple, normal inspection Respiratory/Chest: normal breath sounds, no respiratory distress, no accessory muscle use Cardiovascular/Chest: no JVD Extremities: non-tender, normal inspection, no calf tenderness, normal capillary refill, non-pitting, no cyanosis Skin Exam: normal pigmentation, warm/dry 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 Physical Exam Narrative Upon neurological examination, she is alert to voice, pleasantly interactive, and non focal but with resting tremor of BUE (R>L) and right foot as well as chin tremor. Last 24 Hour Vital Signs Date Time Temp Pulse Resp B/P (MAP) Pulse Ox O2 Delivery O2 Flow Rate FiO2 12/11/18 00:00 97.8 84 19 131/64 (86) 93 12/10/18 21:00 Room Air 12/10/18 20:00 97.6 79 18 126/63 (84) 92 12/10/18 19:19 82 18 94 Room Air 21 12/10/18 16:00 98.1 80 17 154/85 (108) 94 12/10/18 12:00 98.5 79 18 136/68 (90) 93 12/10/18 09:00 Room Air 12/10/18 08:00 99.8 85 20 139/69 (92) 92 12/10/18 07:00 80 16 94 Room Air 21 12/10/18 04:00 98.1 77 20 138/74 (95) 93 Intake and Output 12/10/18 12/11/18 18:59 06:59 Intake Total 1140 ml Balance 1140 ml Intake Oral 240 ml IV Total 900 ml # Voids 1 # Bowel Movements 1 Laboratory Tests Test 12/10/18 08:30 Carcinoembryonic Antigen Pending Vancomycin Level Trough 5.3 ug/mL (5.0-12.0) Height (Feet): 5 Height (Inches): 4.00 Weight (Pounds): 120 Medications Current Medications Medications (Trade) Dose Ordered Sig/Mary Route PRN Reason Start Time Stop Time Status Last Admin Dose Admin Acetaminophen (Tylenol) 650 mg Q4H PRN ORAL Mild Pain (Pain Scale 1-3) 12/08/18 15:45 01/07/19 15:44 Acetaminophen (Tylenol) 650 mg Q4H PRN ORAL fever 12/08/18 15:45 01/07/19 15:44 Al Hydroxide/Mg Hydroxide (Mylanta II) 30 ml Q6H PRN ORAL dyspepsia 12/08/18 15:45 01/07/19 15:44 Albuterol/ Ipratropium (Albuterol/ Ipratropium) 3 ml Q4H PRN HHN Shortness of Breath 12/08/18 15:45 12/13/18 15:44 Aspirin (Ecotrin) 81 mg DAILY ORAL 12/09/18 09:00 01/08/19 08:59 12/10/18 09:05 Azithromycin (Zithromax) 250 mg DAILY ORAL 12/09/18 09:00 12/16/18 08:59 12/10/18 09:06 Bisacodyl (Dulcolax) 10 mg HSPRN PRN RECTAL Constipation 12/08/18 15:45 01/07/19 15:44 Carbidopa/Levodopa (Sinemet 25/100) 1 tab THREE TIMES A DAY ORAL 12/08/18 18:00 01/07/19 17:59 12/10/18 18:26 Dextrose (Dextrose 50%) 25 ml Q30M PRN IV Hypoglycemia 12/08/18 15:45 01/07/19 15:44 Dextrose (Dextrose 50%) 50 ml Q30M PRN IV Hypoglycemia 12/08/18 15:45 01/07/19 15:44 Diphenhydramine HCl (Benadryl) 25 mg Q6H PRN ORAL Itching/Pruritis 12/08/18 15:45 01/07/19 15:44 Docusate Sodium (Colace) 100 mg EVERY 12 HOURS ORAL 12/08/18 21:00 01/07/19 20:59 12/10/18 21:09 Donepezil HCl (Aricept) 10 mg DAILY ORAL 12/09/18 09:00 01/08/19 08:59 12/10/18 09:06 Heparin Sodium (Porcine) (Heparin 5000 units/ml) 5,000 units EVERY 8 HOURS SUBQ 12/08/18 22:00 01/07/19 21:59 12/10/18 21:10 Magnesium Hydroxide (Mom) 30 ml HSPRN PRN ORAL Constipation 12/08/18 15:45 01/07/19 15:44 Mirtazapine (Remeron) 15 mg BEDTIME ORAL 12/08/18 21:00 01/07/19 20:59 12/10/18 21:09 Morphine Sulfate (Morphine Sulfate) 2 mg Q6H PRN IVP Moderate Pain (Pain Scale 4-6) 12/08/18 15:45 12/15/18 15:44 Morphine Sulfate (Morphine Sulfate) 4 mg Q6H PRN IVP Severe Pain (Pain Scale 7-10) 12/08/18 15:45 12/15/18 15:44 Nitroglycerin (Ntg) 0.4 mg Q5M X 3 DOSES PRN SL Prn Chest Pain 12/08/18 15:45 01/07/19 15:44 Ondansetron HCl (Zofran) 4 mg Q6H PRN IVP Nausea & Vomiting 12/08/18 15:45 01/07/19 15:44 Pantoprazole (Protonix) 40 mg DAILY ORAL 12/11/18 09:00 01/10/19 08:59 Piperacillin Sod/ Tazobactam Sod 3.375 gm/Dextrose 100 ml @ 25 mls/hr Q8H IVPB 12/09/18 07:30 12/16/18 07:29 12/10/18 23:36 Polyethylene Glycol (Miralax) 17 gm HSPRN PRN ORAL Constipation 12/08/18 15:45 01/07/19 15:44 Sodium Chloride 1,000 ml @ 75 mls/hr [id number] IV 12/08/18 16:00 01/07/19 15:59 12/10/18 21:10 Temazepam (Restoril) 15 mg HSPRN PRN ORAL Insomnia 12/08/18 15:45 12/15/18 15:44 Vancomycin HCl (Vanco rx to dose) 1 ea DAILY PRN MISC Per rx protocol 12/08/18 15:45 01/07/19 15:44 Vancomycin HCl 1 gm/Dextrose 275 ml @ 183.708 mls/hr Q12HR@0800,2000 IVPB 12/10/18 10:00 12/15/18 09:59 12/10/18 20:38 Assessment/Plan Problem List: (1) Fever ICD Codes: R50.9 - Fever, unspecified SNOMED: 926916152 (2) Weakness ICD Codes: R53.1 - Weakness SNOMED: 00810414 (3) Dementia ICD Codes: F03.90 - Unspecified dementia without behavioral disturbance SNOMED: 12128877 (4) Parkinsons disease ICD Codes: G20 - Parkinson's disease SNOMED: 70544536 (5) Severe protein-calorie malnutrition ICD Codes: E43 - Unspecified severe protein-calorie malnutrition SNOMED: 044811304 (6) Severe bilateral hip osteoarthritis (7) nodular infiltrate of lung (8) GERD (gastroesophageal reflux disease) ICD Codes: K21.9 - Gastro-esophageal reflux disease without esophagitis SNOMED: 810944765 (9) FTT (failure to thrive) in adult ICD Codes: R62.7 - Adult failure to thrive SNOMED: 890072414 (10) UTI (urinary tract infection) ICD Codes: N39.0 - Urinary tract infection, site not specified SNOMED: 04166615 Qualifiers: Qualified Codes: N39.0 - Urinary tract infection, site not specified (11) Pneumonia ICD Codes: J18.9 - Pneumonia, unspecified organism SNOMED: 833226285 Qualifiers: Qualified Codes: J18.9 - Pneumonia, unspecified organism (12) Acute encephalopathy ICD Codes: G93.40 - Encephalopathy, unspecified SNOMED: 8481911 (13) Lives in assisted living facility ICD Codes: Z59.3 - Problems related to living in residential institution SNOMED: 22635388891252474 Status: stable, progressing Assessment/Plan: Q4 Hour Neuro Checks SBP<140 Na 135-145 HgB>8 PT Eval as able Abx as per ID / Pulm Maintain normothermia with Tylenol PRN Q 6 hrs and cooling blanket if needed Prevent inpatient delirium with good maintenance of sleep hygiene, minimzation of non essential nighttime interventions/ care Avoid administration of benzodiazapenes, opioids, and anticholinergics Consider checking Iron / replace/ replete lytes as needed . Discussed increased Sinemet due to worsening tremor recently with patient's daughter, however will await further improvement/ stabilization of patient's MS and infection symptoms/ treatment . Will continue to follow patient Kimberly Carr N.P. Dec 11, 2018 03:53
[2018-12-11 04:28] VITALS: BP 115/66
[2018-12-11] MEDS: Heparin 5000 units/ml inj SUBQ SCH ×3 (06:23→22:13)
[2018-12-11 07:26] LABS: BASOPHILS % (AUTO) 1.4 % (0.0-2.0); EOSINOPHILS % (AUTO) 2.9 % (0.0-3.0); HEMOGLOBIN 10.4 G/DL (12.0-16.0); LYMPHOCYTES % (AUTO) 5.8 % (20.0-45.0); MEAN CORPUSCULAR VOLUME 93 FL (80-99); MONOCYTES % (AUTO) 6.8 % (1.0-10.0); NEUTROPHILS % (AUTO) 83.2 % (45.0-75.0); PLATELET COUNT 568 K/UL (150-450); RED BLOOD COUNT 3.42 M/UL (4.20-5.40); RED CELL DISTRIBUTION WIDTH 12.4 % (11.6-14.8); WHITE BLOOD COUNT 10.5 K/UL (4.8-10.8)
--- NOTE | 2018-12-11 07:45 | NUR ---
NURSE NOTES: WALKING ROUNDS DONE WITH OUTGOING RN. PATIENT AT BEDSIDE ON COMMODE WITH DAUGHTER PRESENT.QUESTIONS ANSWERED, NEEDS MET. DISCUSSED PLAN OF CARE FOR THE DAY. HEAD TO TOE ASSESSMENT DONE. NOTED SACRAL/ COCCYX AREA WITH RED AND BLANCHABLE. WILL INITIATE WOUND CARE ORDERS AND PLACE OPTIFAOM TO AREA.
--- NOTE | 2018-12-11 07:47 | NUR ---
HAND-OFF: Report given to TIMOTEO West. Patient is awake and in bed, propped on left side. VS stable.
[2018-12-11 07:57] LABS: ANION GAP 9 mmol/L (5-15); BLOOD UREA NITROGEN 10 mg/dL (7-18); CALCIUM 8.6 MG/DL (8.5-10.1); CARBON DIOXIDE 26 MMOL/L (21-32); CHLORIDE 109 MMOL/L (98-107); CREATININE 0.7 MG/DL (0.55-1.30); POTASSIUM 3.4 MMOL/L (3.5-5.1); SODIUM 144 MMOL/L (136-145)
[2018-12-11 08:00] VITALS: BP 126/59
--- NOTE | 2018-12-11 08:38 | NUR ---
NURSE NOTES:WOUND CARE NOTES:Pt noted to have non-blanchable erythema without induration or fluctuance sacrococcygeal area(L)1.5cm x (W)1cm. scattered erythematous areas without induration noted to R and L clefts of buttocks. Pt denied tenderness when affected areas palpated.both elbows dry,red but blanchable. Both heels are soft but blanchable and non-tender. Pt and Dtr both educated on wound prevention. Pt encouraged to frequently turn while in bed. Encouraged to keep hob of bed at 30degrees or less if able to tolerate. Encouraged out of bed to participate with physical therapy. Pt also instructed to off-lift buttocks when repositioning to prevent friction from sliding against bed linens. Recommendations:Apply TRiad Paste to sacrococcygeal area.Cover with Optifoam drsg. Change every 3 days and prn. Apply Triad paste to bilat Ischial areas and clefts of buttocks with each perineal care. Apply Cavilon Skin Barrier to both heels. Cover each heel with Optifoam drsg. Change every 7 days and prn. APM/CHRISTIN Mattress overlay. Reposition at least every 2hours or as tolerated. Off-load heels with pillow.
[2018-12-11] MEDS: Vancomycin 1gm/D5W 275ml IVPB SCH ×4 (09:11→20:34)
[2018-12-11] MEDS: Donepezil 10mg tab ORAL SCH (09:11)
[2018-12-11] MEDS: Azithromycin 250mg tab ORAL SCH (09:12)
[2018-12-11] MEDS: Levodopa/Carbidopa 25/100 tab ORAL SCH ×3 (09:12→18:15)
[2018-12-11] MEDS: Docusate 100mg cap ORAL SCH ×2 (09:12→20:34)
[2018-12-11] MEDS: Aspirin EC 81mg tab ORAL SCH (09:12)
--- NOTE | 2018-12-11 11:16 | Pulmonology Progress Note ---
Assessment/Plan Problems: (1) Pneumonia (2) nodular infiltrate of lung (3) UTI (urinary tract infection) (4) Acute encephalopathy (5) Parkinsons disease (6) Dementia (7) Severe protein-calorie malnutrition (8) Severe bilateral hip osteoarthritis (9) FTT (failure to thrive) in adult (10) GERD (gastroesophageal reflux disease) Assessment/Plan ASSESSMENT: * Healthcare associated pneumonia (Dense LLL > R infiltrates in an [facility] resident) * H/O bronchiectasis and scattered bilateral pulmonary nodules, seen 06/2017, some masslike * Know pulmonary nodules, upto @ least 10 years, previously worked up and deemed to be non-cancerous * PD, dementia * Dysphagia * DJD * GERD, small HH * DNAR PLAN: * Optimize pulmonary hygiene/mobilize as tolerated * PRN O2 * PRN HHN's * Abx (Vanco, Zosyn, Azithro) per ID * Aspiration precautions, ADVOC[employer]Y DIRECTOR recs * Monitor volumes and renal function * DVT Px: Hep SQ * DNAR, no escalation of care * Would not work up underlying lung nodules given GOC Subjective Allergies: Coded Allergies: DICLOFENAC (Verified Allergy, Unknown, 07/11/17) SULFA (SULFONAMIDE ANTIBIOTICS) (Verified Allergy, Unknown, 07/11/17) SULFAMETHOXAZOLE (Verified Allergy, Unknown, 07/11/17) TRIMETHOPRIM (Verified Allergy, Unknown, 07/11/17) Subjective AFVSS on RA Less cough and SOB no wheezing MS @ baseline Objective Last 24 Hour Vital Signs Date Time Temp Pulse Resp B/P (MAP) Pulse Ox O2 Delivery O2 Flow Rate FiO2 12/11/18 09:00 Room Air 12/11/18 08:00 97.9 84 18 126/59 (81) 97 12/11/18 07:19 79 18 96 Room Air 21 12/11/18 04:28 97.8 72 18 115/66 (82) 95 12/11/18 00:00 97.8 84 19 131/64 (86) 93 12/10/18 21:00 Room Air 12/10/18 20:00 97.6 79 18 126/63 (84) 92 12/10/18 19:19 82 18 94 Room Air 21 12/10/18 16:00 98.1 80 17 154/85 (108) 94 12/10/18 12:00 98.5 79 18 136/68 (90) 93 Intake and Output 12/10/18 12/11/18 19:00 07:00 Intake Total 1140 ml 75 ml Balance 1140 ml 75 ml Intake Oral 240 ml IV Total 900 ml 75 ml # Voids 1 5 # Bowel Movements 1 1 General Appearance: no acute distress, cachetic HEENT: normocephalic, atraumatic, anicteric, mucous membranes moist Respiratory/Chest: rhonchi Cardiovascular: normal peripheral pulses, normal rate, regular rhythm Abdomen: normal bowel sounds, soft, non tender, no organomegaly, non distended Extremities: no cyanosis, no clubbing, no edema Microbiology Date/Time Source Procedure Growth Status 12/08/18 12:45 Blood Blood Culture - Preliminary NO GROWTH AFTER 48 HOURS Resulted 12/08/18 12:45 Blood Blood Culture - Preliminary NO GROWTH AFTER 48 HOURS Resulted 12/08/18 14:00 Nasal Nares MRSA Culture - Final NO METHICILLIN RESISTANT STAPH AUREUS... Complete 12/08/18 13:12 Urine,Clean Catch Urine Culture - Preliminary Gram Negative Bacillus 1 Resulted 12/08/18 14:00 Rectum VRE Culture - Final NO VANCOMYCIN RESISTANT ENTEROCOCCUS ... Complete 12/08/18 14:00 Rectum - Final NO CARBAPENEM-RESISTANT ENTEROBACTERI... Complete Laboratory Tests 12/11/18 06:51: White Blood Count 10.5, Red Blood Count 3.42L, Hemoglobin 10.4L, Hematocrit 32.0L, Mean Corpuscular Volume 93, Mean Corpuscular Hemoglobin 30.3, Mean Corpuscular Hemoglobin Concent 32.4, Red Cell Distribution Width 12.4, Platelet Count 568H, Mean Platelet Volume 6.1L, Neutrophils (%) (Auto) 83.2H, Lymphocytes (%) (Auto) 5.8L, Monocytes (%) (Auto) 6.8, Eosinophils (%) (Auto) 2.9, Basophils (%) (Auto) 1.4, Sodium Level 144, Potassium Level 3.4L, Chloride Level 109H, Carbon Dioxide Level 26, Anion Gap 9, Blood Urea Nitrogen 10, Creatinine 0.7, Estimat Glomerular Filtration Rate , Glucose Level 94, Calcium Level 8.6 Current Medications Medications (Trade) Dose Ordered Sig/Mary Route PRN Reason Start Time Stop Time Status Last Admin Dose Admin Acetaminophen (Tylenol) 650 mg Q4H PRN ORAL Mild Pain (Pain Scale 1-3) 12/08/18 15:45 01/07/19 15:44 Acetaminophen (Tylenol) 650 mg Q4H PRN ORAL fever 12/08/18 15:45 01/07/19 15:44 Al Hydroxide/Mg Hydroxide (Mylanta II) 30 ml Q6H PRN ORAL dyspepsia 12/08/18 15:45 01/07/19 15:44 Albuterol/ Ipratropium (Albuterol/ Ipratropium) 3 ml Q4H PRN HHN Shortness of Breath 12/08/18 15:45 12/13/18 15:44 Aspirin (Ecotrin) 81 mg DAILY ORAL 12/09/18 09:00 01/08/19 08:59 12/11/18 09:12 Azithromycin (Zithromax) 250 mg DAILY ORAL 12/09/18 09:00 12/16/18 08:59 12/11/18 09:12 Bisacodyl (Dulcolax) 10 mg HSPRN PRN RECTAL Constipation 12/08/18 15:45 01/07/19 15:44 Carbidopa/Levodopa (Sinemet 25/100) 1 tab THREE TIMES A DAY ORAL 12/08/18 18:00 01/07/19 17:59 12/11/18 09:12 Dextrose (Dextrose 50%) 25 ml Q30M PRN IV Hypoglycemia 12/08/18 15:45 01/07/19 15:44 Dextrose (Dextrose 50%) 50 ml Q30M PRN IV Hypoglycemia 12/08/18 15:45 01/07/19 15:44 Diphenhydramine HCl (Benadryl) 25 mg Q6H PRN ORAL Itching/Pruritis 12/08/18 15:45 01/07/19 15:44 Docusate Sodium (Colace) 100 mg EVERY 12 HOURS ORAL 12/08/18 21:00 01/07/19 20:59 12/11/18 09:12 Donepezil HCl (Aricept) 10 mg DAILY ORAL 12/09/18 09:00 01/08/19 08:59 12/11/18 09:11 Heparin Sodium (Porcine) (Heparin 5000 units/ml) 5,000 units EVERY 8 HOURS SUBQ 12/08/18 22:00 01/07/19 21:59 12/11/18 06:23 Magnesium Hydroxide (Mom) 30 ml HSPRN PRN ORAL Constipation 12/08/18 15:45 01/07/19 15:44 Mirtazapine (Remeron) 15 mg BEDTIME ORAL 12/08/18 21:00 01/07/19 20:59 12/10/18 21:09 Morphine Sulfate (Morphine Sulfate) 2 mg Q6H PRN IVP Moderate Pain (Pain Scale 4-6) 12/08/18 15:45 12/15/18 15:44 Morphine Sulfate (Morphine Sulfate) 4 mg Q6H PRN IVP Severe Pain (Pain Scale 7-10) 12/08/18 15:45 12/15/18 15:44 Nitroglycerin (Ntg) 0.4 mg Q5M X 3 DOSES PRN SL Prn Chest Pain 12/08/18 15:45 01/07/19 15:44 Ondansetron HCl (Zofran) 4 mg Q6H PRN IVP Nausea & Vomiting 12/08/18 15:45 01/07/19 15:44 Pantoprazole (Protonix) 40 mg DAILY ORAL 12/11/18 09:00 01/10/19 08:59 12/11/18 09:11 Piperacillin Sod/ Tazobactam Sod 3.375 gm/Dextrose 100 ml @ 25 mls/hr Q8H IVPB 12/09/18 07:30 12/16/18 07:29 12/11/18 07:34 Polyethylene Glycol (Miralax) 17 gm HSPRN PRN ORAL Constipation 12/08/18 15:45 01/07/19 15:44 Sodium Chloride 1,000 ml @ 75 mls/hr [id number] IV 12/08/18 16:00 01/07/19 15:59 12/10/18 21:10 Temazepam (Restoril) 15 mg HSPRN PRN ORAL Insomnia 12/08/18 15:45 12/15/18 15:44 Vancomycin HCl (Vanco rx to dose) 1 ea DAILY PRN MISC Per rx protocol 12/08/18 15:45 01/07/19 15:44 Vancomycin HCl 1 gm/Dextrose 275 ml @ 183.708 mls/hr Q12HR@0800,2000 IVPB 12/10/18 10:00 12/15/18 09:59 12/11/18 09:11 Chris Lunsford MD Dec 11, 2018 11:16
[2018-12-11 12:00] VITALS: BP 150/75
--- NOTE | 2018-12-11 12:30 | NUR ---
NURSE NOTES: WOUND CARE PROTOCOL STARTED. PATIENT SEEN BY WOUND CARE NURSE. ASSISTED WITH TAKING PHOTO OF SACRAL AND PLACEMENT OPTIFOAM TO AREA AND PREVENTION OPTIFOAM PLACED TO BILATERAL ELBOWS AND HEELS. TURN SCHEDULE IN PROGRESS. TOLERATED WELL. DAUGHTER AT BEDSIDE. CALL LIGHT WITHIN REACH. BED IN LOWEST LOCKED POSITION.WILL CONTINUE TO MONITOR.
[2018-12-11 16:00] VITALS: BP 152/81
--- NOTE | 2018-12-11 18:19 | Hematology/Onc Progress Note ---
Assessment/Plan Assessment/Plan ASSESSMENT AND REC'S 1.Leukocytosis/elevated white blood cell count, likely due to Multifocal PNA --> have reviewed peripheral smear --> On antibiotics, followed by ID team, Appreciate recs, --> CXR reviewed pathcy Multifocal PNA, CT Chest reviewed from 06/2017 --> continue to monitor --> wbc trend 10.5 2. Pulmonary Lung Nodule --> Pulmo following appreciate rec's. --> 12/08/18 CXR: Dense patchy LLL > R infiltrates 06/2017 CT:Impression: Multiple bilateral nodular and irregular parenchymal opacities, as described above. Association with bronchiectasis suggests that to large extent these represent chronic postinflammatory lesions. However, some lesions, particularly in the right upper lobe and left lower lobe are more masslike in appearance. This raises concern for neoplasm, possibly multifocal. Note that some of the lesions also appear cavitary, although this appearance may be just due to fibrosis surrounding bronchiectatic bronchi Mild hyperinflation suggestive of COPD Small to moderate sliding-type hiatal hernia Small anterior pericardial effusion Incidental findings of left renal parapelvic cysts, degenerative spondylosis --> Daughter stated history of being diagnosed with Lung cancer in 2004, however no confrimation and diagnosis was incorrect we will order CEA level for now. --> Per Pulmo no further work-up due to GOC..has been discussed with daughter. POLST Reviewed with daughter DNR, Comfort care. 3. PNA --> On abx treatment and ID and Pulmo following. --> Aspirations precuations 4.Parkinson's Disease --> Bilat hand tremors --> continue current care 5. Dementia --> Daughter Colleshon P.O.A continue supportive care 6. DJD 7..GERD The timing of this note does not necessarily reflect the time of the patient was seen. GREATLY APPRECIATE CONSULTATION. Subjective Allergies: Coded Allergies: DICLOFENAC (Verified Allergy, Unknown, 07/11/17) SULFA (SULFONAMIDE ANTIBIOTICS) (Verified Allergy, Unknown, 07/11/17) SULFAMETHOXAZOLE (Verified Allergy, Unknown, 07/11/17) TRIMETHOPRIM (Verified Allergy, Unknown, 07/11/17) Subjective 12/11: Pt no SOB or wheezing. VS stable Objective Objective Current Medications Medications (Trade) Dose Ordered Sig/Mary Route PRN Reason Start Time Stop Time Status Last Admin Dose Admin Acetaminophen (Tylenol) 650 mg Q4H PRN ORAL Mild Pain (Pain Scale 1-3) 12/08/18 15:45 01/07/19 15:44 Acetaminophen (Tylenol) 650 mg Q4H PRN ORAL fever 12/08/18 15:45 01/07/19 15:44 Al Hydroxide/Mg Hydroxide (Mylanta II) 30 ml Q6H PRN ORAL dyspepsia 12/08/18 15:45 01/07/19 15:44 Albuterol/ Ipratropium (Albuterol/ Ipratropium) 3 ml Q4H PRN HHN Shortness of Breath 12/08/18 15:45 12/13/18 15:44 Aspirin (Ecotrin) 81 mg DAILY ORAL 12/09/18 09:00 01/08/19 08:59 12/11/18 09:12 Azithromycin (Zithromax) 250 mg DAILY ORAL 12/09/18 09:00 12/16/18 08:59 12/11/18 09:12 Bisacodyl (Dulcolax) 10 mg HSPRN PRN RECTAL Constipation 12/08/18 15:45 01/07/19 15:44 Carbidopa/Levodopa (Sinemet 25/100) 1 tab THREE TIMES A DAY ORAL 12/08/18 18:00 01/07/19 17:59 12/11/18 13:32 Dextrose (Dextrose 50%) 25 ml Q30M PRN IV Hypoglycemia 12/08/18 15:45 01/07/19 15:44 Dextrose (Dextrose 50%) 50 ml Q30M PRN IV Hypoglycemia 12/08/18 15:45 01/07/19 15:44 Diphenhydramine HCl (Benadryl) 25 mg Q6H PRN ORAL Itching/Pruritis 12/08/18 15:45 01/07/19 15:44 Docusate Sodium (Colace) 100 mg EVERY 12 HOURS ORAL 12/08/18 21:00 01/07/19 20:59 12/11/18 09:12 Donepezil HCl (Aricept) 10 mg DAILY ORAL 12/09/18 09:00 01/08/19 08:59 12/11/18 09:11 Heparin Sodium (Porcine) (Heparin 5000 units/ml) 5,000 units EVERY 8 HOURS SUBQ 12/08/18 22:00 01/07/19 21:59 12/11/18 13:34 Magnesium Hydroxide (Mom) 30 ml HSPRN PRN ORAL Constipation 12/08/18 15:45 01/07/19 15:44 Mirtazapine (Remeron) 15 mg BEDTIME ORAL 12/08/18 21:00 01/07/19 20:59 12/10/18 21:09 Morphine Sulfate (Morphine Sulfate) 2 mg Q6H PRN IVP Moderate Pain (Pain Scale 4-6) 12/08/18 15:45 12/15/18 15:44 Morphine Sulfate (Morphine Sulfate) 4 mg Q6H PRN IVP Severe Pain (Pain Scale 7-10) 12/08/18 15:45 12/15/18 15:44 Nitroglycerin (Ntg) 0.4 mg Q5M X 3 DOSES PRN SL Prn Chest Pain 12/08/18 15:45 01/07/19 15:44 Ondansetron HCl (Zofran) 4 mg Q6H PRN IVP Nausea & Vomiting 12/08/18 15:45 01/07/19 15:44 Pantoprazole (Protonix) 40 mg DAILY ORAL 12/11/18 09:00 01/10/19 08:59 12/11/18 09:11 Piperacillin Sod/ Tazobactam Sod 3.375 gm/Dextrose 100 ml @ 25 mls/hr Q8H IVPB 12/09/18 07:30 12/16/18 07:29 12/11/18 15:38 Polyethylene Glycol (Miralax) 17 gm HSPRN PRN ORAL Constipation 12/08/18 15:45 01/07/19 15:44 Sodium Chloride 1,000 ml @ 75 mls/hr [id number] IV 12/08/18 16:00 01/07/19 15:59 12/10/18 21:10 Temazepam (Restoril) 15 mg HSPRN PRN ORAL Insomnia 12/08/18 15:45 12/15/18 15:44 Vancomycin HCl (Vanco rx to dose) 1 ea DAILY PRN MISC Per rx protocol 12/08/18 15:45 01/07/19 15:44 Vancomycin HCl 1 gm/Dextrose 275 ml @ 183.708 mls/hr Q12HR@0800,2000 IVPB 12/10/18 10:00 12/15/18 09:59 12/11/18 09:11 Last 24 Hour Vital Signs Date Time Temp Pulse Resp B/P (MAP) Pulse Ox O2 Delivery O2 Flow Rate FiO2 12/11/18 16:00 98.4 92 18 152/81 (104) 97 12/11/18 12:00 98.6 83 18 150/75 (100) 98 12/11/18 09:00 Room Air 12/11/18 08:00 97.9 84 18 126/59 (81) 97 12/11/18 07:19 79 18 96 Room Air 21 12/11/18 04:28 97.8 72 18 115/66 (82) 95 12/11/18 00:00 97.8 84 19 131/64 (86) 93 12/10/18 21:00 Room Air 12/10/18 20:00 97.6 79 18 126/63 (84) 92 12/10/18 19:19 82 18 94 Room Air 21 12/10/18 16:00 98.1 80 17 154/85 (108) 94 12/10/18 12:00 98.5 79 18 136/68 (90) 93 12/10/18 09:00 Room Air 12/10/18 08:00 99.8 85 20 139/69 (92) 92 12/10/18 07:00 80 16 94 Room Air 21 12/10/18 04:00 98.1 77 20 138/74 (95) 93 12/10/18 00:00 98.1 78 16 128/64 (85) 93 12/09/18 23:40 83 16 93 Room Air 21 12/09/18 21:00 Room Air 12/09/18 20:00 97.4 79 16 127/63 (84) 92 Intake and Output 12/10/18 12/11/18 19:00 07:00 Intake Total 1140 ml 75 ml Balance 1140 ml 75 ml Intake Oral 240 ml IV Total 900 ml 75 ml # Voids 1 5 # Bowel Movements 1 1 Labs Test 12/09/18 05:26 12/10/18 08:30 12/11/18 06:51 White Blood Count 17.5 K/UL (4.8-10.8) 10.5 K/UL (4.8-10.8) Red Blood Count 3.21 M/UL (4.20-5.40) 3.42 M/UL (4.20-5.40) Hemoglobin 9.8 G/DL (12.0-16.0) 10.4 G/DL (12.0-16.0) Hematocrit 29.8 % (37.0-47.0) 32.0 % (37.0-47.0) Mean Corpuscular Volume 93 FL (80-99) 93 FL (80-99) Mean Corpuscular Hemoglobin 30.6 PG (27.0-31.0) 30.3 PG (27.0-31.0) Mean Corpuscular Hemoglobin Concent 32.8 G/DL (32.0-36.0) 32.4 G/DL (32.0-36.0) Red Cell Distribution Width 12.4 % (11.6-14.8) 12.4 % (11.6-14.8) Platelet Count 436 K/UL (150-450) 568 K/UL (150-450) Mean Platelet Volume 6.4 FL (6.5-10.1) 6.1 FL (6.5-10.1) Neutrophils (%) (Auto) % (45.0-75.0) 83.2 % (45.0-75.0) Lymphocytes (%) (Auto) % (20.0-45.0) 5.8 % (20.0-45.0) Monocytes (%) (Auto) % (1.0-10.0) 6.8 % (1.0-10.0) Eosinophils (%) (Auto) % (0.0-3.0) 2.9 % (0.0-3.0) Basophils (%) (Auto) % (0.0-2.0) 1.4 % (0.0-2.0) Differential Total Cells Counted 100 Neutrophils % (Manual) 88 % (45-75) Lymphocytes % (Manual) 5 % (20-45) Monocytes % (Manual) 5 % (1-10) Eosinophils % (Manual) 1 % (0-3) Basophils % (Manual) 1 % (0-2) Band Neutrophils 0 % (0-8) Platelet Estimate Adequate Platelet Morphology Normal Anisocytosis 1+ Sodium Level 142 MMOL/L (136-145) 144 MMOL/L (136-145) Potassium Level 3.5 MMOL/L (3.5-5.1) 3.4 MMOL/L (3.5-5.1) Chloride Level 106 MMOL/L (98-107) 109 MMOL/L (98-107) Carbon Dioxide Level 26 MMOL/L (21-32) 26 MMOL/L (21-32) Anion Gap 10 mmol/L (5-15) 9 mmol/L (5-15) Blood Urea Nitrogen 14 mg/dL (7-18) 10 mg/dL (7-18) Creatinine 0.7 MG/DL (0.55-1.30) 0.7 MG/DL (0.55-1.30) Estimat Glomerular Filtration Rate mL/min (>60) mL/min (>60) Glucose Level 88 MG/DL (74-106) 94 MG/DL (74-106) Calcium Level 8.6 MG/DL (8.5-10.1) 8.6 MG/DL (8.5-10.1) Magnesium Level 1.7 MG/DL (1.8-2.4) Pro-B-Type Natriuretic Peptide 1389 pg/mL (0-125) Carcinoembryonic Antigen 1.8 ng/mL (0.0-4.7) Vancomycin Level Trough 5.3 ug/mL (5.0-12.0) Height (Feet): 5 Height (Inches): 4.00 Weight (Pounds): 120 Objective PE: Head: normocephalic, atraumatic Eyes: bilateral eye normal inspection, bilateral eye PERRL ENT: hearing grossly normal, normal pharynx, no angioedema, normal voice Neck: full range of motion, supple/symm/no masses Respiratory: chest non-tender, lungs clear, crackles, speaking full sentences Cardiovascular: regular rate, rhythm, no edema Gastrointestinal: normal bowel sounds, non tender, soft, non-distended, no guarding, no rebound Genitourinary: normal inspection, no CVA tenderness Musculoskeletal: back normal, gait/station normal, normal range of motion, non- tender Neurologic: alert, oriented x2, + tremors bilat hands Psychiatric: judgement/insight normal, memory normal, mood/affect normal, no suicidal/homicidal ideation Manpreet Jiang MD Dec 11, 2018 18:19
--- NOTE | 2018-12-11 19:00 | General Progress Note ---
Assessment/Plan Assessment/Plan: 83 y/o female [facility] resident, presenting with fever found to have multifocal healthcare associated pneumonia, now on broad spectrum IV abx #Sepsis due to Healthcare Associated pneumonia #Multifocal L sided infiltrates #Lung nodules - Apprec pulm input - No need for workup of lung nodules - Vanco/zosyn/azithro - Supp resp care - Gentle IV fluids - Aspiration precautions #Sepsis due to UTI - Cont IV abx per ID - f/u urine cx #Severe Protein Calorie Malnutrition - Monitor nutritional status - Nutrition consult #Hypomagnesemia - replete Mag #parkinsons disease/Dementia - Cont carbidopa/levodopa - Cont aricept DVT ppx: hep subq Code: DNAR/DNI Subjective Date patient seen: Dec 11, 2018 Allergies: Coded Allergies: DICLOFENAC (Verified Allergy, Unknown, 07/11/17) SULFA (SULFONAMIDE ANTIBIOTICS) (Verified Allergy, Unknown, 07/11/17) SULFAMETHOXAZOLE (Verified Allergy, Unknown, 07/11/17) TRIMETHOPRIM (Verified Allergy, Unknown, 07/11/17) Subjective pt seen with daughter at bedside, no acute overnight events. pt doing well, states she feels better however still with generalized weakness, has no other complaints. Objective Last 24 Hour Vital Signs Date Time Temp Pulse Resp B/P (MAP) Pulse Ox O2 Delivery O2 Flow Rate FiO2 12/11/18 16:00 98.4 92 18 152/81 (104) 97 12/11/18 12:00 98.6 83 18 150/75 (100) 98 12/11/18 09:00 Room Air 12/11/18 08:00 97.9 84 18 126/59 (81) 97 12/11/18 07:19 79 18 96 Room Air 21 12/11/18 04:28 97.8 72 18 115/66 (82) 95 12/11/18 00:00 97.8 84 19 131/64 (86) 93 12/10/18 21:00 Room Air 12/10/18 20:00 97.6 79 18 126/63 (84) 92 12/10/18 19:19 82 18 94 Room Air 21 Intake and Output 12/10/18 12/11/18 19:00 07:00 Intake Total 1140 ml 75 ml Balance 1140 ml 75 ml Intake Oral 240 ml IV Total 900 ml 75 ml # Voids 1 5 # Bowel Movements 1 1 Laboratory Tests 6/25/19 06:51: White Blood Count 10.5, Red Blood Count 3.42L, Hemoglobin 10.4L, Hematocrit 32.0L, Mean Corpuscular Volume 93, Mean Corpuscular Hemoglobin 30.3, Mean Corpuscular Hemoglobin Concent 32.4, Red Cell Distribution Width 12.4, Platelet Count 568H, Mean Platelet Volume 6.1L, Neutrophils (%) (Auto) 83.2H, Lymphocytes (%) (Auto) 5.8L, Monocytes (%) (Auto) 6.8, Eosinophils (%) (Auto) 2.9, Basophils (%) (Auto) 1.4, Sodium Level 144, Potassium Level 3.4L, Chloride Level 109H, Carbon Dioxide Level 26, Anion Gap 9, Blood Urea Nitrogen 10, Creatinine 0.7, Estimat Glomerular Filtration Rate , Glucose Level 94, Calcium Level 8.6 Height (Feet): 5 Height (Inches): 4.00 Weight (Pounds): 120 Objective General Appearance: well appearing, alert, mild distress Head: normocephalic, atraumatic Eyes: bilateral eye PERRL, bilateral eye EOMI ENT: hearing grossly normal, normal pharynx Neck: full range of motion, supple, no meningismus Respiratory: chest non-tender, respiratory distress, decreased breath sounds, accessory muscle use, rales Cardiovascular #1: regular rate, rhythm, no murmur Gastrointestinal: normal bowel sounds, non tender, no mass, no organomegaly, no bruit, non-distended Musculoskeletal: back normal, gait/station normal, normal range of motion, other - 2+ pitting edema Psychiatric: mood/affect normal Skin: warm/dry Taylor Lo MD Dec 11, 2018 19:00
--- NOTE | 2018-12-11 19:30 | NUR ---
NURSE NOTES: Report taken from TIMOTEO West. Patient is fatigued, arousable by name, family at bedside. A&Ox2, does not know day/time and can be confused as to where she is. No signs of distress on room air. No complaints or pain. Optifoam and barrier cream placed over bony prominences. Sacral area Stage 1 pressure wound, monitor closely, optifoam and barrier cream applied by day shift. Will reassess and reapply dressings prior to shift change 12/12. Air mattress applied to patients bed. IV c/d/i and patent, running NS at 75mls/hr, area wrapped as patient has tendency to remove.
--- NOTE | 2018-12-11 19:34 | NUR ---
HAND-OFF: Report given to ESTEFANI Bauer RN.
[2018-12-11 20:00] VITALS: BP 131/71
--- NOTE | 2018-12-11 20:20 | NUR ---
NURSE NOTES: Pharmacy called with Arian tam, 14.2. Continue current dosage.
[2018-12-12] VITALS: BP 148/75
--- NOTE | 2018-12-12 02:34 | Neurology Progress Note ---
Objective Physical Exam Last Vital Signs Date Time Temp Pulse Resp B/P (MAP) Pulse Ox O2 Delivery O2 Flow Rate FiO2 12/12/18 00:00 98.2 85 18 148/75 (99) 97 12/11/18 22:07 Room Air 21 Laboratory Tests Test 12/11/18 06:51 12/11/18 19:35 White Blood Count 10.5 K/UL (4.8-10.8) Red Blood Count 3.42 M/UL (4.20-5.40) L Hemoglobin 10.4 G/DL (12.0-16.0) L Hematocrit 32.0 % (37.0-47.0) L Mean Corpuscular Volume 93 FL (80-99) Mean Corpuscular Hemoglobin 30.3 PG (27.0-31.0) Mean Corpuscular Hemoglobin Concent 32.4 G/DL (32.0-36.0) Red Cell Distribution Width 12.4 % (11.6-14.8) Platelet Count 568 K/UL (150-450) H Mean Platelet Volume 6.1 FL (6.5-10.1) L Neutrophils (%) (Auto) 83.2 % (45.0-75.0) H Lymphocytes (%) (Auto) 5.8 % (20.0-45.0) L Monocytes (%) (Auto) 6.8 % (1.0-10.0) Eosinophils (%) (Auto) 2.9 % (0.0-3.0) Basophils (%) (Auto) 1.4 % (0.0-2.0) Sodium Level 144 MMOL/L (136-145) Potassium Level 3.4 MMOL/L (3.5-5.1) L Chloride Level 109 MMOL/L (98-107) H Carbon Dioxide Level 26 MMOL/L (21-32) Anion Gap 9 mmol/L (5-15) Blood Urea Nitrogen 10 mg/dL (7-18) Creatinine 0.7 MG/DL (0.55-1.30) Estimat Glomerular Filtration Rate mL/min (>60) Glucose Level 94 MG/DL (74-106) Calcium Level 8.6 MG/DL (8.5-10.1) Vancomycin Level Trough 14.2 ug/mL (5.0-12.0) H Impression/Recommendations Problems: (1) Fever (2) Weakness (3) Dementia (4) Parkinsons disease (5) Severe protein-calorie malnutrition (6) Severe bilateral hip osteoarthritis (7) nodular infiltrate of lung (8) GERD (gastroesophageal reflux disease) (9) FTT (failure to thrive) in adult (10) UTI (urinary tract infection) (11) Pneumonia (12) Acute encephalopathy (13) Lives in assisted living facility Status: stable, progressing Diagnostic Impression Acute encephalopathy due to fever/ infection (metabolic cause) with exacerbation of Parkinsonian tremor. Recommendations Q4 Hour Neuro Checks SBP<140 Na 135-145 HgB>8 PT Eval as able Abx as per ID / Pulm Maintain normothermia with Tylenol PRN Q 6 hrs and cooling blanket if needed Prevent inpatient delirium with good maintenance of sleep hygiene, minimzation of non essential nighttime interventions/ care Avoid administration of benzodiazapenes, opioids, and anticholinergics Consider checking Iron / replace/ replete lytes as needed . Discussed increased Sinemet due to worsening tremor recently with patient's daughter, however will await further improvement/ stabilization of patient's MS and infection symptoms/ treatment . Will continue to follow patient Kimberly Carr N.P. Dec 12, 2018 02:34
[2018-12-12 04:00] VITALS: BP 158/75
[2018-12-12] MEDS: Heparin 5000 units/ml inj SUBQ SCH ×2 (06:14→13:12)
[2018-12-12 06:43] LABS: % IRON SATURATION 33 % (15-50); IRON 35 ug/dL (50-175); TOTAL IRON BINDING CAPACITY 105 ug/dL (250-450)
--- NOTE | 2018-12-12 07:09 | NUR ---
HAND-OFF: Report given to TIMOTEO West.
--- NOTE | 2018-12-12 07:59 | NUR ---
NURSE NOTES: WALKING ROUNDS DONE WITH OUTGOING RN. PATIENT AWAKE IN BED. DAUGHTER AT BEDSIDE. QUESTIONS ANSWERED;NEEDS MET. DISCUSSED PLAN OF CARE FOR THE DAY.VERBALIZED UNDERSTANDING. BED IN LOWEST AND LOCKED POSITION. TURN SCHEDULE IN PROGRESS.
[2018-12-12 08:00] VITALS: BP 130/61
[2018-12-12] MEDS: Docusate 100mg cap ORAL SCH (08:55)
[2018-12-12] MEDS: Aspirin EC 81mg tab ORAL SCH (09:13)
[2018-12-12] MEDS: Vancomycin 1gm/D5W 275ml IVPB SCH ×2 (09:13)
[2018-12-12] MEDS: Donepezil 10mg tab ORAL SCH (09:13)
[2018-12-12] MEDS: Levodopa/Carbidopa 25/100 tab ORAL SCH ×3 (09:13→18:20)
[2018-12-12] MEDS: Azithromycin 250mg tab ORAL SCH (09:13)
--- NOTE | 2018-12-12 10:41 | NUR ---
CASE MANAGEMENT:REVIEW 12/12/18 SI: SEPSIS D/T PNA AND UTI 97.6 83 18 130/61 97% ON RA IS: IV VANCOMYCIN Q12 IV ZOSYN Q8HRS AZITHROMYCIN PO QD IVF@75/HR : MED/SURG STATUS 3 EAST DCP: FROM [facility]
--- NOTE | 2018-12-12 10:43 | NUR ---
DISCHARGE PLANNING PATIENT HAS BEEN REFERRED BACK TO: [facility] T: [phone] F: [phone] AWAIT OFFICIAL DISCHARGE ORDER
[2018-12-12 12:00] VITALS: BP 132/65
--- NOTE | 2018-12-12 13:24 | Pulmonology Progress Note ---
Assessment/Plan Problems: (1) Pneumonia (2) nodular infiltrate of lung (3) UTI (urinary tract infection) (4) Acute encephalopathy (5) Parkinsons disease (6) Dementia (7) Severe protein-calorie malnutrition (8) Severe bilateral hip osteoarthritis (9) FTT (failure to thrive) in adult (10) GERD (gastroesophageal reflux disease) Assessment/Plan ASSESSMENT: * Healthcare associated pneumonia (Dense LLL > R infiltrates in an [facility] resident) * H/O bronchiectasis and scattered bilateral pulmonary nodules, seen 06/2017, some masslike * Know pulmonary nodules, upto @ least 10 years, previously worked up and deemed to be non-cancerous * PD, dementia * Dysphagia * DJD * GERD, small HH * DNAR PLAN: * Optimize pulmonary hygiene/mobilize as tolerated * PRN O2 * PRN HHN's * Abx (Vanco, Zosyn, Azithro) per ID * Aspiration precautions, [facility] recs * Monitor volumes and renal function * DVT Px: Hep SQ * DNAR, no escalation of care * Would not work up underlying lung nodules given GOC Subjective Allergies: Coded Allergies: DICLOFENAC (Verified Allergy, Unknown, 07/11/17) SULFA (SULFONAMIDE ANTIBIOTICS) (Verified Allergy, Unknown, 07/11/17) SULFAMETHOXAZOLE (Verified Allergy, Unknown, 07/11/17) TRIMETHOPRIM (Verified Allergy, Unknown, 07/11/17) Subjective AFVSS on RA Less cough and SOB no wheezing MS @ baseline Objective Last 24 Hour Vital Signs Date Time Temp Pulse Resp B/P (MAP) Pulse Ox O2 Delivery O2 Flow Rate FiO2 12/12/18 12:00 97.9 78 19 132/65 (87) 78 12/12/18 09:00 Room Air 12/12/18 08:00 97.6 83 18 130/61 (84) 97 12/12/18 07:00 74 16 98 Room Air 21 12/12/18 04:00 98.1 75 18 158/75 (102) 96 12/12/18 00:00 98.2 85 18 148/75 (99) 97 12/11/18 22:07 81 16 94 Room Air 21 12/11/18 21:00 Room Air 12/11/18 20:00 98.2 83 20 131/71 (91) 97 12/11/18 19:17 90 18 98 Room Air 21 12/11/18 16:00 98.4 92 18 152/81 (104) 97 Intake and Output 12/11/18 12/12/18 19:00 07:00 Intake Total 1842.5 ml 315 ml Balance 1842.5 ml 315 ml Intake Oral 480 ml 240 ml IV Total 1362.5 ml 75 ml # Voids 2 7 # Bowel Movements 3 4 General Appearance: no acute distress, cachetic HEENT: normocephalic, atraumatic, anicteric, mucous membranes moist Respiratory/Chest: chest wall non-tender, lungs clear, normal breath sounds, no respiratory distress, no accessory muscle use Cardiovascular: normal peripheral pulses, normal rate, regular rhythm Abdomen: normal bowel sounds, soft, non tender, no organomegaly, non distended , no mass Extremities: no cyanosis, no clubbing, no edema Laboratory Tests 12/11/18 19:35: Vancomycin Level Trough 14.2H 12/12/18 04:50: Iron Level 35L, Total Iron Binding Capacity 105L, Percent Iron Saturation 33, Unsaturated Iron Binding 70L Current Medications Medications (Trade) Dose Ordered Sig/Mary Route PRN Reason Start Time Stop Time Status Last Admin Dose Admin Acetaminophen (Tylenol) 650 mg Q4H PRN ORAL Mild Pain (Pain Scale 1-3) 12/08/18 15:45 01/07/19 15:44 Acetaminophen (Tylenol) 650 mg Q4H PRN ORAL fever 12/08/18 15:45 01/07/19 15:44 Al Hydroxide/Mg Hydroxide (Mylanta II) 30 ml Q6H PRN ORAL dyspepsia 12/08/18 15:45 01/07/19 15:44 Albuterol/ Ipratropium (Albuterol/ Ipratropium) 3 ml Q4H PRN HHN Shortness of Breath 12/08/18 15:45 12/13/18 15:44 12/11/18 22:06 Aspirin (Ecotrin) 81 mg DAILY ORAL 12/09/18 09:00 01/08/19 08:59 12/12/18 09:13 Azithromycin (Zithromax) 250 mg DAILY ORAL 12/09/18 09:00 12/16/18 08:59 12/12/18 09:13 Bisacodyl (Dulcolax) 10 mg HSPRN PRN RECTAL Constipation 12/08/18 15:45 01/07/19 15:44 Carbidopa/Levodopa (Sinemet 25/100) 1 tab THREE TIMES A DAY ORAL 12/08/18 18:00 01/07/19 17:59 12/12/18 13:09 Dextrose (Dextrose 50%) 25 ml Q30M PRN IV Hypoglycemia 12/08/18 15:45 01/07/19 15:44 Dextrose (Dextrose 50%) 50 ml Q30M PRN IV Hypoglycemia 12/08/18 15:45 01/07/19 15:44 Diphenhydramine HCl (Benadryl) 25 mg Q6H PRN ORAL Itching/Pruritis 12/08/18 15:45 01/07/19 15:44 Docusate Sodium (Colace) 100 mg EVERY 12 HOURS ORAL 12/08/18 21:00 01/07/19 20:59 12/11/18 20:34 Donepezil HCl (Aricept) 10 mg DAILY ORAL 12/09/18 09:00 01/08/19 08:59 12/12/18 09:13 Heparin Sodium (Porcine) (Heparin 5000 units/ml) 5,000 units EVERY 8 HOURS SUBQ 12/08/18 22:00 01/07/19 21:59 12/12/18 13:12 Magnesium Hydroxide (Mom) 30 ml HSPRN PRN ORAL Constipation 12/08/18 15:45 01/07/19 15:44 Mirtazapine (Remeron) 15 mg BEDTIME ORAL 12/08/18 21:00 01/07/19 20:59 12/11/18 20:34 Morphine Sulfate (Morphine Sulfate) 2 mg Q6H PRN IVP Moderate Pain (Pain Scale 4-6) 12/08/18 15:45 12/15/18 15:44 Morphine Sulfate (Morphine Sulfate) 4 mg Q6H PRN IVP Severe Pain (Pain Scale 7-10) 12/08/18 15:45 12/15/18 15:44 Nitroglycerin (Ntg) 0.4 mg Q5M X 3 DOSES PRN SL Prn Chest Pain 12/08/18 15:45 01/07/19 15:44 Ondansetron HCl (Zofran) 4 mg Q6H PRN IVP Nausea & Vomiting 12/08/18 15:45 01/07/19 15:44 Pantoprazole (Protonix) 40 mg DAILY ORAL 12/11/18 09:00 01/10/19 08:59 12/12/18 09:13 Piperacillin Sod/ Tazobactam Sod 3.375 gm/Dextrose 100 ml @ 25 mls/hr Q8H IVPB 12/09/18 07:30 12/16/18 07:29 12/12/18 06:46 Polyethylene Glycol (Miralax) 17 gm HSPRN PRN ORAL Constipation 12/08/18 15:45 01/07/19 15:44 Sodium Chloride 1,000 ml @ 75 mls/hr [id number] IV 12/08/18 16:00 01/07/19 15:59 12/11/18 20:38 Temazepam (Restoril) 15 mg HSPRN PRN ORAL Insomnia 12/08/18 15:45 12/15/18 15:44 Vancomycin HCl (Vanco rx to dose) 1 ea DAILY PRN MISC Per rx protocol 12/08/18 15:45 01/07/19 15:44 Vancomycin HCl 1 gm/Dextrose 275 ml @ 183.708 mls/hr Q12HR@0800,2000 IVPB 12/10/18 10:00 12/15/18 09:59 12/12/18 09:13 Chris Lunsford MD Dec 12, 2018 13:24
[2018-12-12] MEDS ORDERED: metroNIDAZOLE 500mg tab ORAL SCH (14:00)
--- NOTE | 2018-12-12 14:00 | Hematology/Onc Progress Note ---
Assessment/Plan Assessment/Plan ASSESSMENT AND REC'S 1.Leukocytosis/elevated white blood cell count, likely due to Multifocal PNA --> have reviewed peripheral smear --> On antibiotics, followed by ID team, Appreciate recs, --> CXR reviewed pathcy Multifocal PNA, CT Chest reviewed from 06/2017 --> continue to monitor --> wbc trend 10.5 2. Pulmonary Lung Nodule --> Pulmo following appreciate rec's. --> 12/08/18 CXR: Dense patchy LLL > R infiltrates 06/2017 CT:Impression: Multiple bilateral nodular and irregular parenchymal opacities, as described above. Association with bronchiectasis suggests that to large extent these represent chronic postinflammatory lesions. However, some lesions, particularly in the right upper lobe and left lower lobe are more masslike in appearance. This raises concern for neoplasm, possibly multifocal. Note that some of the lesions also appear cavitary, although this appearance may be just due to fibrosis surrounding bronchiectatic bronchi Mild hyperinflation suggestive of COPD Small to moderate sliding-type hiatal hernia Small anterior pericardial effusion Incidental findings of left renal parapelvic cysts, degenerative spondylosis --> Daughter stated history of being diagnosed with Lung cancer in 2004, however no confrimation and diagnosis was incorrect we will order CEA level for now. --> Per Pulmo no further work-up due to GOC..has been discussed with daughter. POLST Reviewed with daughter DNR, Comfort care. 3. PNA --> On abx treatment and ID and Pulmo following. --> Aspirations precuations 4.Parkinson's Disease --> Bilat hand tremors --> continue current care 5. Dementia --> Daughter Collen P.O.A continue supportive care 6. DJD 7.GERD The timing of this note does not necessarily reflect the time of the patient was seen. GREATLY APPRECIATE CONSULTATION. Subjective Allergies: Coded Allergies: DICLOFENAC (Verified Allergy, Unknown, 07/11/17) SULFA (SULFONAMIDE ANTIBIOTICS) (Verified Allergy, Unknown, 07/11/17) SULFAMETHOXAZOLE (Verified Allergy, Unknown, 07/11/17) TRIMETHOPRIM (Verified Allergy, Unknown, 07/11/17) Subjective 12/11: Pt no SOB or wheezing. VS stable 12/12: Pt awake in bed, daughter at bedside. No acute events. DC planning. Objective Objective Current Medications Medications (Trade) Dose Ordered Sig/Mary Route PRN Reason Start Time Stop Time Status Last Admin Dose Admin Acetaminophen (Tylenol) 650 mg Q4H PRN ORAL Mild Pain (Pain Scale 1-3) 12/08/18 15:45 01/07/19 15:44 Acetaminophen (Tylenol) 650 mg Q4H PRN ORAL fever 12/08/18 15:45 01/07/19 15:44 Al Hydroxide/Mg Hydroxide (Mylanta II) 30 ml Q6H PRN ORAL dyspepsia 12/08/18 15:45 01/07/19 15:44 Albuterol/ Ipratropium (Albuterol/ Ipratropium) 3 ml Q4H PRN HHN Shortness of Breath 12/08/18 15:45 12/13/18 15:44 12/11/18 22:06 Aspirin (Ecotrin) 81 mg DAILY ORAL 12/09/18 09:00 01/08/19 08:59 12/12/18 09:13 Bisacodyl (Dulcolax) 10 mg HSPRN PRN RECTAL Constipation 12/08/18 15:45 01/07/19 15:44 Carbidopa/Levodopa (Sinemet 25/100) 1 tab THREE TIMES A DAY ORAL 12/08/18 18:00 01/07/19 17:59 12/12/18 13:09 Ceftriaxone Sodium 1 gm/ Dextrose 55 ml @ 110 mls/hr Q24H IVPB 12/12/18 15:00 12/17/18 14:59 Dextrose (Dextrose 50%) 25 ml Q30M PRN IV Hypoglycemia 12/08/18 15:45 01/07/19 15:44 Dextrose (Dextrose 50%) 50 ml Q30M PRN IV Hypoglycemia 12/08/18 15:45 01/07/19 15:44 Diphenhydramine HCl (Benadryl) 25 mg Q6H PRN ORAL Itching/Pruritis 12/08/18 15:45 01/07/19 15:44 Docusate Sodium (Colace) 100 mg EVERY 12 HOURS ORAL 12/08/18 21:00 01/07/19 20:59 12/11/18 20:34 Donepezil HCl (Aricept) 10 mg DAILY ORAL 12/09/18 09:00 01/08/19 08:59 12/12/18 09:13 Heparin Sodium (Porcine) (Heparin 5000 units/ml) 5,000 units EVERY 8 HOURS SUBQ 12/08/18 22:00 01/07/19 21:59 12/12/18 13:12 Magnesium Hydroxide (Mom) 30 ml HSPRN PRN ORAL Constipation 12/08/18 15:45 01/07/19 15:44 Metronidazole (Flagyl) 500 mg Q8HR ORAL 12/12/18 14:00 12/17/18 13:59 Mirtazapine (Remeron) 15 mg BEDTIME ORAL 12/08/18 21:00 01/07/19 20:59 12/11/18 20:34 Morphine Sulfate (Morphine Sulfate) 2 mg Q6H PRN IVP Moderate Pain (Pain Scale 4-6) 12/08/18 15:45 12/15/18 15:44 Morphine Sulfate (Morphine Sulfate) 4 mg Q6H PRN IVP Severe Pain (Pain Scale 7-10) 12/08/18 15:45 12/15/18 15:44 Nitroglycerin (Ntg) 0.4 mg Q5M X 3 DOSES PRN SL Prn Chest Pain 12/08/18 15:45 01/07/19 15:44 Ondansetron HCl (Zofran) 4 mg Q6H PRN IVP Nausea & Vomiting 12/08/18 15:45 01/07/19 15:44 Pantoprazole (Protonix) 40 mg DAILY ORAL 12/11/18 09:00 01/10/19 08:59 12/12/18 09:13 Polyethylene Glycol (Miralax) 17 gm HSPRN PRN ORAL Constipation 12/08/18 15:45 01/07/19 15:44 Sodium Chloride 1,000 ml @ 75 mls/hr [id number] IV 12/08/18 16:00 01/07/19 15:59 12/11/18 20:38 Temazepam (Restoril) 15 mg HSPRN PRN ORAL Insomnia 12/08/18 15:45 12/15/18 15:44 Last 24 Hour Vital Signs Date Time Temp Pulse Resp B/P (MAP) Pulse Ox O2 Delivery O2 Flow Rate FiO2 12/12/18 12:00 97.9 78 19 132/65 (87) 78 12/12/18 09:00 Room Air 12/12/18 08:00 97.6 83 18 130/61 (84) 97 12/12/18 07:00 74 16 98 Room Air 21 12/12/18 04:00 98.1 75 18 158/75 (102) 96 12/12/18 00:00 98.2 85 18 148/75 (99) 97 12/11/18 22:07 81 16 94 Room Air 21 12/11/18 21:00 Room Air 12/11/18 20:00 98.2 83 20 131/71 (91) 97 12/11/18 19:17 90 18 98 Room Air 21 12/11/18 16:00 98.4 92 18 152/81 (104) 97 12/11/18 12:00 98.6 83 18 150/75 (100) 98 12/11/18 09:00 Room Air 12/11/18 08:00 97.9 84 18 126/59 (81) 97 12/11/18 07:19 79 18 96 Room Air 21 12/11/18 04:28 97.8 72 18 115/66 (82) 95 12/11/18 00:00 97.8 84 19 131/64 (86) 93 12/10/18 21:00 Room Air 12/10/18 20:00 97.6 79 18 126/63 (84) 92 12/10/18 19:19 82 18 94 Room Air 21 12/10/18 16:00 98.1 80 17 154/85 (108) 94 Intake and Output 12/11/18 12/12/18 19:00 07:00 Intake Total 1842.5 ml 315 ml Balance 1842.5 ml 315 ml Intake Oral 480 ml 240 ml IV Total 1362.5 ml 75 ml # Voids 2 7 # Bowel Movements 3 4 Labs Test 12/10/18 08:30 12/11/18 06:51 12/11/18 19:35 12/12/18 04:50 Carcinoembryonic Antigen 1.8 ng/mL (0.0-4.7) Vancomycin Level Trough 5.3 ug/mL (5.0-12.0) 14.2 ug/mL (5.0-12.0) White Blood Count 10.5 K/UL (4.8-10.8) Red Blood Count 3.42 M/UL (4.20-5.40) Hemoglobin 10.4 G/DL (12.0-16.0) Hematocrit 32.0 % (37.0-47.0) Mean Corpuscular Volume 93 FL (80-99) Mean Corpuscular Hemoglobin 30.3 PG (27.0-31.0) Mean Corpuscular Hemoglobin Concent 32.4 G/DL (32.0-36.0) Red Cell Distribution Width 12.4 % (11.6-14.8) Platelet Count 568 K/UL (150-450) Mean Platelet Volume 6.1 FL (6.5-10.1) Neutrophils (%) (Auto) 83.2 % (45.0-75.0) Lymphocytes (%) (Auto) 5.8 % (20.0-45.0) Monocytes (%) (Auto) 6.8 % (1.0-10.0) Eosinophils (%) (Auto) 2.9 % (0.0-3.0) Basophils (%) (Auto) 1.4 % (0.0-2.0) Sodium Level 144 MMOL/L (136-145) Potassium Level 3.4 MMOL/L (3.5-5.1) Chloride Level 109 MMOL/L (98-107) Carbon Dioxide Level 26 MMOL/L (21-32) Anion Gap 9 mmol/L (5-15) Blood Urea Nitrogen 10 mg/dL (7-18) Creatinine 0.7 MG/DL (0.55-1.30) Estimat Glomerular Filtration Rate mL/min (>60) Glucose Level 94 MG/DL (74-106) Calcium Level 8.6 MG/DL (8.5-10.1) Iron Level 35 ug/dL (50-175) Total Iron Binding Capacity 105 ug/dL (250-450) Percent Iron Saturation 33 % (15-50) Unsaturated Iron Binding 70 ug/dL (112-346) Height (Feet): 5 Height (Inches): 4.00 Weight (Pounds): 131 Objective PE: Head: normocephalic, atraumatic Eyes: bilateral eye normal inspection, bilateral eye PERRL ENT: hearing grossly normal, normal pharynx, no angioedema, normal voice Neck: full range of motion, supple/symm/no masses Respiratory: chest non-tender, lungs clear, crackles, speaking full sentences Cardiovascular: regular rate, rhythm, no edema Gastrointestinal: normal bowel sounds, non tender, soft, non-distended, no guarding, no rebound Genitourinary: normal inspection, no CVA tenderness Musculoskeletal: back normal, gait/station normal, normal range of motion, non- tender Neurologic: alert, oriented x2, + tremors bilat hands Psychiatric: judgement/insight normal, memory normal, mood/affect normal, no suicidal/homicidal ideation Manpreet Jiang MD Dec 12, 2018 14:00
[2018-12-12] MEDS ORDERED: CEFTRIAXON1 GM/50 ML IV (14:15)
[2018-12-12] MEDS ORDERED: FLAGYL500 MG ORAL (14:15)
--- NOTE | 2018-12-12 14:38 | Infectious Diseases Prog Note ---
Assessment/Plan Assessment/Plan A) 1) pneumonia - ? aspiration, ? cap, gram neg uti, sepsis, leukocytosis, fevers 2) Parkinson's dx, dementia, djd, gerd, HH, anemia, oa, ftt, mtn 3) allergies - sulfa, dicofenac, bactrim 4) fh-nc, mar noted, d/w RN, sh-negative 5) notes and records noted P) 1) rocephin and flagyl x 5 days 2) f/u on urine culture final, mycoplasma and legionella testing is negative 3) clinically better, monitor labs and chest x-ray 4) continue treatment per primary team and consultants 5) d/w patient and daughter 6) d/w Dr. Lo about tx plan and abx and discharge planning 7) stable from ID standpoint Subjective Constitutional: Denies: fever HEENT: Denies: congestion Respiratory: Denies: shortness of breath Cardiovascular: Denies: chest pain Gastrointestinal/Abdominal: Denies: nausea, vomiting, diarrhea Genitourinary: Reports: other - no suazo Neurologic: Denies: headache Psychiatric: Denies: depression Skin: Denies: rash Hematologic: Denies: bleeding Musculoskeletal: Denies: pain Allergies: Coded Allergies: DICLOFENAC (Verified Allergy, Unknown, 07/11/17) SULFA (SULFONAMIDE ANTIBIOTICS) (Verified Allergy, Unknown, 07/11/17) SULFAMETHOXAZOLE (Verified Allergy, Unknown, 07/11/17) TRIMETHOPRIM (Verified Allergy, Unknown, 07/11/17) Objective Vital Signs Last 24 Hour Vital Signs Date Time Temp Pulse Resp B/P (MAP) Pulse Ox O2 Delivery O2 Flow Rate FiO2 12/12/18 12:00 97.9 78 19 132/65 (87) 78 12/12/18 09:00 Room Air 12/12/18 08:00 97.6 83 18 130/61 (84) 97 12/12/18 07:00 74 16 98 Room Air 21 12/12/18 04:00 98.1 75 18 158/75 (102) 96 12/12/18 00:00 98.2 85 18 148/75 (99) 97 12/11/18 22:07 81 16 94 Room Air 21 12/11/18 21:00 Room Air 12/11/18 20:00 98.2 83 20 131/71 (91) 97 12/11/18 19:17 90 18 98 Room Air 21 12/11/18 16:00 98.4 92 18 152/81 (104) 97 Height (Feet): 5 Height (Inches): 4.00 Weight (Pounds): 131 General Appearance: no acute distress HEENT: normocephalic, atraumatic, anicteric, mucous membranes moist Respiratory/Chest: lungs clear, normal breath sounds, no respiratory distress, no accessory muscle use Cardiovascular: normal rate, regular rhythm, no gallop/murmur, no JVD Abdomen: normal bowel sounds, soft, non tender, no organomegaly, non distended Genitourinary: other - no suazo Extremities: no cyanosis Skin: no rash Neurologic/Psychiatric: shot packer II-XII grossly normal, alert, responsive Lymphatic: no neck adenopathy Musculoskeletal: no effusion Objective Chest x-ray - 12/08/18 - FINDINGS: Lungs: Patchy consolidation throughout the left mid and lower lung and mild consolidation in bilateral lung apices, concerning for multifocal pneumonia. Pleural space: Unremarkable. The costophrenic angles are sharp. No visible pneumothorax. Heart: Unremarkable. No cardiomegaly. Mediastinum: Unremarkable. Bones/joints: Degenerative changes of the visualized shoulder joints and spine. Vasculature: Atherosclerotic calcifications are noted within the aortic arch. Tubes, lines and devices: Telemetry leads overlie the thorax. IMPRESSION: Patchy consolidation throughout the left mid and lower lung and mild consolidation in bilateral lung apices, concerning for multifocal pneumonia. Chest x-ray - 12/10/18 - Procedure: XRAY Chest 1v Indication: Dyspnea Comparison: 12/08/2018 A single view chest radiograph was obtained. Findings: Infiltrates noted within the left mid lung, left lung base and right upper lobe. Some of the areas appear nodular especially in the right upper lobe. There is evidence of a left subpulmonic effusion. Heart size is stable. IMPRESSION: Relatively stable appearance with bilateral infiltrates. While probably inflammatory/infectious, neoplasm is not excludable as some of the densities are nodular. Consider follow-up evaluation with CT. Microbiology Date/Time Source Procedure Growth Status 12/08/18 12:45 Blood Blood Culture - Preliminary NO GROWTH AFTER 72 HOURS Resulted 12/08/18 14:00 Nasal Nares MRSA Culture - Final NO METHICILLIN RESISTANT STAPH AUREUS... Complete 12/08/18 13:12 Urine,Clean Catch Urine Culture - Preliminary Gram Negative Bacillus 1 Resulted 12/08/18 14:00 Rectum VRE Culture - Final NO VANCOMYCIN RESISTANT ENTEROCOCCUS ... Complete 12/08/18 14:00 Rectum - Final NO CARBAPENEM-RESISTANT ENTEROBACTERI... Complete Labs Test 12/10/18 08:30 12/11/18 06:51 12/11/18 19:35 12/12/18 04:50 Carcinoembryonic Antigen 1.8 ng/mL (0.0-4.7) Vancomycin Level Trough 5.3 ug/mL (5.0-12.0) 14.2 ug/mL (5.0-12.0) White Blood Count 10.5 K/UL (4.8-10.8) Red Blood Count 3.42 M/UL (4.20-5.40) Hemoglobin 10.4 G/DL (12.0-16.0) Hematocrit 32.0 % (37.0-47.0) Mean Corpuscular Volume 93 FL (80-99) Mean Corpuscular Hemoglobin 30.3 PG (27.0-31.0) Mean Corpuscular Hemoglobin Concent 32.4 G/DL (32.0-36.0) Red Cell Distribution Width 12.4 % (11.6-14.8) Platelet Count 568 K/UL (150-450) Mean Platelet Volume 6.1 FL (6.5-10.1) Neutrophils (%) (Auto) 83.2 % (45.0-75.0) Lymphocytes (%) (Auto) 5.8 % (20.0-45.0) Monocytes (%) (Auto) 6.8 % (1.0-10.0) Eosinophils (%) (Auto) 2.9 % (0.0-3.0) Basophils (%) (Auto) 1.4 % (0.0-2.0) Sodium Level 144 MMOL/L (136-145) Potassium Level 3.4 MMOL/L (3.5-5.1) Chloride Level 109 MMOL/L (98-107) Carbon Dioxide Level 26 MMOL/L (21-32) Anion Gap 9 mmol/L (5-15) Blood Urea Nitrogen 10 mg/dL (7-18) Creatinine 0.7 MG/DL (0.55-1.30) Estimat Glomerular Filtration Rate mL/min (>60) Glucose Level 94 MG/DL (74-106) Calcium Level 8.6 MG/DL (8.5-10.1) Iron Level 35 ug/dL (50-175) Total Iron Binding Capacity 105 ug/dL (250-450) Percent Iron Saturation 33 % (15-50) Unsaturated Iron Binding 70 ug/dL (112-346) Laboratory Tests Test 12/11/18 19:35 12/12/18 04:50 Vancomycin Level Trough 14.2 ug/mL (5.0-12.0) H Iron Level 35 ug/dL (50-175) L Total Iron Binding Capacity 105 ug/dL (250-450) L Percent Iron Saturation 33 % (15-50) Unsaturated Iron Binding 70 ug/dL (112-346) L Current Medications Medications (Trade) Dose Ordered Sig/Mary Route PRN Reason Start Time Stop Time Status Last Admin Dose Admin Acetaminophen (Tylenol) 650 mg Q4H PRN ORAL Mild Pain (Pain Scale 1-3) 12/08/18 15:45 01/07/19 15:44 Acetaminophen (Tylenol) 650 mg Q4H PRN ORAL fever 12/08/18 15:45 01/07/19 15:44 Al Hydroxide/Mg Hydroxide (Mylanta II) 30 ml Q6H PRN ORAL dyspepsia 12/08/18 15:45 01/07/19 15:44 Albuterol/ Ipratropium (Albuterol/ Ipratropium) 3 ml Q4H PRN HHN Shortness of Breath 12/08/18 15:45 12/13/18 15:44 12/11/18 22:06 Aspirin (Ecotrin) 81 mg DAILY ORAL 12/09/18 09:00 01/08/19 08:59 12/12/18 09:13 Bisacodyl (Dulcolax) 10 mg HSPRN PRN RECTAL Constipation 12/08/18 15:45 01/07/19 15:44 Carbidopa/Levodopa (Sinemet 25/100) 1 tab THREE TIMES A DAY ORAL 12/08/18 18:00 01/07/19 17:59 12/12/18 13:09 Ceftriaxone Sodium 1 gm/ Dextrose 55 ml @ 110 mls/hr Q24H IVPB 12/12/18 15:00 12/17/18 14:59 Dextrose (Dextrose 50%) 25 ml Q30M PRN IV Hypoglycemia 12/08/18 15:45 01/07/19 15:44 Dextrose (Dextrose 50%) 50 ml Q30M PRN IV Hypoglycemia 12/08/18 15:45 01/07/19 15:44 Diphenhydramine HCl (Benadryl) 25 mg Q6H PRN ORAL Itching/Pruritis 12/08/18 15:45 01/07/19 15:44 Docusate Sodium (Colace) 100 mg EVERY 12 HOURS ORAL 12/08/18 21:00 01/07/19 20:59 12/11/18 20:34 Donepezil HCl (Aricept) 10 mg DAILY ORAL 12/09/18 09:00 01/08/19 08:59 12/12/18 09:13 Heparin Sodium (Porcine) (Heparin 5000 units/ml) 5,000 units EVERY 8 HOURS SUBQ 12/08/18 22:00 01/07/19 21:59 12/12/18 13:12 Magnesium Hydroxide (Mom) 30 ml HSPRN PRN ORAL Constipation 12/08/18 15:45 01/07/19 15:44 Metronidazole (Flagyl) 500 mg Q8HR ORAL 12/12/18 14:00 12/17/18 13:59 Mirtazapine (Remeron) 15 mg BEDTIME ORAL 12/08/18 21:00 01/07/19 20:59 12/11/18 20:34 Morphine Sulfate (Morphine Sulfate) 2 mg Q6H PRN IVP Moderate Pain (Pain Scale 4-6) 12/08/18 15:45 12/15/18 15:44 Morphine Sulfate (Morphine Sulfate) 4 mg Q6H PRN IVP Severe Pain (Pain Scale 7-10) 12/08/18 15:45 12/15/18 15:44 Nitroglycerin (Ntg) 0.4 mg Q5M X 3 DOSES PRN SL Prn Chest Pain 12/08/18 15:45 01/07/19 15:44 Ondansetron HCl (Zofran) 4 mg Q6H PRN IVP Nausea & Vomiting 12/08/18 15:45 01/07/19 15:44 Pantoprazole (Protonix) 40 mg DAILY ORAL 12/11/18 09:00 01/10/19 08:59 12/12/18 09:13 Polyethylene Glycol (Miralax) 17 gm HSPRN PRN ORAL Constipation 12/08/18 15:45 01/07/19 15:44 Sodium Chloride 1,000 ml @ 75 mls/hr [id number] IV 12/08/18 16:00 01/07/19 15:59 12/11/18 20:38 Temazepam (Restoril) 15 mg HSPRN PRN ORAL Insomnia 12/08/18 15:45 12/15/18 15:44 Hardy Alexander MD Dec 12, 2018 14:38
[2018-12-12] MEDS ORDERED: cefTRIAXone 1 GM in D5W 55 ML IVPB SCH (15:00)
--- NOTE | 2018-12-12 15:33 | NUR ---
DISCHARGE PLANNED PATIENT WILL DISCHARGE TO [facility] (SNF SIDE) ROOM [address] SKILLED T: [phone] FOR NURSE TO NURSE REPORT [facility] HAS BEEN ARRANGED FOR 1730 TRANSITION NURSE (AFTER DINNER) TRANSFER FORM COMPLETED
[2018-12-12 16:00] VITALS: BP 117/72
--- NOTE | 2018-12-12 16:30 | NUR ---
NURSE NOTES: PLACED CALL TO RUBEN FERRER TO GIVE REPORT TO LI MAHMOOD. CHART COPIED WITH CURRENT MEDICATION LIST. DAUGHTERNICO AWARE OF TRANSFER. HERE AT BEDSIDE. PATIENT TO BE PICKED UP B Y [facility] @ 1730. NO BELONGINGS WITH PATIENT. SENT HOME WITH DAUGHTER, Malia CALDERON.
--- NOTE | 2018-12-12 18:30 | NUR ---
NURSE NOTES: [facility] HERE TO [employer] PATIENT. REPORT GIVEN. DAUGHTER AT BEDSIDE. NO BELONGINGS.
[2018-12-12] MEDS ORDERED: Tubing IV Secondary IV ONE (18:49)
--- NOTE | 2018-12-12 21:01 | Discharge Summary ---
Discharge Summary Hospital Course Date of Admission Dec 08, 2018 at 13:16 Date of Discharge Dec 12, 2018 at 18:50 Admitting Diagnosis Weakness, fever HPI Elen Ely is a 83 year old female who was admitted on Dec 08, 2018 at 13: 16 for Weakness,Fever Hospital Course 83 y/o female [facility] resident, presenting with fever found to have multifocal healthcare associated pneumonia, now on broad spectrum IV abx #Sepsis due to Healthcare Associated pneumonia #Multifocal L sided infiltrates #Lung nodules - Apprec pulm input - No need for workup of lung nodules - Vanco/zosyn/azithro - Supp resp care - Gentle IV fluids - Aspiration precautions #Sepsis due to UTI - Cont IV abx per ID - f/u urine cx #Severe Protein Calorie Malnutrition - Monitor nutritional status - Nutrition consult #Hypomagnesemia - replete Mag #parkinsons disease/Dementia - Cont carbidopa/levodopa - Cont aricept DVT ppx: hep subq Code: DNAR/DNI Discharge Discharge Disposition Patient was discharged to [facility] MD Dec 12, 2018 21:01
--- NOTE | 2018-12-14 16:24 | Cardiology Report ---
APPROVED REPORT EKG Measurement Heart [id number] ID [id number] Sinus rhythm with premature supraventricular complexes Possible Left atrial enlargement Borderline ECG
== END 2018-12-12 18:50 | DRG 871 ==
LOC: EDBD 12:15 → EMR 13:10 → 3E 13:16 → EDBEDREQ 13:33
DX: A41.9 Sepsis, unspecified organism (principal); J18.9 Pneumonia, unspecified organism; E43 Unspecified severe protein-calorie malnutrition; N39.0 Urinary tract infection, site not specified; Z88.1 Allergy status to other antibiotic agents; Z88.2 Allergy status to sulfonamides; Z88.8 Allergy status to other drugs, medicaments and biological substances; K21.9 Gastro-esophageal reflux disease without esophagitis; G20 Parkinson's disease; F02.80 Dementia in other diseases classified elsewhere, unspecified severity, without behavioral disturbance, psychotic disturbance, mood disturbance, and anxiety; Y95 Nosocomial condition; E83.42 Hypomagnesemia; R13.10 Dysphagia, unspecified; K44.9 Diaphragmatic hernia without obstruction or gangrene; R91.8 Other nonspecific abnormal finding of lung field; M16.0 Bilateral primary osteoarthritis of hip; R62.7 Adult failure to thrive; Z66 Do not resuscitate
CPT/HCPCS: 36415; 71045; 80048; 80053; 80202; 81003; 82164; 82378; 83540; 83550; 83605; 83735; 83880; 85007; 85025; 86738; 87040; 87081; 87086; 87181; 93005; 94640; 94664; 96365; 99285; J7620; J8499

== ENCOUNTER 2019-04-12 15:04 | Inpatient (IN) | payer MEDICARE, BC ==
[~2019-04-12] VITALS: Ht 165.1 cm; Wt 49.9 kg
[~2019-04-12 15:04] MED LIST changes: +AMBIEN5 MG ORAL; +ATIVAN2 MG/1 ML IV; +CEFTRIAXON1 GM/50 ML IV; +DEXTROSE 50%-WA50 M1 IV; +FLAGYL500 MG ORAL; +MYLANTA30 M1 ORAL; +PCA MORPHINE1 MG/ML IV; +POLYETHYLENE GL17 GM ORAL; +TYLENOL EXTRA500 MG ORAL; +ZOFRAN 4 MG4 MG/2 ML IV
--- NOTE | 2019-04-12 15:09 | Emergency Room Report ---
History of Present Illness General Chief Complaint: Fever Source: Family Member, Medical Record, Caregiver Present Illness HPI 83-year-old female history of Parkinson's, dementia, history of dysphasia, pneumonia in the past presents with generalized weakness, fever x1 day aggravated by infection alleviated by Tylenol, severity is severe, constant symptoms started yesterday, measured temperatures of 101, patient unable to give a history secondary to her dementia, collateral history obtained from daughter, and paramedics. Patient presents for sepsis work-up Allergies: Coded Allergies: DICLOFENAC (Verified Allergy, Unknown, 07/11/17) SULFA (SULFONAMIDE ANTIBIOTICS) (Verified Allergy, Unknown, 07/11/17) SULFAMETHOXAZOLE (Verified Allergy, Unknown, 07/11/17) TRIMETHOPRIM (Verified Allergy, Unknown, 07/11/17) Patient History Limited by: medical condition - Dementia Past Medical History: see triage record Reviewed Nursing Documentation: PMH: Agreed; PSxH: Agreed Nursing Documentation-PMH Hx Dementia: Yes Hx Parkinson's Disease: Yes Hx Tremors: Yes Hx Weakness: Yes Review of Systems All Other Systems: limited - Dementia Physical Exam Sp02 EP Interpretation: reviewed, normal General Appearance: alert, cachetic Head: normocephalic, atraumatic Eyes: bilateral eye PERRL, bilateral eye EOMI ENT: uvula midline, dry mucus membranes Neck: supple, thyroid normal, supple/symm/no masses Respiratory: lungs clear, no respiratory distress, no retraction, no accessory muscle use Cardiovascular #1: normal peripheral pulses, regular rate, rhythm, no edema, no gallop, no murmur Gastrointestinal: non tender, soft, no guarding, no rebound Musculoskeletal: normal inspection Neurologic: alert, responsive Psychiatric: mood/affect normal Skin: no rash, warm/dry Medical Decision Making Diagnostic Impression: Primary Impression: Sepsis Qualified Codes: A41.9 - Sepsis, unspecified organism Additional Impressions: Pneumonia Qualified Codes: J18.9 - Pneumonia, unspecified organism UTI (urinary tract infection) Qualified Codes: N30.00 - Acute cystitis without hematuria Dehydration ER Course 83-year-old female presents with fever, chills, history of dysphasia, differential diagnosis includes urosepsis, pneumonia, sepsis, dehydration Broad-spectrum anabiotic started, patient with a white count of 18, Reevaluation 4:53 PM, patient is improving Patient admitted to Dr. Eric who is covering [facility] Laboratory Tests Test 04/12/19 15:30 04/12/19 15:47 White Blood Count 18.4 K/UL (4.8-10.8) H Red Blood Count 3.60 M/UL (4.20-5.40) L Hemoglobin 10.7 G/DL (12.0-16.0) L Hematocrit 32.8 % (37.0-47.0) L Mean Corpuscular Volume 91 FL (80-99) Mean Corpuscular Hemoglobin 29.7 PG (27.0-31.0) Mean Corpuscular Hemoglobin Concent 32.6 G/DL (32.0-36.0) Red Cell Distribution Width 12.7 % (11.6-14.8) Platelet Count 441 K/UL (150-450) Mean Platelet Volume 6.4 FL (6.5-10.1) L Neutrophils (%) (Auto) % (45.0-75.0) Lymphocytes (%) (Auto) % (20.0-45.0) Monocytes (%) (Auto) % (1.0-10.0) Eosinophils (%) (Auto) % (0.0-3.0) Basophils (%) (Auto) % (0.0-2.0) Differential Total Cells Counted 100 Neutrophils % (Manual) 90 % (45-75) H Lymphocytes % (Manual) 9 % (20-45) L Monocytes % (Manual) 1 % (1-10) Eosinophils % (Manual) 0 % (0-3) Basophils % (Manual) 0 % (0-2) Band Neutrophils 0 % (0-8) Platelet Estimate Increased H Platelet Morphology Normal Red Blood Cell Morphology Normal Prothrombin Time 11.0 SEC (9.30-11.50) Prothrombin Time INR 1.0 (0.9-1.1) PTT 36 SEC (23-33) H Sodium Level 144 MMOL/L (136-145) Potassium Level 3.6 MMOL/L (3.5-5.1) Chloride Level 106 MMOL/L (98-107) Carbon Dioxide Level 28 MMOL/L (21-32) Anion Gap 10 mmol/L (5-15) Blood Urea Nitrogen 21 mg/dL (7-18) H Creatinine 0.7 MG/DL (0.55-1.30) Estimate Glomerular Filtration Rate mL/min (>60) Glucose Level 97 MG/DL (74-106) Lactic Acid Level 1.50 mmol/L (0.4-2.0) Calcium Level 8.9 MG/DL (8.5-10.1) Phosphorus Level 2.8 MG/DL (2.5-4.9) Magnesium Level 2.2 MG/DL (1.8-2.4) Total Bilirubin 0.3 MG/DL (0.2-1.0) Aspartate Amino Transferase (AST) 17 U/L (15-37) Alanine Aminotransferase (ALT) 13 U/L (12-78) Alkaline Phosphatase 139 U/L (46-116) H Total Creatine Kinase 71 U/L (26-308) Creatine Kinase MB 0.6 NG/ML (0.0-3.6) Creatine Kinase MB Relative Index 0.8 Troponin I 0.000 ng/mL (0.000-0.056) Pro-B-Type Natriuretic Peptide 1493 pg/mL (0-125) H Total Protein 6.0 G/DL (6.4-8.2) L Albumin 1.9 G/DL (3.4-5.0) L Globulin 4.1 g/dL Albumin/Globulin Ratio 0.5 (1.0-2.7) L Lipase 59 U/L (73-393) L Urine Color Yellow Urine Appearance Slightly cloudy Urine pH 5 (4.5-8.0) Urine Specific [place] 1.020 (1.005-1.035) Urine Protein 2+ (NEGATIVE) H Urine Glucose (UA) Negative (NEGATIVE) Urine Ketones 1+ (NEGATIVE) H Urine Blood Negative (NEGATIVE) Urine Nitrite Negative (NEGATIVE) Urine Bilirubin Negative (NEGATIVE) Urine Urobilinogen 1 MG/DL (0.0-1.0) H Urine Leukocyte Esterase 1+ (NEGATIVE) H Urine RBC 0-2 /HPF (0 - 2) Urine WBC 5-10 /HPF (0 - 2) H Urine Squamous Epithelial Cells Moderate /LPF (NONE/OCC) H Urine Bacteria Moderate /HPF (NONE) H Urine Mucus Moderate /LPF (NONE/OCC) H EKG Diagnostic Results EKG Time: 15:13 EP Interpretation: NSR, rate 79, QTc 449, no acute ST elevations, normal axis Rhythm Strip Diag. Results Rhythm Strip Time: 15:21 EP Interpretation: yes Rate: 77 Rhythm: NSR, no PVC's, no ectopy Chest X-Ray Diagnostic Results Chest X-Ray Diagnostic Results : Chest X-Ray Ordered: Yes # of Views/Limited/Complete: 1 View Indication: Shortness of Breath EP Interpretation: Yes Interpretation: other - left lobe consolidation Impression: Other - left lobe pneumonia Electronically Signed by: Damian Singh MD Disposition: ADMITTED INPATIENT Condition: Stable Damian Singh MD Apr 12, 2019 15:09
[2019-04-12] MEDS ORDERED: Cefepime HCl 2 GM in NS 110 ML IV SCH (15:15)
[2019-04-12] MEDS ORDERED: Vancomycin 1 GM in NS 275 ML IV ONE (15:15)
[2019-04-12 15:17] VITALS: BP 102/58
[2019-04-12 15:49] LABS: HEMATOCRIT 32.8 % (37.0-47.0); HEMOGLOBIN 10.7 G/DL (12.0-16.0); MEAN CORPUSCULAR VOLUME 91 FL (80-99); PLATELET COUNT 441 K/UL (150-450); RED CELL DISTRIBUTION WIDTH 12.7 % (11.6-14.8); WHITE BLOOD COUNT 18.4 K/UL (4.8-10.8)
[2019-04-12 15:57] LABS: APPEARANCE,URINE SLIGHTLY CLOUDY; BILIRUBIN, URINE NEGATIVE (NEGATIVE); GLUCOSE, URINE (UA) NEGATIVE (NEGATIVE); KETONES,URINE 1+ (NEGATIVE); LEUKOCYTE ESTERASE ,URINE 1+ (NEGATIVE); NITRITE,URINE NEGATIVE (NEGATIVE); PH,URINE 5 (4.5-8.0); PROTEIN,URINE 2+ (NEGATIVE); UROBILINOGEN,URINE 1 MG/DL (0.0-1.0)
[2019-04-12 16:03] LABS: COLOR,URINE YELLOW
[2019-04-12 16:09] LABS: ANION GAP 10 mmol/L (5-15); BLOOD UREA NITROGEN 21 mg/dL (7-18); CALCIUM 8.9 MG/DL (8.5-10.1); CARBON DIOXIDE 28 MMOL/L (21-32); CHLORIDE 106 MMOL/L (98-107); CREATININE 0.7 MG/DL (0.55-1.30); POTASSIUM 3.6 MMOL/L (3.5-5.1); SODIUM 144 MMOL/L (136-145)
[2019-04-12 16:19] LABS: ALANINE AMINOTRANSFERASE 13 U/L (12-78); ALBUMIN 1.9 G/DL (3.4-5.0); ALBUMIN/GLOBULIN RATIO 0.5 (1.0-2.7); ALKALINE PHOSPHATASE 139 U/L (46-116); ASPARTATE AMINO TRANSFERASE 17 U/L (15-37); BILIRUBIN,TOTAL 0.3 MG/DL (0.2-1.0); CKMB 0.6 NG/ML (0.0-3.6); CREATINE KINASE 71 U/L (26-308); PHOSPHORUS 2.8 MG/DL (2.5-4.9)
--- NOTE | 2019-04-12 16:31 | Diagnostic Imaging Report ---
Indication: Reason For Exam: AMS Technique: One view of the chest Comparison: 12/10/2018 Findings: There is interstitial and airspace disease throughout the left lung, hazy airspace disease more extensive than that seen previously. Irregular opacities in the right upper lobe are again noted. There is equivocal mild interstitial prominence in the right lung. Small left pleural effusion not completely stable. There are degenerative changes of both shoulders. Impression: Diffuse left lung interstitial and airspace disease, likely reflecting pneumonia. Irregular right upper lobe opacities, also described on chest CT scan of 07/13/2017, most likely represent areas of scarring but neoplasm not completely excludable. Equivocal right lung interstitial opacities, acuity indeterminate, mild interstitial edema possible
--- NOTE | 2019-04-12 17:09 | NUR ---
ED Nurse Note: pt came in via [facility] [id number] from [facility]. pt c/o fever cough and swallowing difficulty .pt is A&Ox 1 ermd eval done blood and urine sent and cultures. pt medicated on monitor vss. pt's med recon done and belongings list done.
[2019-04-12] MEDS ORDERED: Albuterol/Ipratropium 3ml neb HHN PRN (17:45)
--- NOTE | 2019-04-12 18:30 | NUR ---
NURSE NOTES: Receiving patient from ER, nurse report given by TIMOTEO Neely. Patient's in stable condition, no s/s of distress or SOB, denies pain, AO x 1. threat monitoring analyst is applied, ID band checked. Bed low and locked, call light within reach, side rails x 3, safety precaution alarm is on. IV is saline locked, patent and asymptomatic. Patient's is NPO at this moment. Patient's belonging list went over with the nurse, family member at bedside and signed by both nurses. EKG is missing from the ER. The senior controls technician aware and noted to bring it up as soon as possible. threat monitoring analyst and charge nurse aware. Vital signs: BP 129/71, AL 86, O2 96%, Temp 98.9, RR 17. Orders are in, acknowledged and carried out.
--- NOTE | 2019-04-12 18:32 | NUR ---
ED Nurse Note: pt up to tele floor with TIMOTEO Cheney and bry
--- NOTE | 2019-04-12 19:40 | NUR ---
HAND-OFF: Report given to TIMOTEO Lopez. Plan of care endorsed. Patient's stable. .
--- NOTE | 2019-04-12 19:46 | NUR ---
NURSE NOTES: Receiving patient from TIMOTEO Gonzales, Patient's in stable condition, no s/s of distress or SOB, denies pain, AO x 1. director franchise sales on, Bed low and locked, call light within reach, side rails x 3, safety precautions, fall precautions, bed alarm is on. IV is saline locked, patent and asymptomatic. Patient's is NPO at this moment. Patient's belonging list went over with the nurse, family member at bedside and signed. will finish admission.
[2019-04-12 20:00] VITALS: BP 140/67
[2019-04-12] MEDS: Levodopa/Carbidopa 25/100 tab ORAL SCH (20:00)
--- NOTE | 2019-04-12 20:09 | History and Physical ---
History of Present Illness General Date patient seen: Apr 12, 2019 Reason for Hospitalization: Sepsis Present Illness HPI This is an 83 year old female with a PMHx Parkinsons, dementia history of small bowel resection presenting with fever, cough, generalized weakness, SOB x 1 day. patient has a history of multiple hospitlizations for aspiration pneumonia over past 1-2 years. Family has thought about hospice but has not yet fully committed. The patient has been more lethargic and spiked fever yesterday to 101. Also with productive cough and SOB. WBC showed elevated white count of 18k and patient sent to ER for evaluation. Denies chest pain, nausea, vomiting, diarrhea. In the ER patient afebrile, pulse 79, respirations 20s, BP 102/58, saturating 90 -92% on RA. WBC 18k, lactate 1.5, Chem panel WNL, Roponin negative. ProBNP 1493. Given vanc/zosyn and 1.5L of IV fluids. UA positive with 1+leuk esterase 5 -10 WBC. Endorses suprapubic tenderness. All: Diclofenac, sulfa Meds: reviewed PMhx: Parkinsons, demential Psurgical history: Small bowel resection 2004 (ulcer), hysterectomy 998 Family history Cousin with dementia and parkinsons Social history Smoked when 20-35 years old Etoh: Socially Drugs: none Allergies: Coded Allergies: DICLOFENAC (Verified Allergy, Unknown, 07/11/17) SULFA (SULFONAMIDE ANTIBIOTICS) (Verified Allergy, Unknown, 07/11/17) SULFAMETHOXAZOLE (Verified Allergy, Unknown, 07/11/17) TRIMETHOPRIM (Verified Allergy, Unknown, 07/11/17) Medication History Scheduled Acetaminophen* (Tylenol Extra Strength*), 650 MG ORAL Q4HR, (Reported) Al Hydroxide/mg Hydroxide (Mag-Al Liquid), 30 ML ORAL Q6HR, (Reported) Ascorbic Acid* (Vitamin C*), 500 MG ORAL DAILY, (Reported) Aspirin (Aspirin EC), 81 MG ORAL DAILY, (Reported) Calcium Carbonate (Calcium), 500 MG PO DAILY, (Reported) Ceftriaxone Na/Dextrose,Iso (Ceftriaxone 1 Gm Piggyback), 1 GM IV DAILY Cholecalciferol (Vitamin D3)* (Vitamin D*), 1,000 UNIT ORAL DAILY, (Reported) Cranberry (Cranberry), 400 MG PO BEDTIME, (Reported) Cyanocobalamin (Vitamin B-12) (Vitamin B12), 2,500 MCG PO DAILY, (Reported) Donepezil Hcl* (Donepezil Hcl*), 10 MG ORAL HS, (Reported) Levodopa/Carbidopa (Carbidopa-Levodopa 25-100 Tab), 1 TAB ORAL THREE TIMES A DAY Metronidazole* (Flagyl*), 500 MG ORAL Q8HR Mirtazapine* (Mirtazapine*), 15 MG ORAL BEDTIME, (Reported) Omeprazole (Omeprazole), 20 MG ORAL DAILY, (Reported) Patient History Healthcare decision maker NICO MEJIAS Resuscitation status DNR/DNI Advanced Directive on File Yes Family History Family History: Patient reports no known family medical history. Review of Systems Constitutional: Denies: see HPI, chills, sweats, fever, malaise, weakness, other Eye: Denies: see HPI, eye pain, blurred vision, tearing, double vision, nose pain, nose congestion, acuity changes, discharge, other ENT: Denies: see HPI, ear pain, ear discharge, nose pain, nose congestion, throat pain, throat swelling, mouth pain, hearing loss, nasal discharge, other Respiratory: Reports: cough, shortness of breath, wheezing, sputum; Denies: see HPI, orthopnea, stridor, COREY, other Cardiovascular: Denies: see HPI, chest pain, edema, palpitations, syncope, PND , other Gastrointestinal: Denies: see HPI, abdominal pain, constipation, diarrhea, nausea, vomiting, melena, hematemesis, other Genitourinary: Denies: see HPI, discharge, dysuria, frequency, hematuria, pain , retention, incontinence, urgency, vag bleed/dc, other Musculoskeletal: Denies: see HPI, back pain, gout, joint pain, joint swelling, muscle pain, muscle stiffness, other Skin: Denies: see HPI, rash, change in color, change in hair/nails, dryness, lesions, other Psychiatric: Denies: see HPI, prior hx, anxiety, depressed feelings, emotional problems, SI, HI, hallucinations, other Neurological: Denies: see HPI, headache, numbness, paresthesia, seizure, tingling, tremors, focal weakness, syncope, dizziness, other Endocrine: Denies: see HPI, excessive sweating, flushing, intolerance to temperature, increased thirst, increased urine, unexplained weight loss, other Hematologic/Lymphatic: Denies: see HPI, anemia, blood clots, easy bleeding, easy bruising, swollen glands, diathesis, other Physical Exam General Appearance: WD/WN, no apparent distress, alert, lethargic, mild distress Lines, tubes and drains: peripheral HEENT: normocephalic, atraumatic, anicteric Neck: non-tender, normal alignment, supple Respiratory/Chest: chest wall non-tender, lungs clear, normal breath sounds, other - tachypneic Cardiovascular/Chest: normal peripheral pulses, normal rate, regular rhythm, no JVD Abdomen: normal bowel sounds, non tender, soft, no organomegaly, no mass Extremities: normal range of motion, non-tender, normal inspection Skin Exam: normal pigmentation, warm/dry Neurologic: oracle obiee developer II-XII grossly normal, no motor/sensory deficits, alert, oriented x 3, responsive Lymphatic: anterior cervical - no lymphadenopathy Musculoskeletal: normal muscle bulk, no effusion Last 24 Hour Vital Signs Date Time Temp Pulse Resp B/P (MAP) Pulse Ox O2 Delivery O2 Flow Rate FiO2 04/12/19 18:30 98.3 79 20 102/58 94 Room Air 04/12/19 16:58 79 20 Room Air 04/12/19 15:17 98.3 79 20 102/58 94 04/12/19 15:02 98.2 79 20 102/58 (73) 92 Room Air Laboratory Tests Test 04/12/19 15:30 04/12/19 15:47 White Blood Count 18.4 K/UL (4.8-10.8) H Red Blood Count 3.60 M/UL (4.20-5.40) L Hemoglobin 10.7 G/DL (12.0-16.0) L Hematocrit 32.8 % (37.0-47.0) L Mean Corpuscular Volume 91 FL (80-99) Mean Corpuscular Hemoglobin 29.7 PG (27.0-31.0) Mean Corpuscular Hemoglobin Concent 32.6 G/DL (32.0-36.0) Red Cell Distribution Width 12.7 % (11.6-14.8) Platelet Count 441 K/UL (150-450) Mean Platelet Volume 6.4 FL (6.5-10.1) L Neutrophils (%) (Auto) % (45.0-75.0) Lymphocytes (%) (Auto) % (20.0-45.0) Monocytes (%) (Auto) % (1.0-10.0) Eosinophils (%) (Auto) % (0.0-3.0) Basophils (%) (Auto) % (0.0-2.0) Differential Total Cells Counted 100 Neutrophils % (Manual) 90 % (45-75) H Lymphocytes % (Manual) 9 % (20-45) L Monocytes % (Manual) 1 % (1-10) Eosinophils % (Manual) 0 % (0-3) Basophils % (Manual) 0 % (0-2) Band Neutrophils 0 % (0-8) Platelet Estimate Increased H Platelet Morphology Normal Red Blood Cell Morphology Normal Prothrombin Time 11.0 SEC (9.30-11.50) Prothromb Time International Ratio 1.0 (0.9-1.1) Activated Partial Thromboplast Time 36 SEC (23-33) H Sodium Level 144 MMOL/L (136-145) Potassium Level 3.6 MMOL/L (3.5-5.1) Chloride Level 106 MMOL/L (98-107) Carbon Dioxide Level 28 MMOL/L (21-32) Anion Gap 10 mmol/L (5-15) Blood Urea Nitrogen 21 mg/dL (7-18) H Creatinine 0.7 MG/DL (0.55-1.30) Estimat Glomerular Filtration Rate mL/min (>60) Glucose Level 97 MG/DL (74-106) Lactic Acid Level 1.50 mmol/L (0.4-2.0) Calcium Level 8.9 MG/DL (8.5-10.1) Phosphorus Level 2.8 MG/DL (2.5-4.9) Magnesium Level 2.2 MG/DL (1.8-2.4) Total Bilirubin 0.3 MG/DL (0.2-1.0) Aspartate Amino Transf (AST/SGOT) 17 U/L (15-37) Alanine Aminotransferase (ALT/SGPT) 13 U/L (12-78) Alkaline Phosphatase 139 U/L (46-116) H Total Creatine Kinase 71 U/L (26-308) Creatine Kinase MB 0.6 NG/ML (0.0-3.6) Creatine Kinase MB Relative Index 0.8 Troponin I 0.000 ng/mL (0.000-0.056) Pro-B-Type Natriuretic Peptide 1493 pg/mL (0-125) H Total Protein 6.0 G/DL (6.4-8.2) L Albumin 1.9 G/DL (3.4-5.0) L Globulin 4.1 g/dL Albumin/Globulin Ratio 0.5 (1.0-2.7) L Lipase 59 U/L (73-393) L Urine Color Yellow Urine Appearance Slightly cloudy Urine pH 5 (4.5-8.0) Urine Specific [place] 1.020 (1.005-1.035) Urine Protein 2+ (NEGATIVE) H Urine Glucose (UA) Negative (NEGATIVE) Urine Ketones 1+ (NEGATIVE) H Urine Blood Negative (NEGATIVE) Urine Nitrite Negative (NEGATIVE) Urine Bilirubin Negative (NEGATIVE) Urine Urobilinogen 1 MG/DL (0.0-1.0) H Urine Leukocyte Esterase 1+ (NEGATIVE) H Urine RBC 0-2 /HPF (0 - 2) Urine WBC 5-10 /HPF (0 - 2) H Urine Squamous Epithelial Cells Moderate /LPF (NONE/OCC) H Urine Bacteria Moderate /HPF (NONE) H Urine Mucus Moderate /LPF (NONE/OCC) H Microbiology Date/Time Source Procedure Growth Status 04/12/19 16:34 Rectum Received Height (Feet): 5 Height (Inches): 5.00 Weight (Pounds): 110 Medications Current Medications Medications (Trade) Dose Ordered Sig/Mary Route PRN Reason Start Time Stop Time Status Last Admin Dose Admin Albuterol/ Ipratropium (Albuterol/ Ipratropium) 3 ml Q6H PRN HHN Shortness of Breath 04/12/19 17:45 04/17/19 17:44 Heparin Sodium (Porcine) (Heparin 5000 units/ml) 5,000 units EVERY 8 HOURS SUBQ 04/12/19 22:00 05/12/19 21:59 Piperacillin Sod/ Tazobactam Sod 3.375 gm/Sodium Chloride 110 ml @ 27.5 mls/hr EVERY 8 HOURS IVPB 04/12/19 22:00 04/17/19 21:59 Vancomycin HCl (Vanco rx to dose) 1 ea DAILY PRN MISC Per rx protocol 04/12/19 17:45 05/12/19 17:44 Vancomycin HCl 500 mg/Dextrose 110 ml @ 110 mls/hr Q24H IVPB 04/13/19 18:00 04/18/19 17:59 Assessment/Plan Problem List: (1) Pneumonia ICD Codes: J18.9 - Pneumonia, unspecified organism SNOMED: 388518339 Qualifiers: Qualified Codes: J18.9 - Pneumonia, unspecified organism (2) Sepsis ICD Codes: A41.9 - Sepsis, unspecified organism SNOMED: 16228456 Qualifiers: Qualified Codes: A41.9 - Sepsis, unspecified organism (3) Dehydration ICD Codes: E86.0 - Dehydration SNOMED: 91512090 (4) UTI (urinary tract infection) ICD Codes: N39.0 - Urinary tract infection, site not specified SNOMED: 70744316 Qualifiers: Qualified Codes: N30.00 - Acute cystitis without hematuria (5) Fever ICD Codes: R50.9 - Fever, unspecified SNOMED: 307886588 (6) Acute encephalopathy ICD Codes: G93.40 - Encephalopathy, unspecified SNOMED: 0415880 (7) GERD (gastroesophageal reflux disease) ICD Codes: K21.9 - Gastro-esophageal reflux disease without esophagitis SNOMED: 387604349 Assessment/Plan: 83 year old female with PMhx dementia/parkinson's presenting with pneumonia and UTI. #Sepsis (fever, WBC) 2/2 Bilateral pneumonia, suspect HAP, vs. CAP #bilateral pneumonia #metabolic encephalopathy 2/2 pneumonia- improving > s/p 30cc/kg in ER. total of 1L - admit to telemetry - DNR/DNI - blood cultures - sputum culture - urine legionella - check influenza. Tamiflu 75mg PO BID. If negative will D/C - Vancomycin per pharmacy (04/12 - ) - Zosyn 3.375gm IV Q8hr (04/12 - ) - Azithromycin 500mg IV daily (04/12 - ) - cautious use of isotonic fluids - plan for 5 days - aspiration precautions - NPO except meds - ST eval - Hospice eval as per below #goals of care - discussed with daughter Tiffanie (medical decision maker) at length regarding goals of care. Tiffanie is considering Hospice. Will discuss this with the rest of her family. - continue DNR/DNI - social work consult for hospice - will change POLST to hospice if this is final decision #UTI, - follow urine culture - abx as above - desecalate pending cultures - plan for 3-5 days pending improveemnt #parkinson's disease #dementia - continue home sinemet - continue donepezil 10mg Po daily FENPPX DVTPPX: heparin SBQ GI PPX: none needed Fluids: 1/2 NS @ 50 cc/hr Diet: NPO except meds Lines: peripheral PT/OT: pending Code status: DNR/DNI Dispo: Back to SNF or SNF with hospice Reason for Continued Hospitalization: Sepsis 75 minutes spent on this encounter. Discussed with RN, patient and ED staff. > 50% spent on counseling and care coordination. An additional 33 mintues spent discussing goals of care including hospice as detailed above. Time of note may not reflect time patient was seen. Bryan Gray D.O. Apr 12, 2019 20:09
[2019-04-12] MEDS: Oseltamivir 75mg cap ORAL SCH (20:15)
[2019-04-12] MEDS ORDERED: Azithromycin 500 MG in D5W 275 ML IV SCH (21:00)
[2019-04-12] MEDS ORDERED: 1/2NS w/KCl 20mEq 1000ml 1,000 ML IV SCH (21:00)
[2019-04-12] MEDS: Heparin 5000 units/ml inj SUBQ SCH (22:00)
[2019-04-12] MEDS: Piperacillin/Tazobactam 3.375 GM in NS 110 ML IVPB SCH (23:35)
[2019-04-13] VITALS: BP 132/61
[2019-04-13 04:00] VITALS: BP 149/75
[2019-04-13] MEDS: Heparin 5000 units/ml inj SUBQ SCH ×4 (05:17→22:05)
[2019-04-13] MEDS: Piperacillin/Tazobactam 3.375 GM in NS 110 ML IVPB SCH ×4 (06:00→22:04)
[2019-04-13 08:00] VITALS: BP 151/71
--- NOTE | 2019-04-13 08:05 | NUR ---
NURSE NOTES: Received report from Loan MAHMOOD. Pt awake and orientedx1. No c/o pain or distress noted. IV site in RFA 22G SL intact and patent running with 1/2NS 2/KCL 20mEq @50ml/hr. Bed in lowest position and locked. Side rails x3 up for safety. Call light within easy reach. Will continue to plan of care.
--- NOTE | 2019-04-13 08:08 | NUR ---
HAND-OFF: Report given to TIMOTEO Troy .
--- NOTE | 2019-04-13 08:28 | General Progress Note ---
Assessment/Plan Problem List: (1) Weakness ICD Codes: R53.1 - Weakness SNOMED: 26863795 (2) Dementia ICD Codes: F03.90 - Unspecified dementia without behavioral disturbance SNOMED: 92500731 (3) Parkinsons disease ICD Codes: G20 - Parkinson's disease SNOMED: 58733070 (4) Severe protein-calorie malnutrition ICD Codes: E43 - Unspecified severe protein-calorie malnutrition SNOMED: 460141427 (5) Pneumonia ICD Codes: J18.9 - Pneumonia, unspecified organism SNOMED: 494097366 Qualifiers: Qualified Codes: J18.9 - Pneumonia, unspecified organism (6) Sepsis ICD Codes: A41.9 - Sepsis, unspecified organism SNOMED: 86129390 Qualifiers: Qualified Codes: A41.9 - Sepsis, unspecified organism (7) Acute encephalopathy ICD Codes: G93.40 - Encephalopathy, unspecified SNOMED: 9657015 (8) UTI (urinary tract infection) ICD Codes: N39.0 - Urinary tract infection, site not specified SNOMED: 36551583 Qualifiers: Qualified Codes: N30.00 - Acute cystitis without hematuria Status: progressing Assessment/Plan: 83 year old female with PMhx dementia/parkinson's presenting with pneumonia and UTI. #Sepsis (fever, WBC) 2/2 Bilateral pneumonia, suspect HAP, vs. CAP #bilateral pneumonia #metabolic encephalopathy 2/2 pneumonia- improving > s/p 30cc/kg in ER. total of 1L - admit to telemetry - DNR/DNI - blood cultures, POSTIVE. - sputum culture - urine legionella - check influenza. Tamiflu 75mg PO BID. If negative will D/C - Vancomycin per pharmacy (04/12 - ) - Zosyn 3.375gm IV Q8hr (04/12 - ) - Azithromycin 500mg IV daily (04/12 - ) - cautious use of isotonic fluids - plan for 5 days - aspiration precautions - NPO except meds - ST eval - Hospice eval as per below -ID consult with Dr. Griffin #goals of care - previously discussed with daughter Tiffanie (medical decision maker) at length regarding goals of care. Tiffanie is considering Hospice. Will discuss this with the rest of her family. - continue DNR/DNI - social work consult for hospice - will change POLST to hospice if this is final decision #UTI, - follow urine culture - abx as above - desecalate pending cultures - plan for 3-5 days pending improveemnt #parkinson's disease #dementia - continue home sinemet - continue donepezil 10mg Po daily FENPPX DVTPPX: heparin SBQ GI PPX: none needed Fluids: 1/2 NS @ 50 cc/hr Diet: NPO except meds Lines: peripheral PT/OT: pending Code status: DNR/DNI Can transfer to med surg Dispo: Back to SNF or SNF with hospice Reason for Continued Hospitalization: Sepsis I spent 40 minutes on this encounter. >50% spent on counselling and care coordination. Subjective Date patient seen: Apr 13, 2019 Constitutional: Denies: no symptoms, chills, diaphoresis, fever, malaise, weakness, other HEENT: Denies: no symptoms, eye pain, blurred vision, tearing, double vision, ear pain, ear discharge, nose pain, nose congestion, throat pain, throat swelling, mouth pain, mouth swelling, other Cardiovascular: Denies: no symptoms, chest pain, edema, irregular heart rate, lightheadedness, palpitations, syncope, other Respiratory: Denies: no symptoms, cough, orthopnea, shortness of breath, SOB with excertion, SOB at rest, sputum, stridor, wheezing, other Gastrointestinal/Abdominal: Denies: no symptoms, abdomen distended, abdominal pain, black stools, tarry stools, blood in stool, constipated, diarrhea, difficulty swallowing, nausea, poor appetite, poor fluid intake, rectal bleeding , vomiting, other Genitourinary: Denies: no symptoms, burning, discharge, frequency, flank pain, hematuria, incontinence, pain, urgency, other Neurologic/Psychiatric: Denies: no symptoms, anxiety, depressed, emotional problems, headache, numbness, paresthesia, pre-existing deficit, seizure, tingling, tremors, weakness, other Endocrine: Denies: no symptoms, excessive sweating, flushing, intolerance to cold, intolerance to heat, increased hunger, increased thirst, increased urine, unexplained weight gain, unexplained weight loss, other Hematologic/Lymphatic: Denies: no symptoms, anemia, easy bleeding, easy bruising, other Allergies: Coded Allergies: DICLOFENAC (Verified Allergy, Unknown, 07/11/17) SULFA (SULFONAMIDE ANTIBIOTICS) (Verified Allergy, Unknown, 07/11/17) SULFAMETHOXAZOLE (Verified Allergy, Unknown, 07/11/17) TRIMETHOPRIM (Verified Allergy, Unknown, 07/11/17) Subjective seen and examined at bedside. Has no complaints. No acute events overnight Objective Last 24 Hour Vital Signs Date Time Temp Pulse Resp B/P (MAP) Pulse Ox O2 Delivery O2 Flow Rate FiO2 04/13/19 08:02 82 16 97 Room Air 21 04/13/19 04:00 96.7 89 16 149/75 (99) 94 04/13/19 04:00 87 04/13/19 00:00 89 04/13/19 00:00 99.2 92 16 132/61 (84) 95 04/12/19 21:00 Room Air 04/12/19 20:00 83 04/12/19 20:00 99.2 85 16 140/67 (91) 93 04/12/19 19:20 Room Air 04/12/19 18:42 86 04/12/19 18:30 98.3 79 20 102/58 94 Room Air 04/12/19 16:58 79 20 Room Air 04/12/19 15:17 98.3 79 20 102/58 94 04/12/19 15:02 98.2 79 20 102/58 (73) 92 Room Air Intake and Output 04/12/19 04/13/19 19:00 07:00 Intake Total 2385 ml 387.5 ml Balance 2385 ml 387.5 ml Intake IV Total 2385 ml 387.5 ml Laboratory Tests 04/12/19 15:30: White Blood Count 18.4H, Red Blood Count 3.60L, Hemoglobin 10.7L, Hematocrit 32.8L, Mean Corpuscular Volume 91, Mean Corpuscular Hemoglobin 29.7, Mean Corpuscular Hemoglobin Concent 32.6, Red Cell Distribution Width 12.7, Platelet Count 441, Mean Platelet Volume 6.4L, Neutrophils (%) (Auto) , Lymphocytes (%) ( Auto) , Monocytes (%) (Auto) , Eosinophils (%) (Auto) , Basophils (%) (Auto) , Differential Total Cells Counted 100, Neutrophils % (Manual) 90H, Lymphocytes % (Manual) 9L, Monocytes % (Manual) 1, Eosinophils % (Manual) 0, Basophils % ( Manual) 0, Band Neutrophils 0, Platelet Estimate IncreasedH, Platelet Morphology Normal, Red Blood Cell Morphology Normal, Prothrombin Time 11.0, Prothromb Time International Ratio 1.0, Activated Partial Thromboplast Time 36H , Sodium Level 144, Potassium Level 3.6, Chloride Level 106, Carbon Dioxide Level 28, Anion Gap 10, Blood Urea Nitrogen 21H, Creatinine 0.7, Estimat Glomerular Filtration Rate , Glucose Level 97, Lactic Acid Level 1.50, Calcium Level 8.9, Phosphorus Level 2.8, Magnesium Level 2.2, Total Bilirubin 0.3, Aspartate Amino Transf (AST/SGOT) 17, Alanine Aminotransferase (ALT/SGPT) 13, Alkaline Phosphatase 139H, Total Creatine Kinase 71, Creatine Kinase MB 0.6, Creatine Kinase MB Relative Index 0.8, Troponin I 0.000, Pro-B-Type Natriuretic Peptide 1493H, Total Protein 6.0L, Albumin 1.9L, Globulin 4.1, Albumin/Globulin Ratio 0.5L, Lipase 59L 04/12/19 15:47: Urine Color Yellow, Urine Appearance Slightly cloudy, Urine pH 5, Urine Specific [place] 1.020, Urine Protein 2+H, Urine Glucose (UA) Negative, Urine Ketones 1+H, Urine Blood Negative, Urine Nitrite Negative, Urine Bilirubin Negative, Urine Urobilinogen 1H, Urine Leukocyte Esterase 1+H, Urine RBC 0-2, Urine WBC 5-10H, Urine Squamous Epithelial Cells ModerateH, Urine Bacteria ModerateH, Urine Mucus ModerateH Height (Feet): 5 Height (Inches): 5.00 Weight (Pounds): 110 Objective General Appearance: WD/WN, no apparent distress, alert, lethargic, mild distress Lines, tubes and drains: peripheral HEENT: normocephalic, atraumatic, anicteric Neck: non-tender, normal alignment, supple Respiratory/Chest: chest wall non-tender, lungs clear, normal breath sounds, other - tachypneic Cardiovascular/Chest: normal peripheral pulses, normal rate, regular rhythm, no JVD Abdomen: normal bowel sounds, non tender, soft, no organomegaly, no mass Extremities: normal range of motion, non-tender, normal inspection Skin Exam: normal pigmentation, warm/dry 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 Apr 13, 2019 08:28
[2019-04-13] MEDS ORDERED: Ascorbic Acid 500mg tab ORAL SCH (09:00)
[2019-04-13] MEDS ORDERED: Donepezil 10mg tab ORAL SCH (09:00)
[2019-04-13] MEDS ORDERED: Aspirin EC 81mg tab ORAL SCH (09:00)
[2019-04-13] MEDS: Oseltamivir 75mg cap ORAL SCH (09:18)
[2019-04-13] MEDS: Levodopa/Carbidopa 25/100 tab ORAL SCH ×3 (09:18→17:38)
[2019-04-13 09:21] LABS: HEMATOCRIT 33.4 % (37.0-47.0); HEMOGLOBIN 10.7 G/DL (12.0-16.0); MEAN CORPUSCULAR VOLUME 91 FL (80-99); PLATELET COUNT 467 K/UL (150-450); RED BLOOD COUNT 3.66 M/UL (4.20-5.40); RED CELL DISTRIBUTION WIDTH 13.5 % (11.6-14.8); WHITE BLOOD COUNT 14.2 K/UL (4.8-10.8)
[2019-04-13 09:57] LABS: ANION GAP 11 mmol/L (5-15); BLOOD UREA NITROGEN 15 mg/dL (7-18); CALCIUM 8.3 MG/DL (8.5-10.1); CARBON DIOXIDE 25 MMOL/L (21-32); CHLORIDE 106 MMOL/L (98-107); CREATININE 0.7 MG/DL (0.55-1.30); PHOSPHORUS 2.3 MG/DL (2.5-4.9); POTASSIUM 3.6 MMOL/L (3.5-5.1); SODIUM 142 MMOL/L (136-145)
--- NOTE | 2019-04-13 11:17 | NUR ---
RD ASSESSMENT & RECOMMENDATIONS SEE CARE ACTIVITY FOR COMPLETE ASSESSMENT DAILY ESTIMATED NEEDS: Needs based on Underweight/ 44kg 30-35 kcals/kg 0140-9503 total kcals 1-1.5 g protein/kg 44-66g g total protein 25-30 mL/kg 7146-5514 total fluid mLs NUTRITION DIAGNOSIS: * Increased kcal/prot needs R/T underweight status as evidenced by pt @ 85% IBW, low BMI per guidelines. 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 CURRENT DIET:REGULAR/ Pureed Moist, [place] Thick Liquids PO DIET RECOMMENDATIONS: Liberalized REGULAR/ texture per BLANKET CUTTER HAND + Ensure Enlive TID ADDITIONAL RECOMMENDATIONS: * Calibrated bedscale wt for accurate CBW -> bedscale (04/13)=97.4lbs vs EMR wt =110lbs * MVI x 1 as supplement * Monitor POC : comfort care, no TF per POLST at this time * Monitor PO intake closely * WC eval - wound photo noted (on the spine area)
[2019-04-13 12:00] VITALS: BP 135/75
--- NOTE | 2019-04-13 13:55 | NUR ---
HAND-OFF: Report given to Rachel RN. Pt remains stable.
[2019-04-13] MEDS ORDERED: Albuterol/Ipratropium 3ml neb HHN PRN (14:00)
--- NOTE | 2019-04-13 14:00 | NUR ---
nurse notes received patient from tele via bed, patient awake, confused no sign of distress, on RA, with on going IVF and IV ATB ,daughter at bedside, oriented to the unit, Plan of care was discussed verbalized understanding, 4p's in progress call light w/n reach amber drake
[2019-04-13] MEDS: 1/2NS w/KCl 20mEq 1000ml 1,000 ML IV SCH ×2 (14:05→21:28)
[2019-04-13 16:00] VITALS: BP 134/67
[2019-04-13] MEDS ORDERED: Tubing IV Secondary IV ONE (16:27)
[2019-04-13] MEDS: Vancomycin 500 MG in D5W 110 ML IVPB SCH (17:44)
[2019-04-13] MEDS ORDERED: Vancomycin 500mg/D5W 110ml IVPB SCH ×2 (18:00)
--- NOTE | 2019-04-13 19:13 | NUR ---
HAND-OFF: Report given to Minsu, RN resting comfortably in bed no sign of distress amber Mejia.
--- NOTE | 2019-04-13 19:26 | NUR ---
NURSE NOTES: Received report from TIMOTEO Ramos. Patient asleep. Patient breathing unlabored without distress, discomfort, or sob on room air. 2 IV sites noted on the right arm intact and patent. Patient's daugther (POA) at the bedside, acknowledged and introduced self. Bed placed at the lowest with alarm, brake, and siderails up for safety. Call light placed within reach. Will continue to monitor and provide care as ordered.
[2019-04-13 20:00] VITALS: BP 128/65
[2019-04-13] MEDS: Azithromycin 500 MG in D5W 275 ML IV SCH (20:34)
[2019-04-13] MEDS ORDERED: NS 275ml ONE (20:39)
[2019-04-14] VITALS: BP 133/68
[2019-04-14 04:00] VITALS: BP 144/70
[2019-04-14] MEDS: Piperacillin/Tazobactam 3.375 GM in NS 110 ML IVPB SCH ×3 (05:26→21:50)
[2019-04-14] MEDS: Heparin 5000 units/ml inj SUBQ SCH ×3 (05:53→21:51)
--- NOTE | 2019-04-14 07:41 | NUR ---
NURSE NOTES: pt awake, A/O x 1-2, forgeftul. denies pain, no SOB noted.no cough, pts on Abx, and IVF. tolerating diet . no N/V. opti foam on back for protection. turned and reposition q2hrs. bed alarm on, bed in low position , call light within reach. fall and asp precaution maintained. will continue to monitor.
--- NOTE | 2019-04-14 07:45 | NUR ---
HAND-OFF: Report given to TIMOTEO Knox.
[2019-04-14 08:00] VITALS: BP 140/74
[2019-04-14] MEDS: Ascorbic Acid 500mg tab ORAL SCH (08:23)
[2019-04-14] MEDS: Levodopa/Carbidopa 25/100 tab ORAL SCH ×3 (08:23→17:38)
[2019-04-14] MEDS: Aspirin EC 81mg tab ORAL SCH (08:24)
[2019-04-14] MEDS: Donepezil 10mg tab ORAL SCH (08:24)
--- NOTE | 2019-04-14 10:42 | General Progress Note ---
Assessment/Plan Problem List: (1) Weakness ICD Codes: R53.1 - Weakness SNOMED: 86969403 (2) Dementia ICD Codes: F03.90 - Unspecified dementia without behavioral disturbance SNOMED: 82524101 (3) Parkinsons disease ICD Codes: G20 - Parkinson's disease SNOMED: 43045477 (4) Severe protein-calorie malnutrition ICD Codes: E43 - Unspecified severe protein-calorie malnutrition SNOMED: 920539492 (5) Pneumonia ICD Codes: J18.9 - Pneumonia, unspecified organism SNOMED: 932259515 Qualifiers: Qualified Codes: J18.9 - Pneumonia, unspecified organism (6) Sepsis ICD Codes: A41.9 - Sepsis, unspecified organism SNOMED: 03880062 Qualifiers: Qualified Codes: A41.9 - Sepsis, unspecified organism (7) Acute encephalopathy ICD Codes: G93.40 - Encephalopathy, unspecified SNOMED: 0586252 (8) UTI (urinary tract infection) ICD Codes: N39.0 - Urinary tract infection, site not specified SNOMED: 64548748 Qualifiers: Qualified Codes: N30.00 - Acute cystitis without hematuria Status: progressing Assessment/Plan: 83 year old female with PMhx dementia/parkinson's presenting with pneumonia and UTI. #Sepsis (fever, WBC) 2/2 Bilateral pneumonia, suspect HAP, vs. CAP #bilateral pneumonia #metabolic encephalopathy 2/2 pneumonia- improving > s/p 30cc/kg in ER. total of 1L - admit to telemetry - DNR/DNI - blood cultures, POSTIVE. - sputum culture - urine legionella - check influenza. Tamiflu 75mg PO BID. If negative will D/C - Vancomycin per pharmacy (04/12 - ) - Zosyn 3.375gm IV Q8hr (04/12 - ) - Azithromycin 500mg IV daily (04/12 - ) - cautious use of isotonic fluids - plan for 5 days - aspiration precautions - NPO except meds - ST eval - Hospice eval as per below -ID consult with Dr. Griffin -Sputum cx, gm negative bacillus -blood culture staph coag negative #goals of care - previously discussed with daughter Tiffanie (medical decision maker) at length regarding goals of care. Tiffanie is considering Hospice. Will discuss this with the rest of her family. - continue DNR/DNI - social work consult for hospice - will change POLST to hospice if this is final decision #UTI, - follow urine culture - abx as above - desecalate pending cultures - plan for 3-5 days pending improveemnt #parkinson's disease #dementia - continue home sinemet - continue donepezil 10mg Po daily FENPPX DVTPPX: heparin SBQ GI PPX: none needed Fluids: 1/2 NS @ 50 cc/hr Diet: NPO except meds Lines: peripheral PT/OT: pending Code status: DNR/DNI Can transfer to med surg Dispo: Back to SNF or SNF with hospice Reason for Continued Hospitalization: Sepsis I spent 40 minutes on this encounter. >50% spent on counselling and care coordination. I spent an additional 33 minutes discussing goals of care with daughter. Subjective Date patient seen: Apr 14, 2019 ROS Limited/Unobtainable: Yes Allergies: Coded Allergies: DICLOFENAC (Verified Allergy, Unknown, 07/11/17) SULFA (SULFONAMIDE ANTIBIOTICS) (Verified Allergy, Unknown, 07/11/17) SULFAMETHOXAZOLE (Verified Allergy, Unknown, 07/11/17) TRIMETHOPRIM (Verified Allergy, Unknown, 07/11/17) Subjective seen and examined at bedside. poor historian Has no complaints. No acute events overnight Daughter at bedside. very informative. Appreciative of care. Discussed mom's care and goals of care at length Objective Last 24 Hour Vital Signs Date Time Temp Pulse Resp B/P (MAP) Pulse Ox O2 Delivery O2 Flow Rate FiO2 04/14/19 09:00 Room Air Room Air 04/14/19 08:00 97.7 79 19 140/74 (96) 93 04/14/19 04:00 98.4 86 20 144/70 (94) 97 04/14/19 00:00 98.0 98 19 133/68 (89) 95 04/13/19 21:00 Room Air 04/13/19 20:10 84 18 96 Room Air 21 04/13/19 20:00 98.2 85 20 128/65 (86) 95 04/13/19 16:00 99.3 85 19 134/67 (89) 94 04/13/19 14:01 Room Air 04/13/19 12:00 83 04/13/19 12:00 98.4 85 18 135/75 (95) 94 Intake and Output 04/13/19 04/14/19 19:00 07:00 Intake Total 922.5 ml 735.0 ml Balance 922.5 ml 735.0 ml Intake Oral 120 ml IV Total 802.5 ml 735.0 ml # Voids 3 # Bowel Movements 3 Height (Feet): 5 Height (Inches): 5.00 Weight (Pounds): 110 Objective General Appearance: WD/WN, no apparent distress, alert, lethargic, mild distress Lines, tubes and drains: peripheral HEENT: normocephalic, atraumatic, anicteric Neck: non-tender, normal alignment, supple Respiratory/Chest: chest wall non-tender, lungs clear, normal breath sounds, other - tachypneic Cardiovascular/Chest: normal peripheral pulses, normal rate, regular rhythm, no JVD Abdomen: normal bowel sounds, non tender, soft, no organomegaly, no mass Extremities: normal range of motion, non-tender, normal inspection Skin Exam: normal pigmentation, warm/dry 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 Apr 14, 2019 10:42
[2019-04-14 12:00] VITALS: BP 134/73
[2019-04-14 16:00] VITALS: BP 135/72
[2019-04-14] MEDS ORDERED: Tubing IV Secondary IV ONE (16:12)
[2019-04-14] MEDS: Vancomycin 500 MG in D5W 110 ML IVPB SCH (17:38)
[2019-04-14] MEDS: 1/2NS w/KCl 20mEq 1000ml 1,000 ML IV SCH (17:50)
--- NOTE | 2019-04-14 19:21 | NUR ---
HAND-OFF: Report given to LAINA MAHMOOD.
--- NOTE | 2019-04-14 19:23 | NUR ---
NURSE NOTES: Received report from TIMOTEO Knox. Patient asleep. Patient breathing unlabored without distress, discomfort, or sob on room air. 2 IV sites noted on the right arm intact and patent. Bed placed at the lowest with alarm, brake, and siderails up for safety. Call light placed within reach. Will continue to monitor and provide care as ordered.
[2019-04-14 20:00] VITALS: BP 121/71
[2019-04-14] MEDS: Azithromycin 500 MG in D5W 275 ML IV SCH (20:37)
[2019-04-15] VITALS: BP 128/70
[2019-04-15] MEDS: Piperacillin/Tazobactam 3.375 GM in NS 110 ML IVPB SCH ×2 (05:46→14:36)
[2019-04-15] MEDS: Heparin 5000 units/ml inj SUBQ SCH ×3 (05:50→22:00)
--- NOTE | 2019-04-15 07:30 | NUR ---
NURSE NOTES: pt resting in bed. denies pain, no SOB noted, HOB >30. pts on IVF and Abx, tolerating puree diet well, no cough. call light within reach. bed alarm on. fall precaution maintained. will continue to monitor.
[2019-04-15 07:35] LABS: HEMATOCRIT 34.2 % (37.0-47.0); MEAN CORPUSCULAR VOLUME 91 FL (80-99); PLATELET COUNT 520 K/UL (150-450); RED BLOOD COUNT 3.76 M/UL (4.20-5.40); WHITE BLOOD COUNT 12.9 K/UL (4.8-10.8)
--- NOTE | 2019-04-15 07:45 | NUR ---
HAND-OFF: Report given to TIMOTEO Knox.
[2019-04-15 07:49] LABS: ANION GAP 8 mmol/L (5-15); BLOOD UREA NITROGEN 10 mg/dL (7-18); CALCIUM 8.1 MG/DL (8.5-10.1); CARBON DIOXIDE 25 MMOL/L (21-32); CHLORIDE 105 MMOL/L (98-107); CREATININE 0.7 MG/DL (0.55-1.30); POTASSIUM 4.2 MMOL/L (3.5-5.1); SODIUM 138 MMOL/L (136-145)
[2019-04-15 08:00] VITALS: BP 141/72
[2019-04-15] MEDS: Levodopa/Carbidopa 25/100 tab ORAL SCH ×3 (08:43→18:17)
[2019-04-15] MEDS: Donepezil 10mg tab ORAL SCH (08:43)
[2019-04-15] MEDS: Ascorbic Acid 500mg tab ORAL SCH (08:43)
[2019-04-15] MEDS: Aspirin EC 81mg tab ORAL SCH (08:43)
[2019-04-15 12:00] VITALS: BP 129/66
--- NOTE | 2019-04-15 13:47 | NUR ---
ST NOTES: REFERRED FOR SWALLOW EVAL BY DR BLACKMAN, SEE FULL REPORT TO FOLLOW. DYSPHAGIA RISK FACTORS FOR THIS 83 Y.O.F.: ACUTE ISSUES: BILATERAL PNA AND SEPSIS, ACUTE ENCEPHALOPATHY, DEHYDRATION H/O OROPHARYNGEAL DYSPHAGIA, PNA MULTIPLE IN THE LAST 1-2 YEARS, SEVERE-MALNUTRITION, ADULT FTT, PD, DEMENTIA, DEPRESSION. POLST STATES NO TUBE FEEDINGS PER DPOA HER DTR. AT ASSISTED LIVING PT WAS ON MECH SOFT CHOPPED DIET AND THIN LIQUIDS (UPGRADED BY [employer] SAL[employer] SYSTEMS ENGINEER) PRIOR TO ADMIT. AT SNF ON NECTAR THICK LIQUIDS AND MECH SOFT FINELY CHOPPED. AT [facility] 12/10/18 SWALLOW EVAL ON MECH SOFT FINELY CHOPPED AND NECTAR THICK LIQUIDS WITH 25-50% INTAKE. A MOD BARIUM SWALLOW STUDY RECOMMENDED BUT NOT COMPLETED DUE TO SCHEDULE CONFLICTS (RECOMMENDED OP IF DC). AT [facility] JUL 13, 2017 SHE HAD A MOD BARIUM SWALLOW STUDY AND DX WITH MODERATE TO MOD-SEVERE OROPHARYNGEAL DYSPHAGIA WITH NO ASPIRATION BUT HAD HIGH RISK DUE TO SENSORIMOTOR DEFICITS. PLACED ON A PUREED AND NECTAR THICK LIQUID DIET WITH STRICT ASPIRATION PRECAUTIONS AT THAT TIME. THE PATIENT IS ALERT AND DOES NOT INITIATE MUCH VERBALLY. SHE DID SAY THAT SHE DID NOT WANT MORE PO TRIALS. INITIAL IMPRESSIONS: S/S OF A PERSISTENT OROPHARYNGEAL DYSPHAGIA WITH INCREASED (MILD-MOD) OVERALL TRANSIT TIMES. TONGUE ROM IS GOOD BUT SPEED IS SLOW AND HAS REDUCED STRENGTH. LIPS WERE GROSSLY FUNCTIONAL AND SHE HAD ADEQUATE DENTITION. GIVEN NECTAR THICK LIQUIDS VIA TSP AND CUP, SWALLOW WILL TRIGGER IN 2 SECONDS WITH FAIR HYOLARYNGEAL EXCURSION AND SHE WILL SWALLOW AGAIN SPONTANEOUSLY IN 4 SECONDS, NO ORAL RESIDUE NO OVERT ASPIRATION GIVEN PUDDING TSP, TAKES 4 SECONDS PRIOR TO SWALLOW AND SHE WILL SPON SWALLOW 4 SECONDS LATER, NO ORAL RESIDUE NOR OVERT ASPIRATION HAS SILENT ASPIRATION RISK DUE TO PD AND DEMENTIA DIAGNOSES. POOR AND SLOW INTAKE RECOMMENDATIONS: CONTINUE WITH PO INTAKE FOR QUALITY OF LIFE ON CURRENT PUREED AND NECTAR THICK LIQUID DIET. (LIBERALIZE DIET TYPE AND SEND ENSURE ENLIVE TID PER RD) COMPLETE MOD BARIUM SWALLOW STUDY TO FURTHER ASSESS SWALLOW, R/O SILENT ASP AND ATTEMPT TRIAL TX SKILLED DYSPHAGIA MANAGEMENT AND TX AND COG-COM AND VOICE EVAL/TX (LSVT VOICE TX) EDUCATED/TRAINED TIMOTEO VILLELA AND HER DTR IN POSTED ASPIRATION AND REFLUX PRECAUTIONS. D/W DR BLACKMAN WHO AGREED WITH RECOMMENDATIONS.
[2019-04-15] MEDS ORDERED: DUONEB 0.5-3(2.53 ML HHN (14:36)
[2019-04-15] MEDS ORDERED: TAMIFLU75 MG ORAL (14:36)
[2019-04-15] MEDS ORDERED: LEVOFLOXACIN750 MG ORAL (14:36)
[2019-04-15 16:00] VITALS: BP 122/66
--- NOTE | 2019-04-15 18:35 | General Progress Note ---
Assessment/Plan Problem List: (1) Pneumonia ICD Codes: J18.9 - Pneumonia, unspecified organism SNOMED: 759458364 Qualifiers: (2) Sepsis ICD Codes: A41.9 - Sepsis, unspecified organism SNOMED: 42612373 Qualifiers: Qualified Codes: A41.9 - Sepsis, unspecified organism (3) Dehydration ICD Codes: E86.0 - Dehydration SNOMED: 80733017 (4) UTI (urinary tract infection) ICD Codes: N39.0 - Urinary tract infection, site not specified SNOMED: 24200039 Qualifiers: Qualified Codes: N30.00 - Acute cystitis without hematuria (5) Fever ICD Codes: R50.9 - Fever, unspecified SNOMED: 003510895 (6) Acute encephalopathy ICD Codes: G93.40 - Encephalopathy, unspecified SNOMED: 3582454 (7) GERD (gastroesophageal reflux disease) ICD Codes: K21.9 - Gastro-esophageal reflux disease without esophagitis SNOMED: 615856818 Status: progressing Assessment/Plan: 83 year old female with PMhx dementia/parkinson's presenting with pneumonia and UTI. #Sepsis (fever, WBC) 2/2 Pseudomonas pneumonia #bilateral pneumonia #metabolic encephalopathy 2/2 pneumonia- improving > s/p 30cc/kg in ER. total of 1L - admit to telemetry - DNR/DNI - blood cultures - sputum culture - urine legionella - check influenza. Tamiflu 75mg PO BID. If negative will D/C - Vancomycin per pharmacy (04/12 - 04/15/19) - Zosyn 3.375gm IV Q8hr (04/12 - 04/15/19) - Azithromycin 500mg IV daily (04/12 - 04/15/19) -Start levaquin 750mg PO daily (04/16 - ). Plan for a total of 7 days. End date 04/20/19 -continue tamiflu 75mg PO BID for a total of 5 days. Patient may have had flu- pneumonia - cautious use of isotonic fluids - aspiration precautions - ST eval- Barium swallow tomorrow - Hospice eval as per below - follow up urine legionella #staph hominis bacteremia, likely contaminant - monitor surveilance cultures #goals of care - discussed with daughter Jenn (medical decision maker) at length regarding goals of care. 32 minutes spent discussing options of full treatment and hospice. Jenn has discussed with her family and they have decided to pursue hospice. -they would like to continue antibiotics for this hospitalizations but would not like to return to hospital for future illneses - continue DNR/DNI - social work consult for hospice - will change POLST to reflect this #UTI, > Urine culture negative follow urine culture - abx as above #parkinson's disease #dementia - continue home sinemet - continue donepezil 10mg Po daily FENPPX DVTPPX: heparin SBQ GI PPX: none needed Fluids: 1/2 NS @ 50 cc/hr Diet: NPO except meds Lines: peripheral PT/OT: pending Code status: DNR/DNI Dispo: Back to SNF on hospice Reason for Continued Hospitalization: Pseudomonas pneumonia. D/c planning 35 minutes spent on this encounter. Discussed with RN, patient, and daughter ( DPOA). > 50% spent on counseling and care coordination. An additional 32 mintues spent discussing goals of care including hospice as detailed above. Time of note may not reflect time patient was seen. Subjective Date patient seen: Apr 15, 2019 Constitutional: Denies: chills, diaphoresis, fever, malaise, weakness, other HEENT: Denies: eye pain, blurred vision, tearing, double vision, ear pain, ear discharge, nose pain, nose congestion, throat pain, throat swelling, mouth pain , mouth swelling, other Respiratory: Denies: cough, orthopnea, shortness of breath, SOB with excertion , SOB at rest, sputum, stridor, wheezing, other Gastrointestinal/Abdominal: Denies: abdomen distended, abdominal pain, black stools, tarry stools, blood in stool, constipated, diarrhea, difficulty swallowing, nausea, poor appetite, poor fluid intake, rectal bleeding, vomiting , other Genitourinary: Denies: burning, discharge, frequency, flank pain, hematuria, incontinence, pain, urgency, other Neurologic/Psychiatric: Denies: anxiety, depressed, emotional problems, headache, numbness, paresthesia, pre-existing deficit, seizure, tingling, tremors, weakness, other Endocrine: Denies: excessive sweating, flushing, intolerance to cold, intolerance to heat, increased hunger, increased thirst, increased urine, unexplained weight gain, unexplained weight loss, other Hematologic/Lymphatic: Denies: anemia, easy bleeding, easy bruising, other Allergies: Coded Allergies: DICLOFENAC (Verified Allergy, Unknown, 07/11/17) SULFA (SULFONAMIDE ANTIBIOTICS) (Verified Allergy, Unknown, 07/11/17) SULFAMETHOXAZOLE (Verified Allergy, Unknown, 07/11/17) TRIMETHOPRIM (Verified Allergy, Unknown, 07/11/17) Subjective No acute events overnight per nursing. Patient feels better. Still with generalized weakness. Per nursing had an episode of melena. Otherwise hemodynamically stable. Denies fevers chills cough chest pain shortness of breath. Daughter the DPOA would like hopsice Objective Last 24 Hour Vital Signs Date Time Temp Pulse Resp B/P (MAP) Pulse Ox O2 Delivery O2 Flow Rate FiO2 04/15/19 16:00 97.3 75 18 122/66 (84) 95 04/15/19 12:00 98.1 73 18 129/66 (87) 95 04/15/19 09:00 Room Air Room Air 04/15/19 08:34 80 18 95 Room Air 21 04/15/19 08:00 97.6 72 18 141/72 (95) 95 04/15/19 02:07 Room Air Room Air 04/15/19 00:00 97.0 83 20 128/70 (89) 95 04/14/19 21:00 Room Air Room Air 04/14/19 20:24 76 18 96 Room Air 21 04/14/19 20:00 97.8 81 20 121/71 (88) 95 Intake and Output 04/14/19 04/15/19 19:00 07:00 Intake Total 860.0 ml 835.0 ml Balance 860.0 ml 835.0 ml IV Total 860.0 ml 835.0 ml Laboratory Tests 04/15/19 06:18: White Blood Count 12.9H, Red Blood Count 3.76L, Hemoglobin 11.0L, Hematocrit 34.2L, Mean Corpuscular Volume 91, Mean Corpuscular Hemoglobin 29.2, Mean Corpuscular Hemoglobin Concent 32.1, Red Cell Distribution Width 14.0, Platelet Count 520H, Mean Platelet Volume 6.3L, Neutrophils (%) (Auto) , Lymphocytes (%) (Auto) , Monocytes (%) (Auto) , Eosinophils (%) (Auto) , Basophils (%) (Auto) , Differential Total Cells Counted 100, Neutrophils % (Manual) 91H, Lymphocytes % (Manual) 1L, Monocytes % (Manual) 5, Eosinophils % (Manual) 1, Basophils % ( Manual) 1, Metamyelocytes % 1H, Band Neutrophils 0, Platelet Estimate IncreasedH , Platelet Morphology Normal, Red Blood Cell Morphology Normal, Sodium Level 138 , Potassium Level 4.2, Chloride Level 105, Carbon Dioxide Level 25, Anion Gap 8 , Blood Urea Nitrogen 10, Creatinine 0.7, Estimat Glomerular Filtration Rate , Glucose Level 93, Calcium Level 8.1L 04/15/19 17:00: Vancomycin Level Trough 2.4L Height (Feet): 5 Height (Inches): 5.00 Weight (Pounds): 110 General Appearance: WD/WN, no apparent distress, alert EENT: PERRL/EOMI, normal ENT inspection Neck: non-tender, normal alignment, supple Cardiovascular: normal peripheral pulses, normal rate, regular rhythm, no JVD Respiratory/Chest: chest wall non-tender, lungs clear, normal breath sounds Abdomen: normal bowel sounds, non tender, soft, no organomegaly, no mass Extremities: other - No lower extremity edema bilaterally Neurologic: drop wirer II-XII grossly normal, no motor/sensory deficits, abnormal gait , alert, oriented x 3, responsive Skin: normal pigmentation, warm/dry Bryan Gray D.O. Apr 15, 2019 18:35
--- NOTE | 2019-04-15 19:20 | NUR ---
HAND-OFF: Report given to LAINA MAHMOOD.
--- NOTE | 2019-04-15 19:45 | NUR ---
NURSE NOTES: Received report from TIMOTEO Knox. Patient awake and verbally responsive. Patient breathing unlabored without distress, discomfort, or sob on room air. 2 IV sites noted on the right arm intact and patent. Daughter acknowledged at the bedside. Concern with newly prescribed atb levaquin (scheduled for tomorrow 0900) address appropriately to . Will endorse to dayshift for tomorrow. Bed placed at the lowest with alarm, brake, and siderails up for safety. Call light placed within reach. Will continue to monitor and provide care as ordered.
--- NOTE | 2019-04-15 19:47 | NUR ---
NURSE NOTES: Daughter ([place]) had concern about change in antibiotic prescribed. Concern with newly prescribed atb levaquin (scheduled for tomorrow 0900) address appropriately to . Dr. Martinez covering for ordered to call again tomorrow at 0800. Will endorse to dayshift for tomorrow.
[2019-04-15 20:00] VITALS: BP 124/61
[2019-04-15] MEDS ORDERED: Vancomycin 750mg/D5W 275ml IVPB SCH ×2 (20:00)
--- NOTE | 2019-04-15 23:30 | NUR ---
NURSE NOTES: BM x1, cleaned and collected stool and dropped off specimen to lab.
[2019-04-16] VITALS: BP 158/79
--- NOTE | 2019-04-16 00:37 | NUR ---
NURSE NOTES: Rechecked patient's O2Sat on room air. Reading 90%. Active order to titrate O2 via NC to keep pt O2sat above 92%. Applied 2L O2 via NC. Explained reason to patient. Patient verbalized understanding.
[2019-04-16] MEDS: 1/2NS w/KCl 20mEq 1000ml 1,000 ML IV SCH (02:30)
[2019-04-16 04:00] VITALS: BP 149/71
[2019-04-16] MEDS: Heparin 5000 units/ml inj SUBQ SCH ×2 (05:25→14:59)
--- NOTE | 2019-04-16 06:46 | NUR ---
NURSE NOTES: Removed patient's right forearm IV per patient request. Pain felt on the IV site and reddened. IV removed. Will continue to monitor and provide care as ordered.
--- NOTE | 2019-04-16 07:41 | NUR ---
HAND-OFF: Report given to TIMOTEO Nava. Endorsed to call Dr. Gray at 0800 regarding the daughter's concern with Levaquin.
[2019-04-16 08:00] VITALS: BP 110/50
--- NOTE | 2019-04-16 08:00 | NUR ---
NURSE NOTES: Patient is awake and alert,respirations are unlabored.IV fluids infusing as ordered.Patient ate a small amount of her breakfast.Will assist with meals.Bed alarm is on,call light within reach.
[2019-04-16] MEDS: Ascorbic Acid 500mg tab ORAL SCH (09:00)
[2019-04-16] MEDS ORDERED: Levofloxacin 750mg tab ORAL SCH (09:00)
--- NOTE | 2019-04-16 10:10 | NUR ---
PT EVALUATION NOTE Patient seen for initial evaluation, see complete evaluation for details. Patient presents with generalized weakness, decreased safety and impaired balance which affects patient's ability to complete mobility tasks. Patient requires mod/max assist for bed mobility, unable to sit without assistance. Patient declined OOB activities. Patient will benefit from skilled inpatient PT intervention to address strength, balance and safety in order to improve level of functional mobility with improved safety and to decrease fall risk. Recommend discharge to SNF once medically cleared by MD. DME needs to be determined based on patient's progress. Addendum: 04/16/19 at 1339 by JASMIN PARTIDA PT Amended: Links added.
[2019-04-16] MEDS: Donepezil 10mg tab ORAL SCH (10:57)
[2019-04-16] MEDS: Aspirin EC 81mg tab ORAL SCH (10:58)
[2019-04-16] MEDS: Levodopa/Carbidopa 25/100 tab ORAL SCH ×3 (10:58→18:58)
[2019-04-16 12:00] VITALS: BP 129/63
--- NOTE | 2019-04-16 12:02 | NUR ---
RD ASSESSMENT & RECOMMENDATIONS SEE CARE ACTIVITY FOR COMPLETE ASSESSMENT DAILY ESTIMATED NEEDS: Needs based on Underweight/ 44kg 30-35 kcals/kg 8206-1001 total kcals 1-1.5 g protein/kg 44-66g g total protein 25-30 mL/kg 5984-8135 total fluid mLs NUTRITION DIAGNOSIS: * Increased kcal/prot needs R/T underweight status as evidenced by pt @ 85% IBW, low BMI per guidelines. * Swallowing difficulty R/T dysphagia, dementia as evidenced by pt CONSULTING SME recommends pureed moist, NTL at this time. CURRENT DIET:REGULAR/ Pureed Moist, [place] Thick Liquids PO DIET RECOMMENDATIONS: Liberalized REGULAR/ texture per CONSULTING SME + Ensure Enlive TID ADDITIONAL RECOMMENDATIONS: * Calibrated bedscale wt for accurate CBW -> bedscale (04/16)=99lbs vs EMR wt =110lbs * MVI x 1 as supplement * Monitor PO intake closely * WC eval - wound photo noted (on the spine area) . .
--- NOTE | 2019-04-16 12:17 | NUR ---
POTATO PEELER NOTES SPOKE WITH PT'S DAUGHTER IN REGARDS TO HOSPICE. DAUGHTER NICO WANTS PT TO RETURN TO [facility] SHE LOOK FOR HOSPICE PLACEMENT NEAR HER HOME. MADE AWARE. CLINICALS FAXED TO [facility]. SPOKE WITH CHRISTIANO IN ADMISSIONS STATED SHE WILL FIND A BED [facility].
[2019-04-16] MEDS ORDERED: Varibar Nectar 240ml MC PRN (13:15)
[2019-04-16] MEDS ORDERED: Varibar Honey 250ml MC PRN (13:15)
[2019-04-16] MEDS ORDERED: Varibar Pudding 230ml MC PRN (13:15)
[2019-04-16] MEDS ORDERED: D5W IVP SCH (14:00)
[2019-04-16] MEDS ORDERED: CEFTAZIDIME IVP SCH (14:00)
--- NOTE | 2019-04-16 14:19 | NUR ---
NOTES: COMPLETED MOD BARIUM SWALLOW STUDY (MBSS), SEE FULL REPORT TO FOLLOW OR CALL [phone]. GIVEN THIN LIQUIDS (TSP, TSP, CUP, STRAW SEQUENTIAL, STRAW SEQUENTIAL WITH HEAD TURNED LEFT AND CHIN TUCK, CUP WASH AFTER PUDDING, WATER 1/4 TSP AFTER COOKIE), NECTAR THICK LIQUIDS (TSP, CUP, STRAW SEQUENTIAL), HONEY THICK LIQUID (TSP), PUDDING (TSP), AND MASTICATED SOLID (1/2 BUTTER COOKIE 3 CC PUDDING). INITIAL IMPRESSIONS: MODERATE OROPHARYNGEAL DYSPHAGIA WITH SIGNIFICANT INCREASE IN ORAL PREP AND OROPHARYNGEAL TRANSIT TIMES DUE TO SENSORIMOTOR DEFICITS AND COMPOUNDED BY REDUCED ABILITY TO USE SOME TREATMENT STRATEGIES (SECONDARY TO COGNITIVE-BEHAVIORAL DEFICITS, FATIGUE, AND RESPIRATORY DIFFICULTIES). NO ASPIRATION NOR SIGNIFICANT LARYNGEAL PENETRATION WITH MOST CONSISTENCIES BUT HIGH RISK PRESENT PARTICULARLY IF PRECAUTIONS ARE NOT USED. PATIENT DID HAVE TRACE DEEPER LARYNGEAL PENETRATION TO LEVEL OF VOCAL FOLDS (NOT EJECTED BUT HAD A WEAK COUGH) WITH THIN LIQUIDS VIA STRAW SEQUENTIAL SIPS DUE TO DELAYED SWALLOW AND LATE CLOSURE OF LARYNGEAL VESTIBULE. HEAD TURN LEFT AND CHIN TUCK DID NOT ELIMINATE THIS PENETRATION. VERY LIMITED CHIN TUCK AND HEAD TURN ROM. DEFICITS/COMPONENTS THAT INCREASE ASPIRATION/PENETRATION RISK AND REDUCE SWALLOW EFFICIENCY ARE THE FOLLOWING: Oral Impairment Tongue Control Bolus prep/mastication Bolus transport/lingual motion Oral residue poor sensation Init. pharyngeal swallow Pharyngeal Impairment Laryngeal elevation (LE) Ant. hyoid excursion Epiglottic movement Laryng vestibular closure Pharyngeal contraction Pharyngoesophageal segment opening Tongue base retraction GROSSLY FUNCTIONAL ESOPHAGEAL PHASE. TRIAL TX LIMITED NOTED ABOVE BUT DOES BETTER WITH TSP LEVEL BOLUSES, 2 HARD SWALLOWS, MORE TIME, AND LIQUID WASHES. CONSIDER PROVALE CUP THAT DELIVERS TSP LEVEL BOLUSES ESPECIALLY IF PT DESIRES THIN LIQUIDS AND SINCE SHE ALSO WANTS TO SELF-FEED (IF ON NECTAR THICK LIQUIDS). RECOMMENDATIONS: CONTINUE WITH PO INTAKE OF CURRENT PUREED AND NECTAR THICK LIQUID DIET WITH UPDATED AND POSTED ASPIRATION AND REFLUX PRECAUTIONS SINCE INTAKE ONLY 50% AND SLOW, CONSIDER 5 SMALL FREQUENT MEALS (SEND HIGH TWIN SUPPLEMENTS IN BETWEEN MEALS). EDUCATED/TRAINED STAFF AND PATIENT'S DTR IN PRECAUTIONS. D/W DR BLACKMAN SUMMARY OF MBSS RESULTS Pharyngeal residue Decreased pharyngeal sensation Addendum: 04/16/19 at 1424 by TIM GALE [employer]APING FOREMAN add Pharyngeal residue and poor sensation as deficits/components
[2019-04-16] MEDS ORDERED: CEFTAZIDIME2 GM IJ (14:29)
--- NOTE | 2019-04-16 14:31 | Discharge Instructions ---
Discharge Instructions Discharge Instructions Diet: other Additional Diet Information: Regualr, Pureed moist, nectar thick liquids, ensure enlive TID, Special Instructions Complete Ceftazadime 2gm IV Q8hr until 04/20/19 Please follow strict aspiration precautions when eating Not on hospice for now but will revisit at later time For Congestive Heart Failure Reminder Report to your physician any weight gain of 5 pounds or more in one week. Bryan Gray D.O. Apr 16, 2019 14:31
[2019-04-16 16:00] VITALS: BP 135/61
--- NOTE | 2019-04-16 16:05 | General Progress Note ---
Assessment/Plan Problem List: (1) Pneumonia ICD Codes: J18.9 - Pneumonia, unspecified organism SNOMED: 415988139 Qualifiers: (2) Sepsis ICD Codes: A41.9 - Sepsis, unspecified organism SNOMED: 21817969 Qualifiers: Qualified Codes: A41.9 - Sepsis, unspecified organism (3) Dehydration ICD Codes: E86.0 - Dehydration SNOMED: 77216763 (4) UTI (urinary tract infection) ICD Codes: N39.0 - Urinary tract infection, site not specified SNOMED: 14361653 Qualifiers: Qualified Codes: N30.00 - Acute cystitis without hematuria (5) Fever ICD Codes: R50.9 - Fever, unspecified SNOMED: 163352796 (6) Acute encephalopathy ICD Codes: G93.40 - Encephalopathy, unspecified SNOMED: 7384624 (7) GERD (gastroesophageal reflux disease) ICD Codes: K21.9 - Gastro-esophageal reflux disease without esophagitis SNOMED: 530178894 Status: progressing Assessment/Plan: 83 year old female with PMhx dementia/parkinson's presenting with pneumonia and UTI. #Sepsis (fever, WBC) 2/2 Pseudomonas pneumonia #bilateral pneumonia #metabolic encephalopathy 2/2 pneumonia- improving > s/p 30cc/kg in ER. total of 1L - admit to telemetry - DNR/DNI - blood cultures - sputum culture - urine legionella - check influenza. Tamiflu 75mg PO BID. If negative will D/C - Vancomycin per pharmacy (04/12 - 04/15/19) - Zosyn 3.375gm IV Q8hr (04/12 - 04/15/19) - Azithromycin 500mg IV daily (04/12 - 04/15/19) -Start levaquin 750mg PO daily (04/16 - ). Plan for a total of 7 days. End date 04/20/19 -continue tamiflu 75mg PO BID for a total of 5 days. Patient may have had flu- pneumonia - cautious use of isotonic fluids - aspiration precautions - ST eval- Barium swallow tomorrow - Hospice eval as per below - follow up urine legionella #staph hominis bacteremia, likely contaminant - monitor surveilance cultures #goals of care - discussed with daughter Jenn (medical decision maker) at length regarding goals of care. 32 minutes spent discussing options of full treatment and hospice. Jenn has discussed with her family and they have decided to pursue hospice. -they would like to continue antibiotics for this hospitalizations but would not like to return to hospital for future illneses - continue DNR/DNI - social work consult for hospice - will change POLST to reflect this #UTI, > Urine culture negative follow urine culture - abx as above #parkinson's disease #dementia - continue home sinemet - continue donepezil 10mg Po daily FENPPX DVTPPX: heparin SBQ GI PPX: none needed Fluids: 1/2 NS @ 50 cc/hr Diet: NPO except meds Lines: peripheral PT/OT: pending Code status: DNR/DNI Dispo: Back to SNF on hospice Reason for Continued Hospitalization: Pseudomonas pneumonia. D/c planning 35 minutes spent on this encounter. Discussed with RN, patient, and daughter ( DPOA). > 50% spent on counseling and care coordination. An additional 32 mintues spent discussing goals of care including hospice as detailed above. Time of note may not reflect time patient was seen. Subjective Allergies: Coded Allergies: DICLOFENAC (Verified Allergy, Unknown, 07/11/17) SULFA (SULFONAMIDE ANTIBIOTICS) (Verified Allergy, Unknown, 07/11/17) SULFAMETHOXAZOLE (Verified Allergy, Unknown, 07/11/17) TRIMETHOPRIM (Verified Allergy, Unknown, 07/11/17) Subjective No acute events overnight per nursing. Patient feels better. Still with generalized weakness. Per nursing had an episode of melena. Otherwise hemodynamically stable. Denies fevers chills cough chest pain shortness of breath. Daughter the DPOA would like hopsice Objective Last 24 Hour Vital Signs Date Time Temp Pulse Resp B/P (MAP) Pulse Ox O2 Delivery O2 Flow Rate FiO2 04/16/19 12:00 98.4 80 24 129/63 (85) 96 04/16/19 09:00 Room Air 2.0 Nasal Cannula 04/16/19 08:00 96.3 83 18 110/50 (70) 93 04/16/19 07:40 79 17 93 Room Air 21 04/16/19 04:00 97.2 78 20 149/71 (97) 96 04/16/19 00:00 Room Air 2.0 Nasal Cannula 04/16/19 00:00 97.1 79 20 158/79 (105) 92 04/15/19 23:35 Room Air Room Air 04/15/19 21:00 Room Air Room Air 04/15/19 20:00 97.0 81 20 124/61 (82) 94 04/15/19 19:19 72 16 97 Room Air 21 Intake and Output 04/15/19 04/16/19 19:00 07:00 Intake Total 50 ml 550 ml Balance 50 ml 550 ml IV Total 50 ml 550 ml Laboratory Tests 04/15/19 17:00: Vancomycin Level Trough 2.4L 04/15/19 23:15: Stool Occult Blood Negative Height (Feet): 5 Height (Inches): 5.00 Weight (Pounds): 110 Bryan Gray D.O. Apr 16, 2019 16:05
--- NOTE | 2019-04-16 16:13 | Discharge Summary ---
Discharge Summary Hospital Course Date of Admission Apr 12, 2019 at 16:18 Date of Discharge 04/16/19 Admitting Diagnosis SEPSIS HPI Elen Ely is a 83 year old female who was admitted on Apr 12, 2019 at 16: 18 for Sepsis Hospital Course This is an 83 year old female with a PMHx Parkinsons, dementia history of small bowel resection presenting with fever, cough, generalized weakness, SOB x 1 day. patient has a history of multiple hospitlizations for aspiration pneumonia over past 1-2 years. Family has thought about hospice but has not yet fully committed. The patient has been more lethargic and spiked fever yesterday to 101. Also with productive cough and SOB. WBC showed elevated white count of 18k and patient sent to ER for evaluation. Denies chest pain, nausea, vomiting, diarrhea. In the ER patient afebrile, pulse 79, respirations 20s, BP 102/58, saturating 90 -92% on RA. WBC 18k, lactate 1.5, Chem panel WNL, Troponin negative. ProBNP 1493. Given vanc/zosyn and 1.5L of IV fluids. UA positive with 1+leuk esterase 5 -10 WBC. Endorses suprapubic tenderness. The patient was admitted for sepsis secondary to pneumonia and UTI. Sputum culture grew Pseudomonas antibiotics de-escalated to Cefepime 2gm IV Q8hr ( daughter refused levaquin). Patient completed 5 days of Tamiflu for possible underlying influenza. Patient is to continue antibiotics for 4 more days to complete a 7-day course. Urine culture showed no growth. Patient's mental status returned to baseline and felt better. Blood culture turned positive for staph hominis, likely contaminant. Extensive discussion took place with the daughter on day of discharge taking approximately 35 minutes discussing goals of care including hospice. At first the daughter wanted the patient to go to the facility on hospice, however she then changed her mind and would like to continue full care until she finds a another hospice facility closer to her home. She elected to continue antibiotics intravenously but agreed to discontinue aspirin and statin as these are life-prolonging medications. Patient medically [facility]. #Sepsis (fever, WBC) 2/2 Pseudomonas pneumonia - resolved #bilateral pneumonia #metabolic encephalopathy 2/2 pneumonia- improving > s/p 30cc/kg in ER. total of 1L > legionella negative - admit to telemetry - DNR/DNI - Tamiflu 75mg PO BID. If negative will D/C - Vancomycin per pharmacy (04/12 - 04/15/19) - Zosyn 3.375gm IV Q8hr (04/12 - 04/15/19) - Azithromycin 500mg IV daily (04/12 - 04/15/19) - Cefepime 2gm IV Q8hr (04/16 - ) End date 04/20/19 -continue tamiflu 75mg PO BID for a total of 5 days. Patient may have had flu- pneumonia - cautious use of isotonic fluids - strict spiration precautions - ST eval- Barium swallow tomorrow - Hospice eval as per below - follow up urine legionella #staph hominis bacteremia, likely contaminant - no further interventions - continue to monitor #goals of care - discussed with daughter Jenn (medical decision maker) at length regarding goals of care. See above -they would like to continue antibiotics for this hospitalizations but would not like to return to hospital for future illneses - continue DNR/DNI - will change POLST to reflect this #UTI, > Urine culture negative follow urine culture - abx as above #parkinson's disease #dementia - continue home sinemet - continue donepezil 10mg Po daily FENPPX Dispo: Back to SNF >30 minutes spent on this encounter. Discussed with RN, patient, and daughter ( DPOA). > 50% spent on counseling and care coordination. An additional 33 mintues spent discussing goals of care including hospice as detailed above. Time of note may not reflect time patient was seen. Discharge Condition Upon Discharge: other - guarded Discharge Disposition Patient was discharged to SNF Discharge Diagnoses: (1) Pneumonia (2) Parkinsons disease (3) Acute encephalopathy (4) UTI (urinary tract infection) (5) Dehydration (6) Sepsis (7) Acute respiratory failure Discharge Instructions Discharge Instructions Additional Diet Information: Regualr, Pureed moist, nectar thick liquids, ensure enlive Isaac RUST Evan D.O. Apr 16, 2019 16:13
[2019-04-16] MEDS ORDERED: CEFEPIME-D2 GM/50 ML IVPB (16:17)
--- NOTE | 2019-04-16 16:24 | NUR ---
DISCHARGE PLANNING DISCHARGE ORDER NOTED Patient has been accepted to; Bed: Skilled or Intermediate OR ARU or Hospice for Nurse to Nurse report [facility] ETA for transportation: DISCHARGE PLANNING DISCHARGE ORDER NOTED Patient has been accepted to; [facility] [id number] [place] [id number] Bed: 120-b [phone] for Nurse to Nurse report [facility] ETA for transportation: 18:00
--- NOTE | 2019-04-16 17:01 | Cardiology Report ---
APPROVED REPORT EKG Measurement Heart [id number] Sinus rhythm with premature supraventricular complexes T wave abnormality, consider anterior ischemia Abnormal ECG
--- NOTE | 2019-04-16 18:30 | NUR ---
NURSE NOTES: Report was given by Carlene MAHMOOD to alejandra Cook at bedside.Daughter will take patient belongings.[facility] ambulance schedule to take patient.,waiting for [facility]
--- NOTE | 2019-04-16 19:40 | NUR ---
HAND-OFF: Report given to JUICEU RN.
[2019-04-16 20:00] VITALS: BP 142/71
--- NOTE | 2019-04-16 20:04 | NUR ---
NURSE NOTES: Received report from TIMOTEO Nava. Patient awake and verbally responsive to let her needs known but with forgetfulness and confusion. Patient breathing unlabored on room air. IV note on the left upper arm intact and patent. Bed placed at the lowest with alarm, brake, and siderails up for safety. Call light placed within reach. Will continue to monitor and provide care as ordered. Patient is awaiting for ambulance to be discharged.
--- NOTE | 2019-04-16 20:55 | NUR ---
NURSE NOTES: Skinny and Ryan Adame from [facility] arrived to transport patient to [facility]. Patient left the unit at 2054 on a gurney. Patient skin intact, abrasion along the back present previously before the admission. Belongings confirmed with Daughter. IV kept in to continue antibiotic therapy. New IV placed today during the dayshift. Patient breathing unlabored without distress on room air. VS: 124/58 HR 80. Denies pain. Documentation given in a secured file. Left the unit in stable condition.
--- NOTE | 2019-04-18 16:47 | Diagnostic Imaging Report ---
Indication: Dysphagia Procedure and findings: A single hvac r tech fluoroscopic image of the neck performed in the lateral projection followed by real-time fluoroscopic video/cine imaging performed in a lateral projection in conjunction with the speech pathologist evaluation. Variable consistencies of barium given per mouth. Findings: Significant abnormalities of both oral and pharyngeal phases of swallowing are demonstrated. Total fluoroscopic time: 285 seconds. Total number of fluoroscopic images obtained: 13 No aspiration identified. Laryngeal penetration was noted on multiple views. Abnormal video swallow. Please refer to speech pathology evaluation for more information.
== END 2019-04-16 20:55 | disposition home or self-care (01) | DRG 871 ==
LOC: EDBD 15:04 → EMR 16:16 → 2E 16:18 → EDBEDREQ 17:23 → 2E 04-13 01:54 → 4E 04-13 13:31
DX: A41.9 Sepsis, unspecified organism (principal); J18.9 Pneumonia, unspecified organism; G93.41 Metabolic encephalopathy; E43 Unspecified severe protein-calorie malnutrition; N39.0 Urinary tract infection, site not specified; Z68.1 Body mass index [BMI] 19.9 or less, adult; Z88.1 Allergy status to other antibiotic agents; Z88.2 Allergy status to sulfonamides; G20 Parkinson's disease; F02.80 Dementia in other diseases classified elsewhere, unspecified severity, without behavioral disturbance, psychotic disturbance, mood disturbance, and anxiety; E86.0 Dehydration; K21.9 Gastro-esophageal reflux disease without esophagitis; Z66 Do not resuscitate
CPT/HCPCS: 36415; 71045; 74230; 80048; 80053; 80202; 81003; 82164; 82270; 82550; 82553; 83605; 83690; 83735; 83880; 84100; 84484; 85007; 85025; 85610; 85730; 86710; 87040; 87070; 87081; 87086; 87181; 87205; 92610; 93005; 94664; 96361; 96365; 96367; 99285; J7030